=== PATIENT | male | born 1960 | race Caucasian/White ===

== ENCOUNTER 2023-07-14 07:47 | Day surgery (SDC) | payer BC, SELFPAY ==
[2023-07-14] VITALS (21 sets, daily range): BP systolic 13–158; BP diastolic 59–103; BMI 20.2
[2023-07-14 08:11] LABS: Hematocrit 49.6 % (39.0-52.0); Hemoglobin 16.9 g/dL (13.0-18.0); Mean Corp Hgb Conc. 34.1 g/dL (33.0-37.0); Mean Corpuscular Hgb 32.8 pg (27.0-31.0); Mean Corpuscular Volume 96.3 fL (80.0-94.0); Mean Platelet Volume 9.2 fL (7.4-10.4); Platelet Count 316 10^3/uL (130-400); Red Blood Cell Count 5.15 10^6/uL (4.70-6.10); Red Cell Dist. Width 13.5 % (11.5-14.5)
[2023-07-14 08:21] LABS: INR 0.92; PT 12.5 Sec (11.4-14.6)
[2023-07-14 08:22] LABS: APTT 25.4 Sec (23.4-35.0)
[2023-07-14 08:27] LABS: Blood Urea Nitrogen 16 mg/dl (9-20); Calcium 9.4 mg/dl (8.4-10.2); Carbon Dioxide 29 mmol/L (22-30); Chloride 96 mmol/L (98-107); Glucose 190 mg/dl (70-99); Potassium 4.4 mmol/L (3.5-5.1); Sodium 134 mmol/L (135-145); eGFR > 60.00
[2023-07-14 09:02] LABS: Glucose - Point of Care 158 mg/dl (70-99)
[2023-07-14 09:45] LABS: Troponin I < 0.012 ng/ml
--- NOTE | 2023-07-14 11:32 | W.SUR.PREOP ---
Pre-Operative Surgical Note
-
I have examined this patient prior to the performance of the scheduled procedure.
The patient's condition is unchanged from the time of the current History and
Physical and the patient is able to undergo the scheduled procedure.
--- NOTE | 2023-07-14 13:15 | W.IMMPOSTOP ---
Surgical Immed Post Op Note
-
Primary Surgeon: Esvin Merritt III, MD
Assisting Surgeon: Peter Chapin MD PGY2
Pre-op Diagnosis: PAOD
Post-op Diagnosis: Same
Procedure Performed:
1. Ultrasound guided left FIBERGLASS BOAT BUILDER 7Fr access
2. [id number] angiogram, bilateral lower extremity angiograms
3. IVL Bilateral common and external iliac
4. Right external iliac stent x 2 (7x59)
5. Left common iliac stent (8x39)
6. Left external iliac stent (7x59)
Anesthesia Type: MAC
Specimen / Cultures: None
Estimated Blood Loss: 25cc
Complications: None
Operative Findings: Ultrasound-guided left FIBERGLASS BOAT BUILDER 7Fr access. Initial angio showed diffuse bilateral iliac disease. The right side bypass was widely patent. To get into the right iliac, the left proximal common iliac required IVL and stenting. Once
into the right iliac, the entire external iliac was IVL'd and stented. The proximal right common iliac was IVL'd but had good angiographic result and a bounding femoral pulse so it was decided not to stent at this time. The left external iliac was
IVL'd and stented prior to shooting a [employer] run off. The run off noted a chronically occluded left SFA with late filling of the pop. There is peroneal flow into the foot, late filling into the AT, and occluded PT.
[2023-07-14 14:27] LABS: Glucose - Point of Care 173 mg/dl (70-99)
--- NOTE | 2023-07-14 15:34 | PTCARENOTE ---
Pt arrived from PACU. Pt alert and oriented. Reinforced post op instructions. revieewd all discharge instruction with good understanding. Family updated via phone. Ultra sound present and doing procedure now, meal ordered. Pulses still doppler omn
the Left and palpbale on the rt. Denies any pain which he came in with.
--- NOTE | 2023-07-14 15:58 | OR.RPT ---
Operative Report
Operative Report
Date of Operation: 07/14/2023
Pre Op Diagnosis:
1.) Severe peripheral arterial occlusive disease
2.) Suspected threatened right lower extremity bypass based on surveillance duplex results
3.) Critical limb threatening ischemia left lower extremity manifested by ischemic rest pain
Post Op Diagnosis:
1.) Severe peripheral arterial occlusive disease
2.) Suspected threatened right lower extremity bypass based on surveillance duplex results
3.) Critical limb threatening ischemia left lower extremity manifested by ischemic rest pain
Procedure:
1.) Intravascular lithotripsy to left common iliac artery (10 mm x 30 mm L6 shockwave balloon)
2.) Balloon angioplasty and stenting of left common iliac artery (8 mm x 39 mm GORE VBX; postdilated to 10 mm proximal)
3.) Intravascular lithotripsy to right external iliac artery (8 mm x 60 mm M5 shockwave balloon)
4.) Balloon angioplasty and stenting of right external iliac artery (overlapping 7 mm x 59 mm GORE VBX stents x 2)
5.) Intravascular lithotripsy to right common iliac artery (8 mm x 60 mm M5 shockwave balloon)
6.) Intravascular lithotripsy to external iliac artery (8 mm x 60 mm M5 shockwave balloon)
7.) Balloon angioplasty and stenting of left external iliac artery stenosis (7 mm x 39 mm GORE VBX stent)
8.) Diagnostic aortobiiliac arteriogram
9.) Diagnostic BILATERAL lower extremity arteriograms
10.) Ultrasound-guided percutaneous access to the left common femoral artery
Surgeon: Esvin Merritt III, MD
Balance Weigher: Peter Chapin MD PGY-2
Anesthesia: Sedation with local
Complications: None
Estimated Blood Loss: 25 cc
History and Indications for Procedure: 63-year-old male with severe bilateral lower extremity peripheral arterial occlusive disease.
Procedure in Detail: Shreyas Bardales was correctly identified and placed supine on the operating table. After adequate induction of anesthesia the bilateral groins were prepped and draped in the usual sterile fashion. A timeout was performed with the
nursing and anesthesia staff confirming the patient's identity as well as the nature and laterality of the procedure.
The left common femoral artery was identified under ultrasound guidance. The artery was patent. The superior and inferior aspects of the femoral head were identified with radiographic guidance and marked at the skin level. The proposed puncture site
was infiltrated with local anesthesia. We saved a copy of the ultrasound image to the medical record. Under ultrasound guidance we accessed the left common femoral artery with a micropuncture needle and upsized to a 5 Fr sheath over a Bentson wire.
We could not pass the Bentson wire into the aorta through the left common iliac artery. A retrograde arteriogram was performed through the 5 Maldivian sheath which demonstrated heavily calcified plaque in the left common iliac artery contributing to a
critical stenosis. The left iliac artery stents were patent. The distal left external iliac artery had heavily calcified plaque contributing to high-grade stenosis.
Systemic heparin was administered at this point. Using a Glidewire and Quickcross catheter under roadmap guidance we were able to navigate across the left common iliac artery and into the aorta. The wire was exchanged out for a Storq wire. A 7
Maldivian sheath was then placed through the left femoral access. The wire was then exchanged out for a V18 wire through the Quickcross catheter. Due to the heavily calcified nature of the left common iliac artery plaque and in an effort to achieve
maximum luminal gain with endovascular intervention I elected to proceed with intravascular lithotripsy. A 10 mm x 30 mm L6 shockwave balloon was placed across the left common iliac artery stenosis under roadmap guidance. Alternating rounds of
lithotripsy pulse delivery at sub-nominal pressure and angioplasty at nominal pressure was performed across the stenosis. In between rounds of pulse delivery and angioplasty the balloon was deflated and repositioned under roadmap guidance. All 300
pulses were delivered. Subsequent arteriogram demonstrated an nice result following lithotripsy. Under roadmap guidance over the V18 wire I then positioned a 8 mm x 39 mm GORE VBX stent. The stent was deployed in the desired location. I then
postdilated the proximal aspect of the stent with a 10 mm angioplasty balloon. Subsequent arteriogram demonstrated an excellent technical result with a widely patent left common iliac artery stent and no significant residual stenosis identified.
At this point we continued on with the remainder of the endovascular intervention. The Shepherimedo hook flush catheter was advanced into the distal abdominal aorta and a diagnostic aorto-biiliac arteriogram was performed:
AORTO-ILIAC ARTERIOGRAM:
Aorta: Heavily calcified circumferentially. Patent. No stenosis identified
Right common iliac artery: Heavily calcified plaque. Stenoses identified.
Right external iliac artery: Diffusely and heavily calcified. High-grade stenoses seen throughout.
Left common iliac artery: Patent stent with no significant residual stenosis
Left external iliac artery: Patent stents proximally. Heavily calcified [place] distal external iliac artery with areas of high-grade stenosis extending to the inguinal ligament
Under roadmap guidance using a Glidewire and the Shepherds hook catheter we selected the right common iliac artery and then the external iliac artery. A Quickcross catheter was tracked up and over the aortic bifurcation and placed in the distal
external iliac artery. A diagnostic right lower extremity arteriogram was then performed which demonstrated the following:
Right LOWER EXTREMITY:
Common femoral artery: Patent with no significant stenosis identified
Profunda femoral artery: Patent with no significant stenosis identified
Superficial femoral artery: Occluded
Bypass: Patent. Proximal and distal anastomoses widely patent with no stenosis identified. Vein conduit widely patent with no stenosis identified.
The popliteal artery below the knee was patent with no stenosis identified. Three-vessel tibial artery runoff was visualized to the distal calf
Through the Quickcross catheter we selected the profunda femoral artery with a Glidewire. Exchanged out for a 7 Fr 45 cm sheath over a Storq wire. Exchanged out for a 0.014 wire. Due to the heavily calcified nature of the right external iliac
artery plaque as well as the right common iliac artery plaque and in an effort to achieve maximum luminal gain with endovascular intervention I elected to proceed with intravascular lithotripsy. A 8 mm x 60 mm M5 shockwave balloon was placed across
the right external iliac artery stenosis under roadmap guidance. Alternating rounds of lithotripsy pulse delivery at sub-nominal pressure and angioplasty at nominal pressure was performed across the stenosis. In between rounds of pulse delivery and
angioplasty the balloon was deflated and repositioned under roadmap guidance. Upon repositioning of the balloon and subsequent reinflation it was clear that the balloon had torn. 150 pulses had been delivered at this point to the right external
iliac artery. Therefore I removed the M5 balloon and opened a new one. I continued with pulse delivery and angioplasty on both the right external iliac artery and then the right common iliac artery. Not all pulses were utilized to treat these
segments and some where left for treatment of the left external iliac artery disease. Subsequent arteriogram demonstrated an nice result following lithotripsy. Overlapping 7 mm x 59 mm GORE VBX stents were placed in the desired location under
roadmap guidance within the right external iliac artery. Each was deployed individually in the desired location. Subsequent arteriogram through the 7 Maldivian sheath demonstrated an excellent technical result with brisk flow through the right iliac
system. The right common iliac artery was widely patent with brisk flow. The right external iliac artery stents were widely patent with no significant residual stenosis identified. There was brisk outflow through the common femoral artery and the
visualized proximal portion of the bypass.
I then focused my attention on the distal left external iliac artery disease. The 7 Maldivian sheath was pulled back into the distal left external iliac artery. The 0.014 wire was pulled back and readvanced into the aorta. A retrograde arteriogram
was performed through the sheath under magnification view to clearly visualize the calcified left external iliac artery disease. Due to the heavily calcified nature of the left external iliac artery plaque and in an effort to achieve maximum
luminal gain with endovascular intervention I elected to proceed with intravascular lithotripsy here. The 8 mm x 60 mm M5 shockwave balloon was placed across the left external iliac artery plaque. Alternating rounds of lithotripsy pulse delivery
at 7 nominal pressure and angioplasty at nominal pressure was performed across the left external iliac artery stenosis. All remaining pulses on the balloon catheter were utilized. Subsequent arteriogram demonstrated a nice result following
lithotripsy. Under roadmap guidance a 7 mm x 59 mm GORE VBX stent was placed across the distal left external iliac artery and deployed in the desired location. A completion arteriogram demonstrated an excellent technical result with a widely
patent left iliac arterial system and no residual stenosis identified. There was brisk outflow from the iliac system into the left lower extremity.
A completion runoff arteriogram of the left lower extremity was performed
LEFT LOWER EXTREMITY:
Common femoral artery: Widely patent with no stenosis identified
Profunda femoral artery: Patent with no stenosis identified
Superficial femoral artery: Chronically occluded
Popliteal artery: Reconstitutes above the knee but is heavily diseased with areas of stenosis identified. Patent below the knee but small diameter. No obvious stenosis identified.
Anterior tibial artery: Patent but diffusely small in diameter throughout. Sluggish flow lagging well behind the peroneal artery. Dorsalis pedis artery is minimally visualized and appears to occlude distally
Peroneal artery: Dominant tibial artery runoff. Continues to the ankle where large posterior branch reconstitutes the distal PT and plantar branches in the foot.
Posterior tibial artery: Occluded
Satisfied with this result we then concluded the procedure. Protamine was administered. The sheath was pulled from the left femoral access and direct manual pressure was held over the puncture site. Hemostasis was achieved. A sterile dressing was
applied.
The patient tolerated the procedure well and was taken to the recovery area in stable condition.
Attestation: I was present and responsible for the entire procedure.
Signed:
Esvin Merritt III, MD
[facility] Vascular Surgery
[phone] (crsk)
[2023-07-14] MEDS: TYLENOL 650 MG PO (17:15)
[2023-07-14] MEDS: NSS 1000 IV (17:39)
--- NOTE | 2023-07-17 13:00 | W.PV.INTER ---
VPI Note
Pre Admission Note
Functional Status: Full
Ambulation: Ambulate Independently
Pre Op Medications
Pre Op ASA: Yes
Pre Op Statin: Yes
Pre Op GRANT Inhibitor/ARB: No
Pre Op P2y12 Antagonist: Clopidogrel
Pre Op Beta Blockers: Chronic > 30 Days
Pre Op Chronic Anticoagulant: None
Pre Op Cilostazol: No
Post Op Medications
Post Op ASA: Yes
Post Op Statin: Yes
Post Op GRANT Inhibitor/ARB: No
Post Op P2y12 Antagonist: Clopidogrel
Post Op Beta Blockers: Chronic > 30 Days
Post Op Chronic Anticoagulant: None
Post Op Cilostazol: No
== END 2023-07-14 18:22 | disposition home or self-care (01) ==
LOC: CATH 07:47
PROVIDERS: Nurse Practitioner Acute Care; ATTENDING PHYSICIAN Surgery Vascular Surgery; FAMILY PHYSICIAN Family Medicine; OTHER PHYSICIAN Internal Medicine Cardiovascular Disease
DX: I70.222 Atherosclerosis of native arteries of extremities with rest pain, left leg (principal); I70.201 Unspecified atherosclerosis of native arteries of extremities, right leg; Z98.890 Other specified postprocedural states; E13.9 Other specified diabetes mellitus without complications; Z79.84 Long term (current) use of oral hypoglycemic drugs; Z79.82 Long term (current) use of aspirin; Z79.02 Long term (current) use of antithrombotics/antiplatelets; I10 Essential (primary) hypertension; I25.10 Atherosclerotic heart disease of native coronary artery without angina pectoris; I25.2 Old myocardial infarction
CPT/HCPCS: C9765 ×2; 75625; 75716; 76937; 80048; 82962; 84484; 85027; 85610; 85730; 93005; 93971; C1725; C1769; C1874; C1894; C9764; Q9967

== ENCOUNTER → 2023-08-29 07:06 | Outpatient (REF) | payer BC, SELFPAY ==
[2023-08-29] MEDS: LEXISCAN 0.400000000000000022 MG IV (08:36)
[2023-08-29] MEDS: FLUSH (NSS) 1 FLUSH IV (08:36)
== END ==
LOC: RCS 07:06
PROVIDERS: ATTENDING PHYSICIAN Internal Medicine Cardiovascular Disease; FAMILY PHYSICIAN Family Medicine
DX: R07.9 Chest pain, unspecified (principal)
CPT/HCPCS: 78452; 93017; A9500; J2785

== ENCOUNTER 2023-09-01 09:37 | Inpatient (IN) | payer BC, SELFPAY ==
[2023-08-28 09:33] VITALS: BMI 21.3
[2023-08-28 09:43] LABS: % Basophils 0.9 % (0-2); % Eosinophils 3.7 % (0-6); % Immature Granulocytes 0.4 % (0-0.5); % Lymphocytes 26.7 % (20.5-51.1); % Monocytes 8.5 % (1.7-9.3); % Neutrophils 59.8 % (42.2-75.2); Absolute Basophils 0.1 10^3/uL (0-0.2); Absolute Eosinophils 0.5 10^3/uL (0-0.7); Absolute Immature Granulocytes 0.1 10^3/uL (0-0.05); Absolute Lymphocytes 3.3 10^3/uL (1.2-3.4); Absolute Monocytes 1.1 10^3/uL (0.1-0.6); Absolute Neutrophils 7.4 10^3/uL (1.4-6.5); Hematocrit 47.2 % (39.0-52.0); Mean Corp Hgb Conc. 33.9 g/dL (33.0-37.0); Mean Corpuscular Hgb 32.1 pg (27.0-31.0); Mean Corpuscular Volume 94.8 fL (80.0-94.0); Mean Platelet Volume 9.3 fL (7.4-10.4); Nucleated Red Blood Cells % 0 % (-); Platelet Count 242 10^3/uL (130-400); Red Blood Cell Count 4.98 10^6/uL (4.70-6.10); Red Cell Dist. Width 13.7 % (11.5-14.5); White Blood Cell Count 12.4 10^3/uL (4.8-10.8)
[2023-08-28 09:51] LABS: INR 0.93; PT 12.7 Sec (11.4-14.6)
[2023-08-28 09:52] LABS: APTT 27.6 Sec (23.4-35.0)
[2023-08-28 10:15] LABS: Blood Urea Nitrogen 20 mg/dl (9-20); Calcium 9.7 mg/dl (8.4-10.2); Carbon Dioxide 27 mmol/L (22-30); Chloride 103 mmol/L (98-107); Estimated Creatinine Clearance 121 ml/min; Glucose 148 mg/dl (70-99); Potassium 4.7 mmol/L (3.5-5.1); Sodium 136 mmol/L (135-145); eGFR > 60.00
--- NOTE | 2023-08-29 15:09 | PTCARENOTE ---
Patients 08/28 CXR abnormal Eulalia @ Dr. Cross office and Dr. Vaughn notified- no additional interventions required.
[2023-09-01] VITALS (15 sets, daily range): BP systolic 62–141; BP diastolic 43–108; BMI 19.1
[2023-09-01 10:57] LABS: Glucose - Point of Care 166 mg/dl (70-99)
[2023-09-01] MEDS: BACTROBAN NASAL 1 GRAM NASAL (11:24)
[2023-09-01] MEDS: PERIDEX 0.12% ORAL RINSE 15 ML PO (11:24)
[2023-09-01] MEDS: NSS 500 IV (11:25)
--- NOTE | 2023-09-01 15:25 | CON.INTV ---
Consultation
Consultation Request
Date/Time Consultation Requested: 09-01-23
Date/Time Consultation Performed: 09-01-23
Requesting Provider: Dr Merritt
Performing Provider: Dr Berman
Reason for Consultation: LLE bypass
Medical History
-
Chief Complaint: s/p JENNIFER bypass
History of Present Illness:
Mr Shreyas Bardales is a 63/M adm 09-01 for vascular surgery for known h/o PAD with persistent ischemic rest pain in L foot.
Seen by Dr Merritt at office, he recommended LLE bypass, surgery performed today with no major issues.
Smoker, not on home O2 or BDs, reports mild intermittent cough.
Past Medical History
Past Medical History: Other (see A&P for PMH/PSH)
Social History
Tobacco: Smoker
Alcohol: None
Drug: None
Personal: Single
Living: With Roomate
Employment: Employed
Family History
Family History: Reviewed & Not Pertinent
Allergies / Home Medications
Allergies
Allergy/AdvReac Type Severity Reaction Status Date / Time
lisinopril Allergy cough Verified 08/24/23 10:22
varenicline Allergy chest pain Verified 08/24/23 10:22
Home Medications
Medication Instructions Recorded Confirmed Last Taken Type
aspirin 81 mg tablet,delayed 81 mg PO DAILY 05/13/13 08/24/23 07/14/23 History
release
nitroglycerin 0.4 mg sublingual 0.4 mg sublingual [id number] PRN 05/15/13 08/24/23 07/12/23 03:00 Rx
tablet chest pain #60 tabs 2 tabs
amlodipine 5 mg tablet 5 mg PO DAILY 05/20/14 08/24/23 07/13/23 18:00 History
5 mg
clopidogrel 75 mg tablet 75 mg PO DAILY 02/01/19 08/24/23 07/14/23 07:00 History
75 mg
salicylic acid 6 % topical gel 40 gm topical PRN PRN skin 05/12/20 08/24/23 07/12/23 History
(Keralyt Rx) irritation 40 gm
metformin 500 mg tablet 1,000 mg PO BID AT 0800,1700 05/19/20 08/24/23 07/12/23 19:00 Rx
1000 mg
metoprolol succinate 50 mg 50 mg PO QPM 05/19/20 08/24/23 07/13/23 19:00 Rx
tablet,extended release 24 hr 50 mcg
atorvastatin 40 mg tablet 40 mg PO QPM 07/11/23 08/24/23 07/13/23 18:00 History
40 mg
empagliflozin 10 mg tablet 10 mg PO QPM 07/11/23 08/24/23 07/11/23 19:00 History
(Jardiance) 10 mg
multivitamin 1 tab PO DAILY 07/11/23 08/24/23 07/13/23 08:00 History
1 tab
isosorbide mononitrate 60 mg 60 mg PO BID 08/24/23 08/24/23 Unknown History
tablet,extended release 24 hr
Review of Systems
-
History Source: Patient
All other systems: Negative unless noted
Respiratory: Cough (mild intermittent chronic cough, mostly dry)
Cardiac: Other (incisional JENNIFER pain)
Vitals / Labs / Diagnostic Testing
Vital Signs
Temp Pulse Resp BP Pulse Ox
98.4 F 75 19 141/63 92
09/01/23 10:17 09/01/23 10:17 09/01/23 10:17 09/01/23 10:17 09/01/23 10:17
Lab Data
08/28/23 09:30
08/28/23 09:30
Microbiology
08/28/23 09:30 Nose MRSA Screen - Final
No Methicillin Resistant Staphylococcus aureus isolated.
Diagnostic Testing:
Physical Exam
-
HEENT: Normocephalic and Moist Mucous Membranes
Cardiovascular: Regular Rhythm, Murmur (n) and Peripheral Edema (n)
Respiratory: Rhonchi (few scattered) and Non-Labored Respirations
GI: Soft, Non Distended and Non Tender
Neurology: Awake, AO x 3 and No Motor Deficits
Skin: Dry
General: Comfortable
Assessment
-
Assessment:
Mr Shreyas Bardales is a 63/M adm 09-01 for vascular surgery for known h/o PAD with persistent ischemic rest pain in L foot. Seen by Dr Merritt at office, he recommended LLE bypass, surgery performed today with no major issues. Smoker, not on home O2 or
BDs, reports mild intermittent cough. Seen at PACU, on 4L, POx 98%, respiratory weiner comfortable
Impression:
PAD with persistent ischemic rest pain in L foot
S/p L common femoral endarterectomy with patch angioplasty, L common femoral artery to below-knee popliteal artery bypass
Chronic cough
Conditions DIRECTOR OF MEDICAL SERVICES:
PAD, R/L SFA, L iliac stent 2013, fem to popliteal bypass 2019
CAD, s/p AMI, s/p PTCA SHERIN 2012
T2DM
HLD
Bilateral CA disease
L ureter lithotripsy and stent 2015
Smoker
Plan:
Postoperative surgical intensive care unit monitoring
Supplemental oxygen as needed
Incentive spirometry
Aspiration precautions
Neuro and vascular checks per protocol
Vascular surgery following-correspondence and operative notes reviewed
Albuterol nebs prn
Guaifenesin
Acapella valve
Advised to quit smoking
Rec pulm follow up after d/c
DVT prophylaxis
Early nutrition
Early mobilization
D/w Mr Bardales and AIRPLANE PATROL PILOT
Critical care time: 35 min
Diagnostic tests:
CXR 08-28-23: PA/lat, emphysematous nixon, lateral with flat diaphragms
[2023-09-01 16:31] LABS: ACT-LR - POC 387 Seconds (116-155)
[2023-09-01 16:38] LABS: Glucose - Point of Care 187 mg/dl (70-99)
[2023-09-01 17:34] LABS: ACT-LR - POC 211 Seconds (116-155)
[2023-09-01 17:44] LABS: Glucose - Point of Care 209 mg/dl (70-99)
[2023-09-01 18:28] LABS: Hematocrit 42.4 % (39.0-52.0); Hemoglobin 14.5 g/dL (13.0-18.0); Mean Corp Hgb Conc. 34.2 g/dL (33.0-37.0); Mean Corpuscular Hgb 32.7 pg (27.0-31.0); Mean Corpuscular Volume 95.5 fL (80.0-94.0); Mean Platelet Volume 9.2 fL (7.4-10.4); Platelet Count 245 10^3/uL (130-400); Red Blood Cell Count 4.44 10^6/uL (4.70-6.10); Red Cell Dist. Width 13.7 % (11.5-14.5); White Blood Cell Count 23.5 10^3/uL (4.8-10.8)
--- NOTE | 2023-09-01 18:34 | OR.RPT ---
Operative Report
Operative Report
Date of Operation: September 01, 2023
Pre Op Diagnosis: Critical limb threatening ischemia left lower extremity manifested by ischemic rest pain and nonhealing left lateral foot wound
Post Op Diagnosis: Critical limb threatening ischemia left lower extremity manifested by ischemic rest pain and nonhealing left lateral foot wound
Procedure:
1.) Left common femoral endarterectomy with patch angioplasty using bovine pericardium
2.) Left common femoral artery to below-knee popliteal artery bypass with 6 mm ring reinforced Propaten graft
Surgeon: Esvin Merritt III, MD
Billet Cutter: Ilan Blanc MD PGY-1
Anesthesia: General
Complications: None
Estimated Blood Loss: 200 cc
History and Indications for Procedure: 63-year-old male with critical limb threatening ischemia of the left lower extremity.
Procedure in Detail: Shreyas Bardales was correctly identified and placed supine on the operating table. After adequate induction of anesthesia the abdomen, pelvis and left leg were prepped and draped in the usual sterile fashion. The patient received
preoperative antibiotics. A timeout was performed with the nursing and anesthesia staff confirming the patients identity and the nature and laterality of the procedure.
A vertical incision was made over the left groin. Electrocautery and sharp dissection were used to expose the femoral vessels. Lymphatics were ligated between silk ties and clips. Proximal control was obtained on the proximal common femoral artery
at the inguinal ligament. Distal dissection was continued towards the femoral bifurcation. The distal common femoral artery and femoral bifurcation were heavily calcified. The proximal superficial femoral artery was exposed and encircled with a
vessel loop. The profunda femoral artery was sharply exposed to the first branch point. Distal control was obtained on these 2 branches.
A distal incision was made on the proximal left medial calf. The below the knee popliteal artery was carefully exposed and proximal and distal control obtained with vessel loops. There was some calcification of the popliteal artery but a soft spot
was identified for the distal anastomosis.
A tunnel was created between the two incisions.
A 6 mm ringed Propaten graft was brought through the tunnel, keeping the proper orientation with the blue dots on the graft.
Systemic heparin was administered.
The patient was systemically heparinized. The proximal and distal vessel loops were secured. An 11-blade and Momin scissors were used to make and extend the arteriotomy on the common femoral artery. The arteriotomy was carried distally to the
femoral bifurcation. The arteriotomy was extended up to the proximal common femoral artery. An endarterectomy was performed in the standard fashion with a [place] elevator. The proximal extent of the plaque was transected and then additional
elements of plaque were pulled out from the distal external iliac artery using forceps and clamps. The distal end of the plaque feathered nicely at the origin of the profunda femoral artery. The endarterectomy plane was then irrigated with
heparinized saline solution and any loose fronds of tissue were removed. I brought onto the field a precut piece of bovine pericardium and this was used as a patch. The patch was then sewn in place using a running 6-0 Prolene suture. Prior to the
completion of the anastomosis, we forward and back flushed the artery. The anastomosis was then completed. The proximal and distal vessel loops were then released. There was an excellent pulse within the common femoral artery and profunda
femoral artery. The superficial femoral artery was chronically occluded. The suture line was closely inspected for hemostasis which was achieved. The proximal and distal vessel loops were then reapplied. An arteriotomy made in the bovine
pericardium patch with an 11-blade and extended proximally and distally with Momin scissors.The end of the graft was beveled and an end-to-side anastomosis was created with a running CV 6 [place]-Cristobal suture. Following this the vessel loops were
removed. Hemostasis was achieved at the suture line. There was brisk pulsatile bleeding from the distal end of the graft. The graft was back flushed with heparinized saline and a soft clamp applied to the graft just distal to the anastomosis.
I then secured the proximal and distal loops on the below the knee popliteal artery. An 11-blade was used to carefully make an arteriotomy. This was extended proximally and distally with Momin scissors. We flushed the distal artery with heparinized
saline which flushed easily. The graft was pressurized, shortened and beveled for the anastomosis. We sewed an end-to-side anastomosis to the popliteal artery using a running 7-0 Prolene suture. Prior to the completion of the anastomosis we forward
flushed the graft and irrigated under the mosquera with heparinized saline. The anastomosis was completed and we removed the proximal clamp on the graft as well as the vessel loops on the popliteal artery. Immediately there was a palpable pulse in the
popliteal artery distal to the anastomosis. This clearly augmented with compression and release of the graft. An excellent quality Doppler signal was also audible in the popliteal artery outflow which augmented with compression and release of the
graft.
Protamine was administered. All suture lines were closely inspected and hemostasis achieved. Hemostasis was achieved in all wound beds. The wounds were irrigated with warm saline.
The incisions were closed in multiple layers and sterile MELECIO dressings applied
The patient was extubated and brought to the PACU in stable condition after tolerating the procedure quite well.
Attestation: I was present and responsible for the entire procedure
Signed:
Esvin Merritt III, MD
[facility] Vascular Surgery
[phone] (zcmo)
[2023-09-01 18:38] LABS: APTT 28.6 Sec (23.4-35.0); INR 1.12; PT 14.2 Sec (11.4-14.6)
[2023-09-01 18:43] LABS: Blood Urea Nitrogen 11 mg/dl (9-20); Calcium 8.1 mg/dl (8.4-10.2); Carbon Dioxide 24 mmol/L (22-30); Chloride 108 mmol/L (98-107); Estimated Creatinine Clearance 119 ml/min; Glucose 221 mg/dl (70-99); Potassium 4.5 mmol/L (3.5-5.1); Sodium 135 mmol/L (135-145); eGFR > 60.00
[2023-09-01 18:54] LABS: Glucose - Point of Care 253 mg/dl (70-99)
[2023-09-01] MEDS: SUBLIMAZE 25 MCG IV (19:21)
[2023-09-01] MEDS: NOVOLOG vial 100 UNITS SC (19:26)
[2023-09-01 19:51] LABS: % Basophils 0.7 % (0-2); % Eosinophils 1.4 % (0-6); % Lymphocytes 4.6 % (20.5-51.1); % Monocytes 2.3 % (1.7-9.3); Absolute Basophils 0.2 10^3/uL (0-0.2); Absolute Eosinophils 0.3 10^3/uL (0-0.7); Absolute Immature Granulocytes 0.2 10^3/uL (0-0.05); Absolute Lymphocytes 1.1 10^3/uL (1.2-3.4); Absolute Monocytes 0.5 10^3/uL (0.1-0.6); Absolute Neutrophils 20.5 10^3/uL (1.4-6.5); Nucleated Red Blood Cells % 0 % (-)
[2023-09-01] MEDS: NSS 1000 IV (20:15)
[2023-09-01] MEDS: LIPITOR 40 MG PO (20:48)
[2023-09-01] MEDS: MUCINEX 600 MG PO (20:48)
[2023-09-01] MEDS: DILAUDID 0.5 MG IV (20:48)
--- NOTE | 2023-09-01 23:27 | PTCARENOTE ---
Received pt to ICU room 3367 from PACU via bed at 2019. Pt s/p left common femoral endarterectomy and left SPOOL SORTER below knee popliteal artery bypass. Pulse check done in tandem with PACU nurse upon arrival to floor. See post cath flowsheet for details,
neurovascular checks ongoing. Left groin MELECIO dressing C/D/I with only small spot of drainage noted, left medial leg just below knee with aquacel dressing, dry and intact with small amount of drainage noted as well. Pt reports 10/10 pain to LLE,
medicated with PRN Dilaudid, see EMAR. Physical assessment completed, see nursing shift assessment flowsheet for details. SpO2 94-95% on 2LNC. SR 80s on monitor.
[2023-09-02] VITALS (25 sets, daily range): BP systolic 84–141; BP diastolic 47–110; PULSE 79–97; BMI 19.5
[2023-09-02] MEDS: HEPARIN 5000 UNITS SC ×4 (00:10→23:37)
[2023-09-02] MEDS: DILAUDID 0.5 MG IV ×2 (00:10→03:07)
--- NOTE | 2023-09-02 04:34 | PTCARENOTE ---
Assessment unchanged. Neurovascular checks Q1 hour ongoing, see flowsheet for details. Medicated for pain throughout the shift with IV Dilaudid, see EMAR. SR 70s on monitor, SpO2 95% on 2LNC.
[2023-09-02 04:42] LABS: Hemoglobin 14.2 g/dL (13.0-18.0); Mean Corp Hgb Conc. 34.6 g/dL (33.0-37.0); Mean Corpuscular Hgb 32.6 pg (27.0-31.0); Mean Platelet Volume 9.3 fL (7.4-10.4); Platelet Count 211 10^3/uL (130-400); Red Blood Cell Count 4.36 10^6/uL (4.70-6.10); Red Cell Dist. Width 13.7 % (11.5-14.5); White Blood Cell Count 19.1 10^3/uL (4.8-10.8)
[2023-09-02 04:56] LABS: INR 1.13; PT 14.3 Sec (11.4-14.6)
[2023-09-02 05:06] LABS: APTT 25.3 Sec (23.4-35.0)
[2023-09-02 05:07] LABS: Blood Urea Nitrogen 13 mg/dl (9-20); Calcium 8.4 mg/dl (8.4-10.2); Carbon Dioxide 24 mmol/L (22-30); Chloride 105 mmol/L (98-107); Estimated Creatinine Clearance 121 ml/min; Glucose 222 mg/dl (70-99); Potassium 4.3 mmol/L (3.5-5.1); Sodium 134 mmol/L (135-145); eGFR > 60.00
[2023-09-02] MEDS: NSS 1000 IV (05:07)
[2023-09-02 07:25] LABS: Glucose - Point of Care 200 mg/dl (70-99)
[2023-09-02] MEDS: NOVOLOG FLEXPEN-MODERATE RESISTANCE 3 UNITS SC ×2 (07:41→11:45)
[2023-09-02] MEDS: IMDUR (EXTENDED RELEASE) 60 MG PO ×2 (07:42→19:42)
[2023-09-02] MEDS: ASPIR LOW (ENTERIC COATED) 81 MG PO (07:42)
[2023-09-02] MEDS: MUCINEX 600 MG PO ×2 (07:42→19:42)
[2023-09-02] MEDS: NORVASC 5 MG PO (07:42)
[2023-09-02] MEDS: THERAGRAN 1 TABLET PO (07:42)
[2023-09-02] MEDS: NSS (PRESERVATIVE FREE) 10 ML IV (07:43)
[2023-09-02] MEDS: PROTONIX IV 40 MG IV (07:43)
--- NOTE | 2023-09-02 07:51 | W.PN.VS ---
Addendum entered and electronically signed by Helen Maldonado MD 09/02/23 09:31:
Patient complained of pain over night, now improved.
NAD
Incisions c/d/i
+biphasic PT/AT signals
Increase pain regimen
d/c candelaria, a line
PT/OT later if pain improved
Original Note:
Today's Communication / Plan
-
Discussed with Dr Coombs
Assessment/Plan
-
POD 1 Left common femoral endarterectomy with patch angioplasty using bovine pericardium
Left common femoral artery to below-knee popliteal artery bypass with 6 mm ring reinforced Propaten graft
Plan:
-DC candelaria
-OOB/chair, ambulate after lunch
-Increase diet
-pain control
-PT/OT later today
-cont ASA/plavix
-cont ICU care today
Subjective Data
-
Date of Service: September 02, 2023
Pt seen at bedside this am. Pt resting comfortably. Complains of moderate 'soreness.' No events overnight. VSS
Objective Data
-
Vital Signs
Temp Pulse Resp BP Pulse Ox
98.1 F 99 15 133/61 97
09/02/23 07:27 09/02/23 07:42 09/02/23 06:00 09/02/23 07:42 09/02/23 06:00
Intake and Output
09/01/23 09/02/23 09/03/23
06:59 06:59 06:59
Intake Total 2520 / 2520
Output Total 2630 / 2630
Balance -110 / -110
Intake:
Oral fluids 1680 / 1680
IV fluids (Total) 840 / 840
Nss 1,000 ml @ 80 mls/hr IV . 740 / 740
[id number] SHASHI Rx#:[id number]
ns 100 / 100
Output:
Urine, Candelaria 2630 / 2630
Lab Results
09/02/23 04:31
09/02/23 04:31
Calcium 8.4 mg/dl (8.4-10.2) 09/02/23 04:31
Physical Exam
-
AAOx3
No tachypnea on RA
No tachycardia
Abd soft, NT
groin site with MELECIO C/D/I, no drainage or hematoma
calf site aquacel c/d/i, no swelling noted
BL feet warm, pink with palpable DP pulses
[2023-09-02] MEDS: TYLENOL 650 MG PO ×3 (07:56→17:45)
[2023-09-02] MEDS: COLACE 100 MG PO ×2 (08:01→19:41)
[2023-09-02] MEDS: PLAVIX 75 MG PO (08:01)
--- NOTE | 2023-09-02 08:54 | W.PN.INTV ---
Today's Communication / Plan
Recommendations
O2 protocol
Guaifenesin
Alb ns prn
NRT
Assessment
-
Assessment:
Mr Shreyas Bardales is a 63/M adm 09-01 for vascular surgery for known h/o PAD with persistent ischemic rest pain in L foot. Seen by Dr Merritt at office, he recommended LLE bypass, surgery performed today with no major issues. Smoker, not on home O2 or
BDs, reports mild intermittent cough. Seen at PACU, on 4L, POx 98%, respiratory weiner comfortable
Impression:
PAD with persistent ischemic rest pain in L foot
S/p L common femoral endarterectomy with patch angioplasty, L common femoral artery to below-knee popliteal artery bypass
Mild chronic cough
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
PAD, R/L SFA, L iliac stent 2013, fem to popliteal bypass 2019
CAD, s/p AMI, s/p PTCA SHERIN 2012
T2DM
HLD
Bilateral CA disease
L ureter lithotripsy and stent 2015
Smoker
Plan:
Postoperative surgical intensive care unit monitoring
Supplemental oxygen as needed
Incentive spirometry
Aspiration precautions
Neuro and vascular checks per protocol
Vascular surgery following-correspondence and operative notes reviewed
Albuterol nebs prn
Guaifenesin
Acapella valve
Advised to quit smoking
Rec pulm follow up after d/c with [facility]MA
DVT prophylaxis
Early nutrition
Early mobilization
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
Disposition
Diagnostic tests:
CXR 08-28-23: PA/lat, emphysematous nixon, lateral with flat diaphragms
Subjective Dataa
Subjective Data
Date of Service:
Date of Service: September 02, 2023
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
Subjective:
No post op events reported
Denies major complaints
Wants to go home
Review of Systems
General: Fever (n), Sweats (n), Chills (n) and Satisfactory Appetite
HEENT: Epistaxis and Dysphagia (n)
Cardiopulmonary: Dyspnea, Cough (trace), Wheezing and Edema (n)
GI: Abdominal Pain (n), Nausea and Vomiting (n)
Neuro: Weakness
Objective Data
Data Reviewed
Vital Signs / I&O / Oxygen:
Vital Signs
Temp Pulse Resp BP Pulse Ox
98.1 F 92 21 84/70 96
09/02/23 07:27 09/02/23 08:00 09/02/23 08:00 09/02/23 08:00 09/02/23 08:08
Intake and Output
09/01/23 09/02/23 09/03/23
06:59 06:59 06:59
Intake Total 2520 / 2920 720 / 720
Output Total 2630 / 2880 500 / 500
Balance -110 / 40 220 / 220
SaO2 96
Nasal Cannula flow liters per 2
minute
Physical Exam
General: Comfortable
HEENT: Normocephalic and Moist Mucous Membranes
Cardiovascular: Regular Rhythm, Murmur (n) and Peripheral Edema (n)
Respiratory: Rhonchi (few scattered), Accessory Resp Muscle Use (n) and Stridor (n)
GI: Soft, Non Distended and Non Tender
Neurology: Awake, AO x 3 and No Motor Deficits
Skin: Dry
Labs/Micro/Reports
Lab Data
09/02/23 04:31
09/02/23 04:31
Laboratory Results
09/01/23 09/01/23 09/01/23
17:58 17:58 17:58
PT 14.2 Cancelled
INR 1.12 Cancelled
APTT 28.6
09/02/23
04:31
PT 14.3
INR 1.13
APTT 25.3
[2023-09-02] MEDS: NICODERM TRANSDERMAL 21 MG TRANSDERM (09:32)
[2023-09-02] MEDS: DILAUDID 2 MG PO ×3 (09:43→19:41)
[2023-09-02 11:56] LABS: Glucose - Point of Care 209 mg/dl (70-99)
--- NOTE | 2023-09-02 12:34 | PTCARENOTE ---
Update with surgery team this am. IVF capped, delined, candelaria removed and follow up void trends and time out. Updated assessment, vital signs ongoing and as documented. Continue follow up vascular checks. Await PT/OT for afternoon evaluation.
Continue follow up pain management, bowel regimen, and medications via Emar. Continue teaching and supportive cares.
[2023-09-02] MEDS: NOVOLOG FLEXPEN-MODERATE RESISTANCE 5 UNITS SC (15:52)
[2023-09-02 16:01] LABS: Glucose - Point of Care 286 mg/dl (70-99)
[2023-09-02] MEDS: TOPROL XL 50 MG PO (17:44)
[2023-09-02] MEDS: LIPITOR 40 MG PO (17:44)
--- NOTE | 2023-09-02 18:00 | PTCARENOTE ---
Patient assessment unchanged thru day. Family at bedside for afternoon. Patient worked with PT/OT. In and out of bed to chair. In and out of chair to bed. Patient very weak, very tentative moving with out assist. C/C feels very stiff and sore.
Voided 550 post candelaria cath removal earlier. Continue to reinforce teaching. Noted patient bp in left arm very inconsistent and inaccurate. New cuff replaced to right arm. Continue follow up vascular checks. Weak palpable pulses, followed up with
doppler biphasic toen. Will continue hourly rounds, frequent patient safety checks and call woodard in reach.
--- NOTE | 2023-09-02 19:56 | PTCARENOTE ---
Assumed care of pt at 1900. Pt is A/O x4, flat affect noted. Reports pain to LLE, medicated with PRN Dilaudid towards start of shift, see EMAR. SR 80s on monitor, SpO2 93% on RA. Physical assessment and neurovascular assessments completed, see
flowsheets for details. Pt demonstrates ability to reposition himself in bed without assistance. Pt requesting something to help him sleep, order obtained for Melatonin.
[2023-09-02 21:25] LABS: Glucose - Point of Care 224 mg/dl (70-99)
[2023-09-02] MEDS: MELATONIN 5 MG PO (23:37)
[2023-09-02] MEDS: DILAUDID 4 MG PO (23:40)
[2023-09-03] VITALS (17 sets, daily range): BP systolic 96–138; BP diastolic 44–68; PULSE 85; BMI 19.8
--- NOTE | 2023-09-03 00:34 | PTCARENOTE ---
Assessment unchanged. Reports 10/10 pain to LLE but no change noted in neurovascular assessment. See EMAR for pain med administration details. 90-91% on RA, SR 80s on monitor.
[2023-09-03 05:31] LABS: Hematocrit 36.4 % (39.0-52.0); Hemoglobin 12.3 g/dL (13.0-18.0); Mean Corp Hgb Conc. 33.8 g/dL (33.0-37.0); Mean Corpuscular Hgb 32.1 pg (27.0-31.0); Mean Platelet Volume 9.4 fL (7.4-10.4); Platelet Count 201 10^3/uL (130-400); Red Blood Cell Count 3.83 10^6/uL (4.70-6.10); Red Cell Dist. Width 13.6 % (11.5-14.5)
--- NOTE | 2023-09-03 05:39 | PTCARENOTE ---
0400 assessment unchanged. Pt said he was able to sleep for 'a couple of hours' after receiving his melatonin and pain med. When asked if he was in pain this AM, pt stated 'I'm ok right now', said that his leg still hurts but he thinks if he could
get up and walk around he would feel better. Assisted pt OOB to chair, x1 assist, pt's gait is not very steady and tries to reach and grab for furniture to steady himself. Pt now OOB to chair watching TV.
[2023-09-03 06:01] LABS: Blood Urea Nitrogen 15 mg/dl (9-20); Calcium 8.6 mg/dl (8.4-10.2); Carbon Dioxide 28 mmol/L (22-30); Chloride 105 mmol/L (98-107); Estimated Creatinine Clearance 121 ml/min; Glucose 191 mg/dl (70-99); Potassium 4.3 mmol/L (3.5-5.1); Sodium 133 mmol/L (135-145); eGFR > 60.00
[2023-09-03] MEDS: ASPIR LOW (ENTERIC COATED) 81 MG PO (07:28)
[2023-09-03] MEDS: NSS (PRESERVATIVE FREE) 10 ML IV (07:28)
[2023-09-03] MEDS: HEPARIN 5000 UNITS SC ×3 (07:28→23:05)
[2023-09-03] MEDS: PROTONIX IV 40 MG IV (07:28)
[2023-09-03] MEDS: MUCINEX 600 MG PO ×2 (07:28→20:36)
[2023-09-03] MEDS: NOVOLOG FLEXPEN-MODERATE RESISTANCE 1 UNITS SC (07:29)
[2023-09-03] MEDS: COLACE 100 MG PO ×2 (07:29→20:36)
[2023-09-03] MEDS: NORVASC 5 MG PO (07:29)
[2023-09-03] MEDS: PLAVIX 75 MG PO (07:30)
[2023-09-03] MEDS: THERAGRAN 1 TABLET PO (07:30)
[2023-09-03] MEDS: IMDUR (EXTENDED RELEASE) 60 MG PO ×2 (07:30→20:36)
[2023-09-03] MEDS: TYLENOL 650 MG PO ×2 (07:30→12:59)
[2023-09-03 07:35] LABS: Glucose - Point of Care 182 mg/dl (70-99)
[2023-09-03] MEDS: NICODERM TRANSDERMAL 21 MG TRANSDERM (07:38)
[2023-09-03] MEDS: DILAUDID 2 MG PO ×2 (10:35→16:47)
--- NOTE | 2023-09-03 10:35 | W.PN.INTV ---
Today's Communication / Plan
Recommendations
Dispo
Assessment
-
Assessment:
Mr Shreyas Bardales is a 63/M adm 09-01 for vascular surgery for known h/o PAD with persistent ischemic rest pain in L foot. Seen by Dr Merritt at office, he recommended LLE bypass, surgery performed today with no major issues. Smoker, not on home O2 or
BDs, reports mild intermittent cough. Seen at PACU, on 4L, POx 98%, respiratory weiner comfortable
Impression:
PAD with persistent ischemic rest pain in L foot
S/p L common femoral endarterectomy with patch angioplasty, L common femoral artery to below-knee popliteal artery bypass
Mild chronic cough
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
PAD, R/L SFA, L iliac stent 2013, fem to popliteal bypass 2019
CAD, s/p AMI, s/p PTCA SHERIN 2012
T2DM
HLD
Bilateral CA disease
L ureter lithotripsy and stent 2015
Smoker
Plan:
Postoperative surgical intensive care unit monitoring completed
Supplemental oxygen as needed
Incentive spirometry
Aspiration precautions
Neuro and vascular checks per protocol
Vascular surgery following-correspondence and operative notes reviewed
Albuterol nebs prn
Guaifenesin
Acapella valve
Advised to quit smoking
Rec pulm follow up after d/c with [facility]MA
DVT prophylaxis
Early nutrition
Early mobilization
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
Disposition per vasc sx
Diagnostic tests:
CXR 08-28-23: PA/lat, emphysematous nixon, lateral with flat diaphragms
Subjective Dataa
Subjective Data
Date of Service:
Date of Service: September 03, 2023
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
Subjective:
No major events reported
Off O2
Sitting in chair, comfortable
Review of Systems
General: Fever (n), Sweats (n), Chills (n) and Satisfactory Appetite
HEENT: Epistaxis (n) and Dysphagia (n)
Cardiopulmonary: Dyspnea, Cough (chronic mild), Chest Pain (n) and Edema
GI: Abdominal Pain (n), Nausea (n) and Vomiting (n)
Neuro: Weakness (n)
Objective Data
Data Reviewed
Vital Signs / I&O / Oxygen:
Vital Signs
Temp Pulse Resp BP Pulse Ox
97.9 F 88 20 132/68 95
09/03/23 07:43 09/03/23 09:02 09/03/23 09:02 09/03/23 09:02 09/03/23 09:02
Intake and Output
09/02/23 09/03/23 09/04/23
06:59 06:59 06:59
Intake Total 2520 / 2920 3280 / 3280 340 / 340
Output Total 2630 / 2880 3125 / 3125 400 / 400
Balance -110 / 40 155 / 155 -60 / -60
SaO2 95
Nasal Cannula flow liters per 2
minute
Physical Exam
General: Comfortable
HEENT: Normocephalic and Moist Mucous Membranes
Cardiovascular: Regular Rhythm, Murmur (n) and Peripheral Edema (n)
Respiratory: Rhonchi (few scattered), Accessory Resp Muscle Use (n) and Stridor (n)
GI: Soft, Non Distended and Non Tender
Neurology: Awake, AO x 3 and No Motor Deficits
Skin: Dry
Labs/Micro/Reports
Lab Data
09/03/23 05:21
09/03/23 05:21
[2023-09-03 11:15] LABS: Glucose - Point of Care 243 mg/dl (70-99)
[2023-09-03] MEDS: NOVOLOG FLEXPEN-MODERATE RESISTANCE 3 UNITS SC ×2 (11:34→16:47)
--- NOTE | 2023-09-03 12:37 | PTCARENOTE ---
Updated assessment, vital signs ongoing and as documented. Family at bedside updated by patient. Continue with teaching and supportive cares. Await surgery for follow up. Assessment, vascular checks unchanged thru shift. Continue with help of pt/ot
to increase recovery, movement and continue to work toward improved ambulation and strength. OOb to chair, sit stand, march and ambulate room with rolling walker and assist of PT team. Continue follow up trends. Medications via Emar. Hourly rounds,
frequent patient safety checks with use of call woodard as needed.
[2023-09-03 16:53] LABS: Glucose - Point of Care 219 mg/dl (70-99)
[2023-09-03] MEDS: TOPROL XL 50 MG PO (17:41)
[2023-09-03] MEDS: LIPITOR 40 MG PO (17:42)
[2023-09-03 21:25] LABS: Glucose - Point of Care 235 mg/dl (70-99)
[2023-09-03] MEDS: NOVOLOG FLEXPEN 3 UNITS SC (21:42)
--- NOTE | 2023-09-03 22:30 | PTCARENOTE ---
Assumed care of pt at 1900. Pt is A/O x4, pleasant and cooperative with care, slightly flat affect noted. At start of shift pt verbalized that his pain was 'ok' and that he did not need anything for it, discussed plan of taking pain med and
melatonin at bedtime like the previous night and pt was agreeable to this plan. Physical assessment and neurovascular assessment done, see flowsheets for details. Spot-checking SpO2, 93% on RA. SR 80s on monitor. Call woodard and personal items within
reach.
[2023-09-03] MEDS: MELATONIN 5 MG PO (23:05)
[2023-09-03] MEDS: DILAUDID 4 MG PO (23:05)
[2023-09-04] VITALS (12 sets, daily range): BP systolic 115–139; BP diastolic 56–74; PULSE 89; BMI 19.9
--- NOTE | 2023-09-04 00:51 | PTCARENOTE ---
Assessment unchanged. Medicated with Dilaudid and Melatonin around 2300 as planned. Currently sinus tach low 100s on monitor.
[2023-09-04 03:53] LABS: Hematocrit 34.7 % (39.0-52.0); Hemoglobin 11.8 g/dL (13.0-18.0); Mean Platelet Volume 9.5 fL (7.4-10.4); Platelet Count 205 10^3/uL (130-400); Red Blood Cell Count 3.69 10^6/uL (4.70-6.10); Red Cell Dist. Width 13.5 % (11.5-14.5); White Blood Cell Count 13.1 10^3/uL (4.8-10.8)
[2023-09-04 04:17] LABS: Blood Urea Nitrogen 17 mg/dl (9-20); Calcium 8.5 mg/dl (8.4-10.2); Carbon Dioxide 27 mmol/L (22-30); Chloride 103 mmol/L (98-107); Estimated Creatinine Clearance 124 ml/min; Glucose 227 mg/dl (70-99); Potassium 4.2 mmol/L (3.5-5.1); Sodium 133 mmol/L (135-145); eGFR > 60.00
--- NOTE | 2023-09-04 07:27 | W.PN.VS ---
Addendum entered and electronically signed by Keo Franco MD 09/04/23 07:35:
Seen and examined with SANDRA Michelle. Agree with findings as noted below. No significant events noted. Patient without significant complaints. Soreness at the incision sites as expected. Otherwise no significant complaints. On exam/she is awake and
alert. No acute distress. Abdomen is soft, nondistended, nontender. Left groin dressing is clean dry and intact. No hematoma. Thigh and calf are soft. Left calf dressing clean dry and intact. No calf hematoma noted. His feet are both pink
and warm and well-perfused with 2+ palpable DP pulses bilaterally. Plan/as discussed and noted below.
Original Note:
Today's Communication / Plan
-
Patient seen and examined at bedside with attending Dr. Keo Franco, below plan reviewed with attending.
Assessment/Plan
-
POD 3 Left common femoral endarterectomy with patch angioplasty using bovine pericardium
Left common femoral artery to below-knee popliteal artery bypass with 6 mm ring reinforced Propaten graft
Plan:
-Continue to encourage ambulation as tolerated
-pain control
-cont ASA/plavix
-Case management consult for home health
-Melecio dressing to be replaced by vascular nurse practitioner prior to discharge
-Likely discharge later this afternoon
Subjective Data
-
Date of Service: September 04, 2023
Patient seen and examined, offers no complaints. Reports adequate postoperative pain management. Denies nausea, vomiting, fever, chills. Reports tolerating p.o. diet.
Objective Data
-
Vital Signs
Temp Pulse Resp BP Pulse Ox
98.5 F 96 18 119/66 93
09/04/23 03:36 09/04/23 06:00 09/04/23 06:00 09/04/23 06:00 09/03/23 20:39
Intake and Output
09/03/23 09/04/23 09/05/23
06:59 06:59 06:59
Intake Total 3280 / 3280 2600 / 2600
Output Total 3125 / 3125 2124
Balance 155 / 155 475 / 475
Intake:
Oral fluids 3040 / 3040 2600 / 2600
IV fluids (Total) 240 / 240
Nss 1,000 ml @ 80 mls/hr IV . 240 / 240
[id number] SHASHI Rx#:[id number]
Output:
Urine, Merritt 850 / 850
Urine, Voided 2274 / 2274
Other:
Number of approximated LARGE 1
amounts of urine
Lab Results
09/04/23 03:44
09/04/23 03:44
Calcium 8.5 mg/dl (8.4-10.2) 09/04/23 03:44
Physical Exam
-
AAOx3
No tachypnea on RA
No tachycardia
Abd soft, NT
groin site with MELECIO C/D/I, no drainage or hematoma
calf site aquacel c/d/i, no swelling noted
BL feet warm, pink with palpable DP pulses
[2023-09-04 07:35] LABS: Glucose - Point of Care 230 mg/dl (70-99)
--- NOTE | 2023-09-04 07:47 | W.PN.INTV ---
Today's Communication / Plan
Recommendations
Neurovascularly intact
Increase activity
Outpatient pulmonary evaluation
Transfer out of ICU-call pulmonary if respiratory issues arise
Assessment
-
Mr Shreyas Bardales is a 63/M adm 09-01 for vascular surgery for known h/o PAD with persistent ischemic rest pain in L foot. Seen by Dr Merritt at office, he recommended LLE bypass, surgery performed today with no major issues. Smoker, not on home O2 or
BDs, reports mild intermittent cough. Seen at PACU, on 4L, POx 98%, respiratory weiner comfortable
PAD with persistent ischemic rest pain in L foot
S/p L common femoral endarterectomy with patch angioplasty, L common femoral artery to below-knee popliteal artery bypass
Mild chronic cough
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
PAD, R/L SFA, L iliac stent 2013, fem to popliteal bypass 2019
CAD, s/p AMI, s/p PTCA SHERIN 2012
T2DM
HLD
Bilateral CA disease
L ureter lithotripsy and stent 2015
Smoker
COPD suspected
Plan:
Hemodynamically stable
Neurovascularly intact
Wean oxygen
Incentive spirometry
Aspiration precautions
Albuterol as needed-currently not bronchospastic
Mucus clearing devices
Mucinex as needed
Neuro and vascular checks per protocol
Vascular surgery following-correspondence and operative notes reviewed
Smoking cessation counseling ongoing
Nicotine patch
DVT prophylaxis-on heparin
Early nutrition
Increase mobilization
Stable and could be discharged from ICU to telemetry-call pulmonary if respiratory issues arise
Recommend outpatient pulmonary evaluation-ongoing smoking cessation, PFTs, yearly low-dose lung cancer screening CT, etc.
Reviewed with critical care nursing
Diagnostic tests:
CXR 08-28-23: PA/lat, emphysematous nixon, lateral with flat diaphragms
Subjective Dataa
Subjective Data
Date of Service:
Date of Service: September 04, 2023
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
Subjective:
Feels well, no complaints of shortness of breath, chest pain or abdominal pain
Review of Systems
General: Other (Per HPI)
Objective Data
Data Reviewed
Vital Signs / I&O / Oxygen:
Vital Signs
Temp Pulse Resp BP Pulse Ox
98.5 F 96 18 119/66 93
09/04/23 03:36 09/04/23 06:00 09/04/23 06:00 09/04/23 06:00 09/03/23 20:39
Intake and Output
09/03/23 09/04/23 09/05/23
06:59 06:59 06:59
Intake Total 3280 / 3280 2600 / 2600
Output Total 3125 / 3125 2125 / 2125
Balance 155 / 155 475 / 475
SaO2 93
Nasal Cannula flow liters per 2
minute
Physical Exam
General: Respiratory Distress (n) and Comfortable
HEENT: Normocephalic and Moist Mucous Membranes
Cardiovascular: Regular Rhythm, Murmur (n) and Peripheral Edema (n)
Respiratory: Wheeze (n), Crackles (n), Rhonchi (few scattered), Non-Labored Respirations, Accessory Resp Muscle Use (n) and Stridor (n)
GI: Soft, Non Distended and Non Tender
Neurology: Awake, AO x 3 and No Motor Deficits
Skin: Dry, Good Color and Cyanosis (n)
Labs/Micro/Reports
Lab Data
09/04/23 03:44
09/04/23 03:44
[2023-09-04] MEDS: NOVOLOG FLEXPEN-MODERATE RESISTANCE 3 UNITS SC (07:48)
[2023-09-04] MEDS: NORVASC 5 MG PO (07:48)
[2023-09-04] MEDS: IMDUR (EXTENDED RELEASE) 60 MG PO ×2 (07:49→20:27)
[2023-09-04] MEDS: PROTONIX IV 40 MG IV (07:49)
[2023-09-04] MEDS: ASPIR LOW (ENTERIC COATED) 81 MG PO (07:49)
[2023-09-04] MEDS: NICODERM TRANSDERMAL 21 MG TRANSDERM (07:49)
[2023-09-04] MEDS: PLAVIX 75 MG PO (07:49)
[2023-09-04] MEDS: COLACE 100 MG PO ×2 (07:49→20:27)
[2023-09-04] MEDS: MUCINEX 600 MG PO ×2 (07:49→20:27)
[2023-09-04] MEDS: DILAUDID 2 MG PO (07:50)
[2023-09-04] MEDS: NSS (PRESERVATIVE FREE) 10 ML IV (07:50)
[2023-09-04] MEDS: HEPARIN 5000 UNITS SC ×2 (07:50→20:27)
[2023-09-04] MEDS: THERAGRAN 1 TABLET PO (07:51)
--- NOTE | 2023-09-04 08:00 | PTCARENOTE ---
Received patient from hourly shift. Patient AAOx3, flat affect, able to make needs known. States he has 10:10 pain in left foot while eating breakfast, administered 2mg of dilaudid. Patient is on room air, 93% oxygen saturation, has a moist harsh
cough, states he is a smoker. Sinus rhythm on monitor. with palpable pulses. Neurovascular checks ordered q4 WNL. Patient does still state that 'his left foot is slightly numb but both feet have been numb for some time.' Patient is using
urinal, currently eating breakfast, will cover accucheck. Dr. Franco in to see patient this morning, patient due to go home this afternoon, will assist patient in getting OOB after breakfast.
[2023-09-04] MEDS: TYLENOL 650 MG PO (10:15)
[2023-09-04] MEDS: GLUCOPHAGE 1000 MG PO ×2 (11:15→17:00)
[2023-09-04 11:29] LABS: Glucose - Point of Care 278 mg/dl (70-99)
[2023-09-04] MEDS: DILAUDID 4 MG PO ×2 (12:02→20:31)
[2023-09-04] MEDS: NOVOLOG FLEXPEN-MODERATE RESISTANCE 5 UNITS SC (12:04)
--- NOTE | 2023-09-04 12:11 | PTCARENOTE ---
Got patient OOB to chair, stand by assist. Patient does complain of 10:10 pain everytime when asked. Has been able to eat breakfast and lunch, is sitting watching TV. was able to walk into bathroom and brush teeth/have bowel movement. Awaiting
case management for discharge planning.
--- NOTE | 2023-09-04 13:36 | CM ---
CM following re: discharge planning.
Discussed in Rounds, reviewed pt's chart, met with pt.
Pt is a 63 year old male, admitted with primary dx of POD 3 Left common femoral endarterectomy with patch angioplasty using bovine pericardium.
Pt reports he lives with brother and his family in [facility], 2 steps to enter, has no children. 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 No DME, VN or SNF history.
MD order for VN services noted. Pt preferred [facility]. [facility].
CM consulted to check the sumner for Xarelto 2.5 mg BID. Per pharmacist, under insurance - $75.00 co-pay.
Free 30 day supply coupon provided.
$10.00 coupon for every 30 or 90 days supply provided and pt is aware to follow registration instruction.
PCP: Tejas Tello
Pharmacy: [facility]
D/C plan: home with [facility] and family support. Pt stated his brother or sister will transport home at discharge.
CM will follow with discharge plan updates as hospitalization progresses
--- NOTE | 2023-09-04 15:44 | PTCARENOTE ---
Pt arrived to 2S via wheelchair assisted to bed Ax1 with the RW, gait steady. Telemetry applied. LLE [place] DSG and aquacell with a scant amount of old drainage noted, Dsg's otherwise D/I. + palpable B/L DP and PT pulses. LLE neurovascular assessment
WDL. Bed locked and in the lowest position, safety maintained. Oriented to room and call woodard, family at bedside.
--- NOTE | 2023-09-04 15:47 | PN.CDI ---
CDI
- -
CDI:
Physician Documentation Request
Admit Date: 09/01/23 09:37
Dear Ryan CELESTE,
Clinical Indicators:
Patient admitted with critical limb ischemia; s/p Left common femoral endarterectomy with patch angioplasty 09/01.
Anesthesia Report: IVF 1100 ml EBL 250 ml
IVF NSS @100 ml/hr post op
Hgb/Hct trend:
09/01/23 09/03/23 09/04/23
17:58 05:21 03:44
Hgb 14.5 12.3 L 11.8 L
Hct 42.4 36.4 L 34.7 L
Based on the above, could you clarify in the progress notes, the appropriate diagnosis, if significant, that supports the above lab abnormalities and additional evaluation, monitoring and/or treatment rendered:
Anemia, multifactorial due to acute blood loss and hemodilution
Anemia due to hemodilution only
Abnormal lab value, clinically insignificant
Other
Use of terms such as suspected, likely, concern for, or probable (associated with a specific diagnosis that is being evaluated, monitored, or treated as if it exists) are acceptable and can be coded in the inpatient setting, when documented at the
time of discharge.
Thank you,
CHUY Chung RN
CDI Specialist
available via tiger text
Please use your independent medical judgment in providing your response.
--- NOTE | 2023-09-04 15:55 | PN.CDI ---
CDI
- -
CDI:
Physician Documentation Request
Admit Date: 09/01/23 09:37
Dear Avi CELESTE,
Clinical Indicators:
Patient admitted with critical limb ischemia; s/p Left common femoral endarterectomy with patch angioplasty 09/01.
IVF Normosol, NSS given.
Sodium levels:
09/02/23 09/03/23 09/04/23
04:31 05:21 03:44
Sodium 134 L 133 L 133 L
Based on the above, could you clarify in the progress notes, the appropriate diagnosis, if significant, that supports the above abnormalities and additional evaluation, monitoring and/or treatment rendered:
Hyponatremia
Abnormal lab values, clinically insignificant
Other
Use of terms such as suspected, likely, concern for, or probable (associated with a specific diagnosis that is being evaluated, monitored, or treated as if it exists) are acceptable and can be coded in the inpatient setting, when documented at the
time of discharge.
Thank you,
CHUY Chung RN
CDI Specialist
available via tiger text
Please use your independent medical judgment in providing your response.
[2023-09-04 16:05] LABS: Glucose - Point of Care 190 mg/dl (70-99)
[2023-09-04] MEDS: NOVOLOG FLEXPEN-MODERATE RESISTANCE 1 UNITS SC (16:17)
[2023-09-04] MEDS: LIPITOR 40 MG PO (17:00)
[2023-09-04] MEDS: TOPROL XL 50 MG PO (17:00)
[2023-09-04] MEDS: XARELTO 2.5 MG PO (20:27)
[2023-09-04 21:45] LABS: Glucose - Point of Care 187 mg/dl (70-99)
[2023-09-04] MEDS: MELATONIN 5 MG PO (22:03)
[2023-09-05] VITALS (7 sets, daily range): BP systolic 109–131; BP diastolic 51–69; PULSE 93; O2SAT 96
[2023-09-05] MEDS: FLUSH (NSS) 1 FLUSH IV (03:24)
[2023-09-05 06:23] LABS: Hematocrit 35.2 % (39.0-52.0); Hemoglobin 12.4 g/dL (13.0-18.0); Mean Corp Hgb Conc. 35.2 g/dL (33.0-37.0); Mean Corpuscular Hgb 32.9 pg (27.0-31.0); Mean Corpuscular Volume 93.4 fL (80.0-94.0); Mean Platelet Volume 9.7 fL (7.4-10.4); Platelet Count 238 10^3/uL (130-400); Red Blood Cell Count 3.77 10^6/uL (4.70-6.10); Red Cell Dist. Width 13.5 % (11.5-14.5); White Blood Cell Count 12.1 10^3/uL (4.8-10.8)
[2023-09-05 06:52] LABS: Blood Urea Nitrogen 16 mg/dl (9-20); Carbon Dioxide 28 mmol/L (22-30); Chloride 100 mmol/L (98-107); Estimated Creatinine Clearance 124 ml/min; Glucose 206 mg/dl (70-99); Potassium 4.1 mmol/L (3.5-5.1); Sodium 135 mmol/L (135-145); eGFR > 60.00
[2023-09-05 07:31] LABS: Glucose - Point of Care 247 mg/dl (70-99)
[2023-09-05] MEDS: NICODERM TRANSDERMAL 21 MG TRANSDERM (07:58)
[2023-09-05] MEDS: THERAGRAN 1 TABLET PO (07:59)
[2023-09-05] MEDS: MUCINEX 600 MG PO ×2 (07:59→20:46)
[2023-09-05] MEDS: IMDUR (EXTENDED RELEASE) 60 MG PO ×2 (07:59→20:46)
[2023-09-05] MEDS: COLACE 100 MG PO ×2 (08:00→20:46)
[2023-09-05] MEDS: ASPIR LOW (ENTERIC COATED) 81 MG PO (08:00)
[2023-09-05] MEDS: NORVASC 5 MG PO (08:00)
[2023-09-05] MEDS: GLUCOPHAGE 1000 MG PO ×2 (08:00→16:17)
[2023-09-05] MEDS: XARELTO 2.5 MG PO ×2 (08:01→20:46)
[2023-09-05] MEDS: HEPARIN 5000 UNITS SC ×2 (08:02→20:44)
[2023-09-05] MEDS: DILAUDID 4 MG PO ×2 (08:06→20:50)
--- NOTE | 2023-09-05 08:06 | W.PN.VS ---
Addendum entered and electronically signed by Esvin Merritt III, MD 09/05/23 09:25:
This patient was seen and examined with BOOKER Hawkins. I agree with the history and physical exam as well as the assessment and plan. I have the following additions:
Looks great
Left groin incision clean and dry
Melecio replaced
Left calf incision clean and dry
Palpable DP
Home on [facility] protocol
Follow-up in the office for wound check in 2 weeks
I was once again very clear with Shreyas that he needs to quit smoking immediately. Based on his verbal response and body language I do not get the sense that he will follow this recommendation.
Signed:
Esvin Merritt III, MD
[facility] Vascular Surgery
[phone] ([phone])
Original Note:
Today's Communication / Plan
-
Seen and assessed with Dr Merritt
Assessment/Plan
-
POD 4 Left common femoral endarterectomy with patch angioplasty using bovine pericardium
Left common femoral artery to below-knee popliteal artery bypass with 6 mm ring reinforced Propaten graft
Plan:
-wishes to work with PT today before DC
-Melecio dressing will remain for DC
-Likely discharge later this afternoon
Subjective Data
-
Date of Service: September 05, 2023
Pt seen at bedside this am with Dr Merritt. Pt resting comfortably, no complaints at this time. No events overnight
Objective Data
-
Vital Signs
Temp Pulse Resp BP Pulse Ox
97.6 F 88 17 125/69 93
09/05/23 07:56 09/05/23 07:56 09/05/23 07:56 09/05/23 07:56 09/05/23 07:56
Intake and Output
09/04/23 09/05/23 09/06/23
06:59 06:59 06:59
Intake Total 2600 / 2600 2459 / 2459
Output Total 2124 300 / 300
Balance 475 / 475 2159
Intake:
Oral fluids 2600 / 2600 2459 / 2459
Output:
Urine, Voided 2124 300 / 300
Other:
Number of approximated MODERATE 1
amounts of urine
Number of approximated LARGE 1 1
amounts of urine
Lab Results
09/05/23 05:38
09/05/23 05:38
Calcium 9.0 mg/dl (8.4-10.2) 09/05/23 05:38
Physical Exam
-
AAOx3
No tachypnea on RA
No tachycardia
Abd soft, NT
groin site MELECIO removed C/D/I, no drainage or hematoma, well-approxmiated
MELECIO replaced
calf site aquacel removed, c/d/i, no drainage noted, left TAIL DOGGER
BL feet warm, pink with palpable DP pulses
[2023-09-05] MEDS: NOVOLOG FLEXPEN-MODERATE RESISTANCE 3 UNITS SC ×2 (08:15→12:04)
--- NOTE | 2023-09-05 10:50 | VNURNOTE ---
Home Health Liaison met with patient at 1030 to discuss [facility] nurse/therapy, visits, schedule and homebound status. Patient is agreeable and understands that visits at home will be 2-3 x per week to assess and teach medical management.
[facility] brochure provided with contact information. Patient is aware that [facility] will contact him for start of care in 1-2 days after discharge from .
[facility] referral completed in [facility] Port.
[2023-09-05 11:29] LABS: Glucose - Point of Care 209 mg/dl (70-99)
--- NOTE | 2023-09-05 14:53 | PN.DE.MGMTRT ---
Insulin Management
- -
08/05/2023: Diabetes Management Consult
63 year old male POD 4 Left common femoral endarterectomy with patch angioplasty using bovine pericardium
Left common femoral artery to below-knee popliteal artery bypass with 6 mm ring reinforced Propaten graft.
PMH includes: CAD s/p [place], s/p PTCA SHERIN 2012, HTN, HLD, PAD, R/L SFA, Left iliac stent 2013, fem to popliteal bypass 2019, B/L CA disease
L ureter lithotripsy and stent 2015, Current Smoker and T2DM.
A1C 8.0%, Current Diabetes regimen includes: Metformin 1000 mg BID and Jardiance 10 mg daily. States he has a working glucose meter at home.
Glucose has been elevated FBG 191-227, discussed adding basal insulin to current regimen, pt declined stating that he will not be able to afford it and that he would not take insulin because he believes he has made several changes and his glucose
numbers have been well managed.
His premeal 182-286. Will start Glipizide 5mg BID, 1st dose @ 1800 for optimal glucose control. Add Low Corrective insulin with meals.
Pt was amenable to Glipizide 5mg BID in addition to Metformin 1000mg BID and Jardiance 10mg daily. Cont same at discharge.
Discussed above plan with primary team via TT
Diabetes History
- -
Type of Diabetes: 2 requiring insulin
Pre-Admission Diabetes Regimen
09/05/23
05:38
Creatinine 0.5 L
Lab Results
Hemoglobin A1c Cancelled 09/05/23 10:49
Insulin Pump Settings
IP Diabetes Regimen
09/04/23 09/04/23 09/05/23
16:04 21:38 05:38
Glucose 206 H
POC Glucose 190 H 187 H
09/05/23 09/05/23
07:30 11:27
Glucose
POC Glucose 247 H 209 H
Patient Education
[2023-09-05 16:17] LABS: Glucose - Point of Care 184 mg/dl (70-99)
[2023-09-05] MEDS: NOVOLOG FLEXPEN-LOW RESISTANCE 1 UNITS SC (16:18)
[2023-09-05] MEDS: GLUCOTROL 5 MG PO (16:18)
[2023-09-05] MEDS: LIPITOR 40 MG PO (17:25)
[2023-09-05] MEDS: JARDIANCE 10 MG PO (17:26)
[2023-09-05] MEDS: TOPROL XL 50 MG PO (17:26)
[2023-09-05 21:40] LABS: Glucose - Point of Care 82 mg/dl (70-99)
[2023-09-05] MEDS: MELATONIN 5 MG PO (21:52)
[2023-09-06 03:00] VITALS: BP 121/60
[2023-09-06 07:05] VITALS: BP 120/61
[2023-09-06 07:11] LABS: Glucose - Point of Care 151 mg/dl (70-99)
--- NOTE | 2023-09-06 07:17 | W.PN.VS ---
Addendum entered and electronically signed by Keo Franco MD 09/06/23 07:28:
Seen and examined with SANDRA Blantno. Agree with findings as noted below. Patient without significant complaints this morning. Left groin dressing clean dry and intact. No hematoma. Feet are both pink and warm and well-perfused with palpable DP
pulses bilaterally. Plan/as discussed and noted below.
Original Note:
Today's Communication / Plan
-
Seen and assessed with Dr Franco
Assessment/Plan
-
POD 5 Left common femoral endarterectomy with patch angioplasty using bovine pericardium
Left common femoral artery to below-knee popliteal artery bypass with 6 mm ring reinforced Propaten graft
Plan:
-ready for DC
Subjective Data
-
Date of Service: September 06, 2023
Pt seen at bed this am with Dr Franco. Pt offers no complaints at this time. States he walked with PT yesterday and did well. Feels ready to go home.
Objective Data
-
Vital Signs
Temp Pulse Resp BP Pulse Ox
98.4 F 84 16 121/60 95
09/06/23 03:00 09/06/23 03:00 09/06/23 03:00 09/06/23 03:00 09/06/23 03:00
Intake and Output
09/05/23 09/06/23 09/07/23
06:59 06:59 06:59
Intake Total 2460 / 2460 1440 / 1440
Output Total 300 / 300
Balance 2160 / 2160 1440 / 1440
Intake:
Oral fluids 2460 / 2460 1440 / 1440
Output:
Urine, Voided 300 / 300
Other:
Number of approximated MODERATE 1 4
amounts of urine
Number of approximated LARGE 1 2
amounts of urine
Lab Results
09/05/23 05:38
09/05/23 05:38
Calcium 9.0 mg/dl (8.4-10.2) 09/05/23 05:38
Physical Exam
-
AAOx3
No tachypnea on RA
No tachycardia
Abd soft, NT
groin site MELECIO C/D/I, no drainage or hematoma
calf site c/d/i, no drainage noted, left DOUGIE
BL feet warm, pink with palpable DP pulses
--- NOTE | 2023-09-06 07:21 | W.DS.TRANS ---
DC Summary - Estate Administrator
-
Discharge Instructions:
Discharge Diagnosis/Procedures Peripheral artery disease. Left common femoral
endarterectomy with patch angioplasty using
bovine pericardium and left common femoral
artery to below-knee popliteal artery bypass
with graft
Diet As tolerated,Diabetic, Carb Controlled
Activity No strenuous activity
Driving Restrictions No driving for 1 week
Bathing Restrictions OK to Shower
Instructions:
Stand-Alone Forms: DC Instr - Vascular OR
Changes to Home Medications: Yes
Discharge Medications:
DC Medications w/original date entered in [facility]
aspirin 81 mg tablet,delayed release 81 mg PO DAILY 05/13/13
nitroglycerin 0.4 mg sublingual tablet 0.4 mg sublingual [id number] PRN chest pain #60 tabs 05/15/13
amlodipine 5 mg tablet 5 mg PO DAILY 05/20/14
salicylic acid 6 % topical gel (Keralyt Rx) 40 gm topical PRN PRN skin irritation 05/12/20
metformin 500 mg tablet 1,000 mg PO BID AT 0800,1700 05/19/20
metoprolol succinate 50 mg tablet,extended release 24 hr 50 mg PO QPM 05/19/20
atorvastatin 40 mg tablet 40 mg PO QPM 07/11/23
empagliflozin 10 mg tablet (Jardiance) 10 mg PO QPM 07/11/23
multivitamin 1 tab PO DAILY 07/11/23
isosorbide mononitrate 60 mg tablet,extended release 24 hr 60 mg PO BID 08/24/23
docusate sodium 100 mg capsule 100 mg PO BID #30 caps 09/04/23
glipizide 5 mg tablet 5 mg PO BID@0800,1700 #60 tabs 09/05/23
hydromorphone 4 mg tablet 4 mg PO Q6HPRN PRN severe pain #10 tabs 09/05/23
rivaroxaban 2.5 mg tablet (Xarelto) 2.5 mg PO BID #90 tabs 09/05/23
Home Medication Changes
ADDED:
docusate sodium 100 mg capsule 100 mg PO BID #30 caps 09/04/23
glipizide 5 mg tablet 5 mg PO BID@0800,1700 #60 tabs 09/05/23
hydromorphone 4 mg tablet 4 mg PO Q6HPRN PRN severe pain #10 tabs 09/05/23
rivaroxaban 2.5 mg tablet (Xarelto) 2.5 mg PO BID #90 tabs 09/05/23
Pending Results: No
--- NOTE | 2023-09-06 07:31 | PN.DE.MGMTRT ---
Insulin Management
- -
09/05/2023: Diabetes Management Consult
63 year old male POD 4 Left common femoral endarterectomy with patch angioplasty using bovine pericardium
Left common femoral artery to below-knee popliteal artery bypass with 6 mm ring reinforced Propaten graft.
PMH includes: CAD s/p [place], s/p PTCA SHERIN 2012, HTN, HLD, PAD, R/L SFA, Left iliac stent 2013, fem to popliteal bypass 2019, B/L CA disease
L ureter lithotripsy and stent 2015, Current Smoker and T2DM.
A1C 8.0%, Current Diabetes regimen includes: Metformin 1000 mg BID and Jardiance 10 mg daily. States he has a working glucose meter at home.
Glucose has been elevated FBG 191-227, discussed adding basal insulin to current regimen, pt declined stating that he will not be able to afford it and that he would not take insulin because he believes he has made several changes and his glucose
numbers have been well managed.
His premeal 182-286. Will start Glipizide 5mg BID, 1st dose @ 1800 for optimal glucose control. Add Low Corrective insulin with meals.
Pt was amenable to Glipizide 5mg BID in addition to Metformin 1000mg BID and Jardiance 10mg daily. Cont same at discharge.
Discussed above plan with primary team via TT
09/06/2023 Diabetes management Follow up
Patient home regimen resumed yesterday pre dinner. Glucose improved to 82 @ HS, fasting this AM 151. Patient for discharge, will make no change to current regimen.
Diabetes History
- -
Type of Diabetes: 2
Pre-Admission Diabetes Regimen
Lab Results
Hemoglobin A1c Cancelled 09/05/23 10:49
Insulin Pump Settings
IP Diabetes Regimen
09/05/23 09/05/23 09/05/23
07:30 11:27 16:16
POC Glucose 247 H 209 H 184 H
09/05/23 09/06/23
21:38 07:10
POC Glucose 82 151 H
Patient Education
--- NOTE | 2023-09-06 07:37 | W.DCSUMMARY ---
Discharge Summary
Discharge Data
Date of Admission: 09/01/23
Date of Discharge: 09/06/23
-
Pending Results: No
Hospital Course
Attending: Esvin Merritt
Consultants: Pulmonary medicine, diabetic management
Allergies: lisinopril, varencline
Procedure with date: 09/01/2023: Left common femoral endarterectomy with patch angioplasty using bovine pericardium, left common femoral artery to below-knee popliteal artery bypass with 6 mm ringed propatent graft
History of present illness: The patient is an 63-year-old male with multiple medical conditions including: Coronary artery disease, diabetes, hypertension, hyperlipidemia, peripheral artery disease, myocardial infarction, tobacco abuse, carotid
disease, hypercholesterolemia, sciatica, back pain,. Patient presented on 09/01/2023 for scheduled procedure with Dr. Merritt. Patient presented at baseline health with no reports of recent illness or trauma.
Hospital Course: Briefly, the patient underwent scheduled procedure without complications, and recovered in PACU. Following recovery phase one and two patient was transferred to intensive care unit per protocol for continued hemodynamic monitoring.
Bean Picker Machine Operator consulted to aid in medical management from a critical care perspective. POD #1 (09/01/2023) Patient neurologically intact, patient doing well overall. Surgical sites clean, dry, and intact with suture line well approximated and soft. No
evidence of hematoma. Arterial line and IV fluids discontinued. Out of bed to chair and ambulate after lunch. POD #2 (09/03/23) DC planning, home health consult, work with PT and OT. POD #3 (09/04/23) continuing to encourage ambulation as tolerated,
pain control, case management consult. POD 4 (09/05/23) patient wishes to work with PT today prior to leaving. Diabetic management consulted. Made alterations to p.o. home medications. POD 5 (09/06/2023) patient able to ambulate without difficulty or
incident. Patient stable for discharge to home.
Prescriptions and follow up appointment are included in the DC summary body shop manager note. All instructions were given to the patient in both written and verbal form and the patient expressed understanding.
Discharge Plan
-
Patient Disposition: Home with Home Care
Discharge Diagnosis/Procedures: Peripheral artery disease. Left common femoral endarterectomy with patch angioplasty using bovine pericardium and left common femoral artery to below-knee popliteal artery bypass with graft
Condition: Good
Diet: As tolerated and Diabetic, Carb Controlled
Activity: No strenuous activity
Driving Restrictions: No driving for 1 week
Bathing Restrictions: OK to Shower
Activity Restrictions/Additional Instructions:
The white MELECIO dressing on the groin site can be peeled off and removed on 09/08, you may throw the dressing and battery pack away.
Until removal you may disconnect at hub closest to your body to shower and re-connect after shower.
The battery pack will vibrate and blink different colors, this is normal.
If the dressing becomes saturated or peels away before removal date that is ok, you may remove it at that time.
After removal if you would like to cover the site with gauze you may, change this daily or when wet. You also may leave open to air.
DO NOT SOAK incision. Showering is fine but no standing water(tub/pool).
Keep this incision as dry as you can when not showering.
We recommend taking swhn-vqt-oesnokk stool softener, brand name is Colace and generic is docusate sodium, to help with possible narcotic induced constipation.
Stand Alone Forms: DC Instr - Vascular OR
Referrals:
Helen Ramires PA-C [Specified Professional Personl] - 09/18/23 10:00 am
Tejas Tello DO [Family Provider] -
Adam Reid MD [Active] - in two to four weeks (COPD suspected-needs PFTs, potential yearly low-dose lung cancer screening CTs, etc.)
Prescriptions:
New
docusate sodium 100 mg Capsule
100 mg PO BID Qty: 30 0RF
hydromorphone 4 mg Tablet
4 mg PO Q6HPRN PRN (Reason: severe pain) Qty: 10 0RF
Xarelto 2.5 mg Tablet
2.5 mg PO BID Qty: 90 0RF
glipizide 5 mg Tablet
5 mg PO BID@0800,1700 Qty: 60 0RF
Continued
aspirin 81 MG tablet,delayed release (DR/EC)
81 mg PO DAILY
nitroglycerin 0.4 MG tablet, sublingual
0.4 mg sublingual [id number] PRN (Reason: chest pain) Qty: 60 2RF
amlodipine 5 MG tablet
5 mg PO DAILY
salicylic acid [Keralyt Rx] 40 GM gel
40 gm topical PRN PRN (Reason: skin irritation)
metformin 500 MG tablet
1,000 mg PO BID AT 0800,1700 0RF
Hold Instructions: Resume on 07/16/23.
metoprolol succinate 50 MG tablet extended release 24 hr
50 mg PO QPM 0RF
multivitamin Tablet
1 tab PO DAILY
atorvastatin 40 mg Tablet
40 mg PO QPM
Jardiance 10 mg Tablet
10 mg PO QPM
isosorbide mononitrate 60 mg Tablet Extended Release 24 Hr
60 mg PO BID
Discontinued
clopidogrel 75 MG tablet
75 mg PO DAILY
Discharge Orders:
Discharge Patient (As Directed); Ordered 09/06/23
Ordered By: Penelope Blanton
[2023-09-06] MEDS: NOVOLOG FLEXPEN-LOW RESISTANCE 1 UNITS SC (08:20)
[2023-09-06] MEDS: THERAGRAN 1 TABLET PO (08:21)
[2023-09-06] MEDS: NORVASC 5 MG PO (08:21)
[2023-09-06] MEDS: XARELTO 2.5 MG PO (08:21)
[2023-09-06] MEDS: ASPIR LOW (ENTERIC COATED) 81 MG PO (08:21)
[2023-09-06] MEDS: GLUCOPHAGE 1000 MG PO (08:21)
[2023-09-06] MEDS: GLUCOTROL 5 MG PO (08:21)
[2023-09-06] MEDS: MUCINEX 600 MG PO (08:21)
[2023-09-06] MEDS: IMDUR (EXTENDED RELEASE) 60 MG PO (08:21)
[2023-09-06] MEDS: COLACE PO (08:22)
[2023-09-06] MEDS: HEPARIN 5000 UNITS SC (08:22)
[2023-09-06] MEDS: NICODERM TRANSDERMAL 21 MG TRANSDERM (08:23)
--- NOTE | 2023-09-06 09:20 | CM ---
Chart reviewed. Spoke with pt at bedside
Pt referred to [facility] for home needs
Has ride at d/c
Plan - Discharge to home with home services - [facility]
--- NOTE | 2023-09-06 10:04 | W.PN.UPDATE ---
Update Note
Progress Note Update
CDI:
In response to CDI:
Clinical Indicators:
Patient admitted with critical limb ischemia; s/p Left common femoral endarterectomy with patch angioplasty 09/01.
Anesthesia Report:� IVF 1100 ml� � EBL 250 ml
IVF NSS @100 ml/hr post op
Hgb/Hct trend:
� 09/01/23 09/03/23 09/04/23
� 17:58 05:21 03:44
Hgb �� � ���14.5 12.3 L 11.8 L
Hct 42.4 �� � 36.4 L �� � 34.7 L
Based on the above, could you clarify in the progress notes, the appropriate diagnosis, if significant, that supports the above lab abnormalities and additional evaluation, monitoring and/or treatment rendered:
Anemia, multifactorial due to acute blood loss and hemodilution, monitored by repeat blood work that demonstrated stability
Clinical Indicators:
Patient admitted with critical limb ischemia; s/p Left common femoral endarterectomy with patch angioplasty 09/01.
IVF Normosol, NSS given.
Sodium levels:
� 09/02/23 09/03/23 09/04/23
� 04:31 05:21 03:44
Sodium �134 L �133 L �133 L
Based on the above, could you clarify in the progress notes, the appropriate diagnosis, if significant, that supports the above abnormalities and additional evaluation, monitoring and/or treatment rendered:
Abnormal lab values, clinically insignificant, repeat BMP on 09/05 demonstrated within normal limits sodium level
== END 2023-09-06 10:10 | disposition home health service (06) | DRG 253 ==
LOC: 2 SOUTH 09:37
PROVIDERS: Nurse Practitioner Acute Care; ADMITTING PHYSICIAN Surgery Vascular Surgery; FAMILY PHYSICIAN Family Medicine; OTHER PHYSICIAN Internal Medicine Pulmonary Disease
PROC: 04CN0ZZ Extirpation of Matter from Left Popliteal Artery, Open Approach (ICD-10-PCS; 2023-09-01)
PROC: 04CL0ZZ Extirpation of Matter from Left Femoral Artery, Open Approach (ICD-10-PCS; 2023-09-01)
PROC: 04UN0KZ Supplement Left Popliteal Artery with Nonautologous Tissue Substitute, Open Approach (ICD-10-PCS; 2023-09-01)
DX: I70.222 Atherosclerosis of native arteries of extremities with rest pain, left leg (principal); D62 Acute posthemorrhagic anemia; E11.51 Type 2 diabetes mellitus with diabetic peripheral angiopathy without gangrene; F17.200 Nicotine dependence, unspecified, uncomplicated; I25.10 Atherosclerotic heart disease of native coronary artery without angina pectoris; E78.00 Pure hypercholesterolemia, unspecified; I10 Essential (primary) hypertension; M54.30 Sciatica, unspecified side; Z79.01 Long term (current) use of anticoagulants; I77.9 Disorder of arteries and arterioles, unspecified; S91.302A Unspecified open wound, left foot, initial encounter
CPT/HCPCS: 35656; 35681; 36415; 71046; 80048; 82962; 83036; 85025; 85027; 85610; 85730; 86850; 86900; 86901; 87070; 97116; 97163; 97166; 97530; 97535; 99406; C1768

== ENCOUNTER → 2023-10-03 09:56 | Outpatient (REF) | payer BC, SELFPAY | LOC: RAD 09:56 | PROVIDERS: ATTENDING PHYSICIAN Registered Nurse; FAMILY PHYSICIAN Family Medicine | DX: I73.9 Peripheral vascular disease, unspecified (principal) | CPT/HCPCS: 93922; 93925 ==

== ENCOUNTER → 2024-01-02 14:04 | Outpatient (REF) | payer BC, SELFPAY | LOC: RAD 14:04 | PROVIDERS: ATTENDING PHYSICIAN Surgery Vascular Surgery; FAMILY PHYSICIAN Family Medicine | DX: I73.9 Peripheral vascular disease, unspecified (principal) | CPT/HCPCS: 93922; 93925 ==

== ENCOUNTER 2024-05-18 19:39 | Inpatient (IN) | payer BC, SELFPAY ==
[2024-05-18] VITALS (31 sets, daily range): BP systolic 65–142; BP diastolic 55–73; BMI 21.8; BMI 21.2
[2024-05-18 13:34] LABS: % Basophils 0.5 % (0-2); % Eosinophils 0.2 % (0-6); % Immature Granulocytes 0.5 % (0-0.5); % Lymphocytes 10.2 % (20.5-51.1); % Neutrophils 81.6 % (42.2-75.2); Absolute Basophils 0.1 10^3/uL (0-0.2); Absolute Immature Granulocytes 0.1 10^3/uL (0-0.05); Absolute Monocytes 1.4 10^3/uL (0.1-0.6); Absolute Neutrophils 16.2 10^3/uL (1.4-6.5); Hematocrit 44.2 % (39.0-52.0); Hemoglobin 15.5 g/dL (13.0-18.0); Mean Corp Hgb Conc. 35.1 g/dL (33.0-37.0); Mean Corpuscular Hgb 31.9 pg (27.0-31.0); Mean Corpuscular Volume 90.9 fL (80.0-94.0); Mean Platelet Volume 8.9 fL (7.4-10.4); Nucleated Red Blood Cells % 0 % (-); Platelet Count 229 10^3/uL (130-400); Red Blood Cell Count 4.86 10^6/uL (4.70-6.10); Red Cell Dist. Width 13.9 % (11.5-14.5); White Blood Cell Count 19.9 10^3/uL (4.8-10.8)
[2024-05-18 13:46] LABS: ALT (SGPT) 22 U/L (0-50); AST (SGOT) 23 U/L (17-59); Albumin 4.2 g/dl (3.5-5.0); Alkaline Phosphatase 49 U/L (38-126); Blood Urea Nitrogen 25 mg/dl (9-20); Calcium 9.6 mg/dl (8.4-10.2); Carbon Dioxide 28 mmol/L (22-30); Chloride 99 mmol/L (98-107); Glucose 140 mg/dl (70-99); Lipase 23 U/L (23-300); Potassium 4.3 mmol/L (3.5-5.1); Sodium 136 mmol/L (135-145); Total Bilirubin 0.7 mg/dl (0.2-1.3); Total Protein 6.6 g/dl (6.3-8.2); eGFR > 60.00
--- NOTE | 2024-05-18 15:06 | ED.GENMED ---
History of Present Illness
<Rosario Ivory PA-C - Last Filed: 05/18/24 17:59>
General
Chief Complaint: Abdominal Pain
Source: patient
Time Seen by Provider: 05/18/24 14:55
History of Present Illness
History of Present Illness:
64yoM with a history of peripheral artery disease s/p R fem-pop bypass, coronary artery disease s/p PCI, chronic mesenteric ischemia, hypertension, hyperlipidemia, type 2 diabetes, and COPD presenting for evaluation of abdominal pain. Patient
initially had nausea and vomiting 2 days ago. He developed lower abdominal pain yesterday which has been gradually worsening. Pain is now severe and is worse with any sort of movement. Pain is also worse with eating and he reports poor p.o.
intake due to his symptoms. He denies any history of similar pains in the past. He reports a subjective fever yesterday but did not check his temperature. Last bowel movement was 2 days ago. He denies any dysuria, chest pain, shortness of
breath. Patient was seen by his PCP today and sent to the ED for evaluation. No previous abdominal surgeries.
Past History
<Rosario Ivory PA-C - Last Filed: 05/18/24 17:59>
Past History
ED Past Medical History: CAD, HTN, Hypercholesterolemia, NIDDM, Other (kidney stone) and Other (PVD/PAD)
ED Past Surgical History: Cardiac (Catherization) and Tonsilectomy
Social History
Tobacco: Smoker
Alcohol: None
Drug: None
Personal: Single
Living: with family
Employment: Employed
Family History
Family History: CAD
Phy Exam
<Rosario Ivory PA-C - Last Filed: 05/18/24 17:59>
Physical Exam
Physical Exam:
Appears uncomfortable, clutching abdomen, non-toxic
General Physical Exam
General Presentation: mild distress
General age: appears stated age
General Skin: warm and dry
ENT Exam
ENT Exam: normocephalic
Cardiovascular Exam
Cardiovascular Exam: regular rate/rhythm
Pulmonary Exam
Pulmonary Exam: lungs clear, no respiratory distress, no rales and no crackles
Gastrointestinal Exam
Gastrointestinal Exam: guarding, rebound, tender and other (Abdomen mildly firm to palpation with voluntary guarding and rebound tenderness. Pain seems to be worse in the RLQ. )
[place] Coma Scale
Eye Opening: Spontaneous
Verbal Response: Oriented
Motor Response: Obeys Commands
GCS Total Score: 15
Skin Exam
Skin Exam: normal color and warm/dry
Psychiatric Exam
Psychiatric Exam: normal mood/affect
<Berto Phipps DO - Last Filed: 05/18/24 18:09>
[place] Coma Scale
GCS Total Score: 15
Course
<Rosario Ivory PA-C - Last Filed: 05/18/24 17:59>
Orders/Labs/Results
Orders:
Orders
05/18/24 13:11
Urine Culture Reflexed from UA [Urinalysis Reflex To Culture] Urgent
Date Specimen was Collected: 05/18/24
Time Specimen was Collected: 13:11
05/18/24 13:25
Complete Blood Count/With Diff Urgent
Comprehensive Metabolic Panel Urgent
Lipase Urgent
05/18/24 15:05
CT Abd/pelvis W Iv Cont Urgent
Comment:
Reason For Exam: Lower abd pain
0.9% Sodium Chloride 1000 ml [Nss] 1,000 ml IV BOLUS
HYDROmorphone [Dilaudid] 0.5 mg IV NOW STA
05/18/24 15:52
Lactate Level [Lactic Acid] Urgent
05/18/24 16:12
0.9% Sodium Chloride 1000 ml [Nss] 1,000 ml IV BOLUS
05/18/24 16:29
Piperacillin/Tazo 4.5 Gram [Zosyn] 4.5 gram in 100 ml IV NOW
Abnormal Lab Results
05/18/24
13:25
WBC 19.9 H 10^3/uL
(4.8-10.8)
MCH 31.9 H pg
(27.0-31.0)
Abs Immat Gran (auto) 0.1 H 10^3/uL
(0-0.05)
Absolute Neuts (auto) 16.2 H 10^3/uL
(1.4-6.5)
Absolute Monos (auto) 1.4 H 10^3/uL
(0.1-0.6)
Neutrophils % 81.6 H %
(42.2-75.2)
Lymphocytes % 10.2 L %
(20.5-51.1)
BUN 25 H mg/dl
(9-20)
Glucose 140 H mg/dl
(70-99)
05/18/24 13:25
05/18/24 13:25
Vital Signs
Initial and Last Documented VS:
Initial Vital Signs
Temp Pulse Resp BP Pulse Ox
97.7 F 109 20 129/71 96
05/18/24 12:14 05/18/24 12:14 05/18/24 12:14 05/18/24 12:14 05/18/24 12:14
Last Documented Vital Signs
Temp Pulse Resp BP Pulse Ox
97.6 F 79 18 92/66 95
05/18/24 15:11 05/18/24 18:00 05/18/24 15:11 05/18/24 18:00 05/18/24 18:00
Samreenlt;Berto Phipps, DO - Last Filed: 05/18/24 18:09>
Orders/Labs/Results
Orders:
Orders
05/18/24 13:11
Urine Culture Reflexed from UA [Urinalysis Reflex To Culture] Urgent
Date Specimen was Collected: 05/18/24
Time Specimen was Collected: 13:11
05/18/24 13:25
Complete Blood Count/With Diff Urgent
Comprehensive Metabolic Panel Urgent
Lipase Urgent
05/18/24 15:05
CT Abd/pelvis W Iv Cont Urgent
Comment:
Reason For Exam: Lower abd pain
0.9% Sodium Chloride 1000 ml [Nss] 1,000 ml IV BOLUS
HYDROmorphone [Dilaudid] 0.5 mg IV NOW STA
05/18/24 15:52
Lactate Level [Lactic Acid] Urgent
05/18/24 16:12
0.9% Sodium Chloride 1000 ml [Nss] 1,000 ml IV BOLUS
05/18/24 16:29
Piperacillin/Tazo 4.5 Gram [Zosyn] 4.5 gram in 100 ml IV NOW
Abnormal Lab Results
05/18/24
13:25
WBC 19.9 H 10^3/uL
(4.8-10.8)
MCH 31.9 H pg
(27.0-31.0)
Abs Immat Gran (auto) 0.1 H 10^3/uL
(0-0.05)
Absolute Neuts (auto) 16.2 H 10^3/uL
(1.4-6.5)
Absolute Monos (auto) 1.4 H 10^3/uL
(0.1-0.6)
Neutrophils % 81.6 H %
(42.2-75.2)
Lymphocytes % 10.2 L %
(20.5-51.1)
BUN 25 H mg/dl
(9-20)
Glucose 140 H mg/dl
(70-99)
05/18/24 13:25
05/18/24 13:25
Vital Signs
Initial and Last Documented VS:
Initial Vital Signs
Temp Pulse Resp BP Pulse Ox
97.7 F 109 20 129/71 96
05/18/24 12:14 05/18/24 12:14 05/18/24 12:14 05/18/24 12:14 05/18/24 12:14
Last Documented Vital Signs
Temp Pulse Resp BP Pulse Ox
97.6 F 79 18 92/66 95
05/18/24 15:11 05/18/24 18:00 05/18/24 15:11 05/18/24 18:00 05/18/24 18:00
<Rosario Ivory PA-C - Last Filed: 05/18/24 17:59>
MDM/Problems Addressed
Differential Diagnosis Includes:
64yoM here with abdominal pain since yesterday. Worse with movement. Associated with n/v. Significant history of PAD and CAD. VSS. Patient appears uncomfortable on exam but is non-toxic. Voluntary guarding and rebound tenderness present on abdominal
exam. Differential diagnosis includes but is not limited to: appendicitis, diverticulitis, perforated viscous, mesenteric ischemia
Initial ED plan: Abdominal labs obtained in triage. WBC 19.9 with a left shift. Remainder of labs unremarkable. Will check lactate and CT abdomen. IV Dilaudid and fluid bolus for symptoms.
<Rosario Ivory PA-C - Last Filed: 05/18/24 17:59>
*Critical Care Note
Total Time (30-74mins, 75-104mins- exclusive of procedures): 35
<Rosario Ivory PA-C - Last Filed: 05/18/24 17:59>
Update Note
Update Note:
Lactate WNL. During ED stay, patient became acutely hypotensive with SBP in the 60-80s. A second IV was obtained and a second L of fluid was ordered. IV Zosyn was ordered prior to imaging due to acuity. CT abdomen shows 'There is an approximately
6.5 cm in length area of small bowel wall thickening in the right mid abdomen, proximal to which fluid-filled loops of small bowel are distended with much is 3 cm in pattern suggesting small bowel enteritis with low-grade partial small bowel
obstruction.' Patient admitted to the hospitalist service for further management. General surgery also notified of patient who recommends NG tube if patient is nauseous. No current nausea/vomiting so will hold off on NG tube for now.
ED Attending Note
<Rosario Ivory PA-C - Last Filed: 05/18/24 17:59>
-
Portions of this chart may have been created with voice recognition software.� Occasional wrong word or��sound alike� substitutions may have occurred due to the inherent limitations of voice recognition software.
<Berto Phipps DO - Last Filed: 05/18/24 18:09>
ED Attending Note
Patient seen and examined by attending physician: Yes
I performed a history and physical exam of patient and discussed management with resident, I reviewed resident's note and agree with documented findings and plan of care.: Yes
ED Attending Note:
I reviewed and agree with history and plan by Rosario Ivory. My exam revealed 64-year-old male with right lower quadrant abdominal tenderness, mild hypotension. IV fluids given, with some improvement of blood pressure. Indicating partial small
bowel obstruction and enteritis. IV Zosyn given. Surgery and hospitalist notified.
Discharge Plan
Departure
Patient Disposition: Admit
Date of Disposition: 05/18/24
Time of Disposition: 17:40
Presentation/result/management discussed w/ accepting MD/DO: Hospitalist
Discharge Problem:
Abdominal pain, Partial small bowel obstruction, Hypotension
Prescriptions:
No Action
aspirin 81 MG tablet,delayed release (DR/EC)
81 mg PO DAILY
amlodipine 5 MG tablet
5 mg PO DAILY
metoprolol succinate 50 MG tablet extended release 24 hr
50 mg PO QPM 0RF
multivitamin Tablet
1 tab PO DAILY
atorvastatin 40 mg Tablet
40 mg PO QPM
Jardiance 10 mg Tablet
10 mg PO QPM
isosorbide mononitrate 60 mg Tablet Extended Release 24 Hr
60 mg PO BID
glipizide 5 mg Tablet
5 mg PO BID@0800,1700 Qty: 60 0RF
clopidogrel 75 mg tablet
75 mg PO DAILY
metformin 500 MG tablet
1,000 mg PO BID@0800,1700
Referrals:
Tejas Tello, [Family Provider] -
Interventions
Interventions:
*Risk Screen - Suicide Last Done: 05/18/24 15:45
*General Assessment Last Done: 05/18/24 12:14
*Neglect/Abuse Screening Last Done: 05/18/24 15:45
ED- Fall Risk Assessment Last Done: 05/18/24 15:45
*ED COVID-19 Vaccine History Last Done: 05/18/24 15:45
ZG-Rcmful-[id number] Assessment Last Done: 05/18/24 15:45
Discharge Date and Time
Print Language: MALTESE
[2024-05-18] MEDS: NSS 1000 IV ×3 (15:32→19:33)
[2024-05-18] MEDS: DILAUDID 0.5 MG IV (15:32)
[2024-05-18] MEDS: ZOSYN 100 IV (17:09)
--- NOTE | 2024-05-18 17:46 | HPS.HSE ---
Family Physician
-
Family Physician: Tejas Tello
Chief Complaint
-
Abd pain
History of Present Illness
64M PAD b/l lower ext bypass CAD HTN HLD DM COPD p/w progressive abd pain for two days right sided. Initially symptoms started with nausea and one episode of vomiting. Since then patient has had reduced oral intake due to pain. Last bowel
movement was also two days ago. Denies history of abd surgeries. Patient was notably hypotensive during ED evaluation and received 2L with subsequent improvement noted though pressures remain borderline low systolic high 80s to 90s, MAP
consistently >65. Intermittently tachy to 100 with wbc 19.9 concerning for severe sepsis/shock. Otherwise afebrile, no significant lactic acidosis. Stable respiratory status on room air. CT abd/pelvis with IV contrast (no oral) concerning for
small bowel enteritis and partial bowel obstruction.
Medical History
Past Medical History
Past Medical History: Reports Other (as above)
Past Surgical History: Reports Other (as above)
Social History
Tobacco: Smoker
Alcohol: None
Drug: None
Personal: Single
Living: With Family
Employment: Employed
Family History
Family History: Not pertinent (reviewed)
Allergies / Home Medications
Allergies reflects when Allergies were last updated in [facility].
Home Medications with original date entered in [facility]
Allergy/Medication List:
Allergies
Allergy/AdvReac Type Severity Reaction Status Date / Time
lisinopril Allergy cough Verified 05/18/24 12:13
varenicline Allergy chest pain Verified 05/18/24 12:13
Home Medications
aspirin 81 mg tablet,delayed release 81 mg PO DAILY 05/13/13
amlodipine 5 mg tablet 5 mg PO DAILY 05/20/14
metoprolol succinate 50 mg tablet,extended release 24 hr 50 mg PO QPM 05/19/20
atorvastatin 40 mg tablet 40 mg PO QPM 07/11/23
empagliflozin 10 mg tablet (Jardiance) 10 mg PO QPM 07/11/23
multivitamin 1 tab PO DAILY 07/11/23
isosorbide mononitrate 60 mg tablet,extended release 24 hr 60 mg PO BID 08/24/23
glipizide 5 mg tablet 5 mg PO BID@0800,1700 #60 tabs 09/05/23
clopidogrel 75 mg tablet 75 mg PO DAILY 05/18/24
metformin 500 mg tablet 1,000 mg PO BID@0800,1700 05/18/24
Review of Systems
-
A 12 point ROS was completed and negative except as noted: Yes
Constitutional: Reports Other (as below)
Physical Exam
Vital Signs
Vital Signs
Temp Pulse Resp BP Pulse Ox
97.6 F 84 18 90/64 95
05/18/24 15:11 05/18/24 17:30 05/18/24 15:11 05/18/24 17:30 05/18/24 17:30
Physical Exam
General: Other (as below)
Laboratory Results
-
05/18/24 13:25
05/18/24 13:25
Laboratory Results
Lactic Acid 1.0 mmol/L (0.7-2.0) 05/18/24 15:52
Total Bilirubin 0.7 mg/dl (0.2-1.3) 05/18/24 13:25
AST 23 U/L (17-59) 05/18/24 13:25
ALT 22 U/L (0-50) 05/18/24 13:25
Alkaline Phosphatase 49 U/L (38-126) 05/18/24 13:25
Lipase 23 U/L (23-300) 05/18/24 13:25
Impression/Plan
-
ROS
General: Denies fever reports chills
Neuro: Denies seizure shaking loss of consciousness dizziness vertigo
Psych: denies depression hallucinations confusion manic episodes
Endocrine: Denies polyuria polydipsia polyphagia heat/cold intolerance
HEENT: Denies blindness visual disturbances epistaxis
Pulmonary: denies coughing hemoptysis sneezing sob dyspnea on exertion
Cardiovascular: denies chest pain palpitations leg swelling
Hematology: denies signs symptoms of anemia easy bruising/bleeding
Gastrointestinal: reports abd pain prior episode nausea vomiting a few days ago since resolved, no bowel movement flatus in 2 days
Genito-Urinary: denies retention incontinence dysuria
Musculoskeletal: denies joint pain weakness
Dermatology: denies rash laceration bruising
Physical Exam
General: No pallor, cyanosis, or jaundice.
HEENT: Throat clear. PERRLA Normocephalic atraumatic
NECK: Supple. No JVD Carotid Bruits
RESPIRATORY: Lungs clear to auscultation. No crackles wheezes stridor
CVS: S1, S2 normal. RRR. No murmur, rub or gallop.
ABDOMEN: Soft, right sided tenderness. + rebound tenderness. Decreased bowel sounds
EXTREMITIES: No peripheral cyanosis or edema.
BELT KNIFE FEEDER: AOx3
IMPRESSION:
64M PAD b/l lower ext bypass CAD HTN HLD DM COPD p/w progressive abd pain for two days right sided. Initially symptoms started with nausea and one episode of vomiting. Since then patient has had reduced oral intake due to pain. Last bowel
movement was also two days ago. Denies history of abd surgeries. Patient was notably hypotensive during ED evaluation and received 2L with subsequent improvement noted though pressures remain borderline low systolic high 80s to 90s, MAP
consistently >65. Intermittently tachy to 100 with wbc 19.9 concerning for severe sepsis/shock. Otherwise afebrile, no significant lactic acidosis. Stable respiratory status non-labored. CT abd/pelvis with IV contrast (no oral) concerning for
small bowel enteritis and partial bowel obstruction.
PLAN:
#Small bowel Enteritis w partial bowel obstruction
#Severe Sepsis/Shock (tachycardia and leukocytosis)
IMU admit
received 2L IVF in ED.
cont maintenance IVF NS 100 cc/h
Levophed ordered for goal MAP>65, has not required yet
Relatively strict NPO, given hx CAD PAD will cont at least ASA
Plavix held in case need for surgical intervention
Surgery eval requested
cont empiric zosyn
IV Tylenol prn pain/fever/headache
IV Toradol prn mod severe pain, IV dilaudid prn severe breakthrough pain
check blood cultures
prn compazine, recommend NGT decompression if patient develops nausea/vomiting
#CAD
#PAD s/p b/l LE Bypass
#HTN
#HLD
cont ASA and hold Plavix as above
hold home antihypertensives Amlodipine Metoprolol and Imdur
Hold oral statin NPO as above
#DM
Low dose sliding scale
follow up A1c in AM
hold oral diabetic medications NPO as above
dvt ppx Heparin
gi ppx protonix
Full Code
I spent a total of 80 minutes with the patient or on the floor. More than 50% of this time involved counseling and coordination of care.
[2024-05-18] MEDS: PROTONIX IV 40 MG IV (19:37)
[2024-05-18] MEDS: NSS (PRESERVATIVE FREE) 10 ML IV (19:37)
[2024-05-18 19:44] LABS: Urine Albumin Trace (Neg - Trace); Urine Bilirubin Negative (Negative); Urine Character Clear (Clear); Urine Color Yellow; Urine Glucose 3+ (Negative); Urine Ketone Negative (Negative); Urine Leukocyte Trace (Negative); Urine Nitrite Negative (Negative); Urine Occult Blood Negative (Negative); Urine Specific Gravity 1.015 (<1.030); Urine Urobilinogen Negative (Neg - 1+)
[2024-05-18 19:55] LABS: Urine Red Blood Cell None Seen /HPF (0-2)
--- NOTE | 2024-05-18 20:13 | W.PN.UPDATE ---
Update Note
Progress Note Update
BP persistently trending down.
Discussed case with surgery, will admit to ICU instead for closer monitoring and pressor support.
Levophed goal changed to SBP>90 instead of MAP >65
Patient remains alert oriented and conversant.
Brother Jermaine called and updated regarding patient's condition and plan for admission to ICU
[2024-05-18] MEDS: NICODERM TRANSDERMAL 21 MG TRANSDERM (20:25)
[2024-05-18] MEDS: TORADOL 15 MG IV (20:26)
[2024-05-18] MEDS: HEPARIN 5000 UNITS SC (20:26)
[2024-05-18] MEDS: LEVOPHED 250 IV (20:42)
[2024-05-18 20:59] LABS: Lactic Acid 0.8 mmol/L (0.7-2.0)
--- NOTE | 2024-05-18 23:31 | PTCARENOTE ---
Received pt from ED RN. Pt is on Levo, titrating for SBP >90. NS @100mls/hr. NSR on monitor, c/o lower abdominal pain with movement, hypoactive bowel sounds.
[2024-05-18 23:44] LABS: Glucose - Point of Care 462 mg/dl (70-99)
[2024-05-19] VITALS (42 sets, daily range): BP systolic 71–117; BP diastolic 34–79; BMI 21.2
[2024-05-19] MEDS: ZOSYN 50 IV ×5 (00:01→23:44)
[2024-05-19] MEDS: OFIRMEV 100 IV ×2 (00:01→06:05)
[2024-05-19 00:10] LABS: Blood Urea Nitrogen 22 mg/dl (9-20); Calcium 8.4 mg/dl (8.4-10.2); Carbon Dioxide 20 mmol/L (22-30); Chloride 104 mmol/L (98-107); Estimated Creatinine Clearance > 125 ml/min; Glucose 129 mg/dl (70-99); Potassium 4.2 mmol/L (3.5-5.1); Sodium 135 mmol/L (135-145); eGFR > 60.00
[2024-05-19] MEDS: NOVOLOG FLEXPEN-LOW RESISTANCE SC ×4 (00:18→20:24)
--- NOTE | 2024-05-19 01:00 | W.PN.SEPSIS ---
Sepsis
Vital Signs
Temp Pulse Resp BP Pulse Ox
97.7 F 65 18 83/48 95
05/19/24 00:38 05/19/24 00:30 05/19/24 00:30 05/19/24 00:30 05/19/24 00:15
Physical Exam
Physical Exam:
A focused exam was performed after fluid resuscitation.
Capillary Refill
Bilateral Upper Extremity:
Evelina Time: Less than 3 sec
Bilateral Lower Extremity:
Evelina Time: Less than 3 sec
Pulse Evaluation
Bilateral Radial:
Pulse Evaluation: Present
Bilateral Dorsalis Pedis:
Pulse Evaluation: Present
--- NOTE | 2024-05-19 01:35 | PTCARENOTE ---
ofirmev given for pain, pt sleeping. Levophed and IVF continued. BG was RR high for 0000 bg, stat bmp drawn bg was WNL. no insulin administered.
[2024-05-19 04:14] LABS: Hemoglobin 14.9 g/dL (13.0-18.0); Mean Corp Hgb Conc. 35.5 g/dL (33.0-37.0); Mean Corpuscular Hgb 32.2 pg (27.0-31.0); Mean Corpuscular Volume 90.7 fL (80.0-94.0); Mean Platelet Volume 9.4 fL (7.4-10.4); Platelet Count 219 10^3/uL (130-400); Red Blood Cell Count 4.63 10^6/uL (4.70-6.10); Red Cell Dist. Width 13.8 % (11.5-14.5); White Blood Cell Count 18.9 10^3/uL (4.8-10.8)
[2024-05-19 04:19] LABS: INR 1.12; PT 14.3 Sec (11.4-14.6)
[2024-05-19 04:20] LABS: APTT 29.2 Sec (23.4-35.0)
[2024-05-19 04:29] LABS: Blood Urea Nitrogen 20 mg/dl (9-20); Calcium 8.6 mg/dl (8.4-10.2); Carbon Dioxide 18 mmol/L (22-30); Chloride 106 mmol/L (98-107); Estimated Creatinine Clearance > 125 ml/min; Glucose 134 mg/dl (70-99); Magnesium 2.1 mg/dl (1.6-2.3); Phosphorus 2.6 mg/dl (2.5-4.5); Sodium 139 mmol/L (135-145); eGFR > 60.00
[2024-05-19] MEDS: NSS 1000 IV ×3 (04:39→20:27)
[2024-05-19 05:39] LABS: Glucose - Point of Care 129 mg/dl (70-99)
[2024-05-19] MEDS: LEVOPHED 250 IV (06:42)
--- NOTE | 2024-05-19 07:14 | W.PN.HOSP.TC ---
Today's Communication/Plan
-
cont abx
NPO except meds as per Surgery
follow up ECHO BNP
pressor support as per ICU
daily weight I/O
reduce rate IVF to 60 cc/h while NPO, discontinue entirely if oxygen requirement worsens, start IV lasix 40 mg daily if develops shortness of breath at rest
Assessment / Plan
Assessment / Plan
Physical Exam
General: No pallor, cyanosis, or jaundice.
HEENT: Throat clear. PERRLA Normocephalic atraumatic
NECK: Supple. No JVD Carotid Bruits
RESPIRATORY: Lungs clear to auscultation. No crackles wheezes stridor
CVS: S1, S2 normal. RRR. No murmur, rub or gallop.
ABDOMEN: Soft, right lower quadrant tenderness. + rebound tenderness. Decreased bowel sounds
EXTREMITIES: No peripheral cyanosis or edema.
RENDERER: AOx3
IMPRESSION:
64M PAD b/l lower ext bypass CAD HTN HLD DM COPD severe stenosis SMA chronic mesenteric ischemia p/w progressive abd pain for two days right sided. Initially symptoms started with nausea and one episode of vomiting. Since then patient has had
reduced oral intake due to pain. Last bowel movement was also two days ago. Denies history of abd surgeries. Patient was notably hypotensive during ED evaluation and received 2L with subsequent improvement noted though pressures remain borderline
low systolic high 80s to 90s, MAP consistently >65. Intermittently tachy to 100 with wbc 19.9 concerning for severe sepsis/shock. Otherwise afebrile, no significant lactic acidosis. Stable respiratory status non-labored. CT abd/pelvis with IV
contrast (no oral) concerning for small bowel enteritis and partial bowel obstruction.
PLAN:
#Small bowel Enteritis w partial bowel obstruction
#Severe Sepsis/Shock (tachycardia and leukocytosis)
Initially IMU admit switched to ICU due to dropping pressure despite fluid boluses, IVF support, requiring pressor support
received 2L IVF in ED.
cont maintenance IVF NS 100 cc/h
cont pressor support Levophed as per ICU
ASA Plavix held for surgical intervention, asa since resumed
Resume Plavix when cleared as per surgery
CT angio abd/pelvis appreciated
-severe wall thickening cecum concerning for acute infectious/inflammatory enterocolitis vs acute cecal diverticulitis vs acute ischemic enterocolitis vs (less likely) cecal adenocarcinoma
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
-acute interstitial cardiogenic pulm edema
Surgery eval appreciated emergent exploratory lap performed 05/19/24 necrotic portion cecum ischemic bowel resected
cont zosyn
IV Tylenol prn pain/fever/headache
IV Toradol prn mod severe pain, IV dilaudid prn severe breakthrough pain
follow blood cultures (drawn after 1st abx administration in ED)
prn compazine
#CAD
#PAD s/p b/l LE Bypass
#HTN
#HLD
cont ASA and hold Plavix as above (resume when cleared as per surgery)
cont hold home antihypertensives Amlodipine Metoprolol and Imdur
cont Hold oral statin
#Possibly Heart Failure new vs Iatrogenic Volume Overload
#Acute Hypoxia requiring 4L
#Acute Interstitial Cardiogenic Pulm Edema noted on CT angio as above
Respiratory status stable on 4L non-labored respiration
reduce IVF from 100 cc/h to 60 cc/h gentle hydration while NPO (discontinue entirely if oxygen requirement worsens, start IV lasix 40 mg daily if develops shortness breath)
hold off on Lasix for now given need for pressor support
Check ECHO BNP
#DM
Low dose sliding scale
A1c 6.6
hold oral diabetic medications NPO as above
#active smoker for years
smoking cessation counseled
Nicotine patch applied
dvt ppx Heparin
gi ppx protonix
Full Code
Total Critical Care Time__40___ minutes. I was immediately available to the patient and staff. I personally examined, reviewed labs, diagnostic images/reports, interpretations, treatment plans, discussed patient care with other providers, patient
and his brother Jermaine, entered orders as appropriate and documented the medical record.
Anticipated Discharge: > 48 hours
Subjective/Interval History
-
Date of Service: May 19, 2024
Seen and examined at bedside in no acute distress resting comfortably in bed. Reports improvement in RLQ abd pain though not resolved. Rebound tenderness persists.
Objective Data
-
Labs:
Laboratory Results
05/18/24 05/19/24
23:43 03:56
WBC 18.9 H
Hgb 14.9
Hct 42.0
Plt Count 219
PT 14.3
INR 1.12
APTT 29.2
Sodium 135 139
Potassium 4.2 4.0
Chloride 104 106
Carbon Dioxide 20 L 18 L
BUN 22 H 20
Creatinine 0.6 L 0.6 L
Glucose 129 H 134 H
Calcium 8.4 8.6
Vital Signs:
Vital Signs
Temp Pulse Resp BP Pulse Ox
97.7 F 83 18 96/74 97
05/19/24 03:38 05/19/24 06:30 05/19/24 06:30 05/19/24 06:30 05/19/24 06:30
I&O
05/18/24 05/19/24 05/20/24
06:59 06:59 06:59
Intake Total 1102.5 / 1102.5
Output Total 800 / 800
Balance 302.5 / 302.5
--- NOTE | 2024-05-19 07:47 | CON.INTV ---
Consultation
Consultation Request
Date/Time Consultation Requested: 05/19/2024-7 AM
Date/Time Consultation Performed: 05/19/2024-7:30 AM
Requesting Provider: Hospitalist
Performing Provider: Dr. Reid
Reason for Consultation: Sepsis/critical care management
Medical History
-
Chief Complaint: Sepsis
History of Present Illness:
64-year-old male smoker with underlying hypertension, hyperlipidemia, CAD, COPD presented with abdominal pain and small bowel partial obstruction as well as sepsis-community mental health worker consulted for sepsis/small bowel obstruction/critical care management
05/19/2024. Patient feels somewhat improved in the intensive care unit. Blood pressure is improved. He continues to have some mid to right lower quadrant abdominal pain but no nausea, vomiting, shortness of breath at rest, productive cough, chest
congestion, pleurisy, focal weakness or lower extremity edema.
Past Medical History
Past Medical History: None (Hypertension. Hyperlipidemia. CAD/stent. Diabetes. COPD. Tobacco addiction. PAD. Carotid stenosis. Sciatica.)
Past Surgical History: None (Left groin cyst removal. Iliac stent with multiple PAD surgeries-including below the knee popliteal artery bypass 2019. Tonsillectomy. Laser with lithotripsy and stenting 2015.)
Social History
Tobacco: Smoker ([id number])
Alcohol: None
Drug: None
Personal: Single
Living: With Family
Occupational Exposures: No known asbestos exposure
Environmental Exposures: no known tuberculosis exposure
Family History
Family History: Other (Father-HF, PAD, CAD. Mother-cancer unknown)
Allergies / Home Medications
Allergies
Allergy/AdvReac Type Severity Reaction Status Date / Time
lisinopril Allergy cough Verified 05/18/24 12:13
varenicline Allergy chest pain Verified 05/18/24 12:13
Home Medications
�Medication �Instructions �Recorded �Confirmed �Last Taken �Type
aspirin 81 mg tablet,delayed 81 mg PO DAILY 05/13/13 05/18/24 05/18/24 History
release
amlodipine 5 mg tablet 5 mg PO DAILY 05/20/14 05/18/24 05/18/24 History
metoprolol succinate 50 mg 50 mg PO QPM 05/19/20 05/18/24 05/17/24 Rx
tablet,extended release 24 hr
atorvastatin 40 mg tablet 40 mg PO QPM 07/11/23 05/18/24 05/17/24 History
empagliflozin 10 mg tablet 10 mg PO QPM 07/11/23 05/18/24 05/17/24 History
(Jardiance)
multivitamin 1 tab PO DAILY 07/11/23 05/18/24 05/18/24 History
isosorbide mononitrate 60 mg 60 mg PO BID 08/24/23 05/18/24 05/18/24 History
tablet,extended release 24 hr
glipizide 5 mg tablet 5 mg PO BID@0800,1700 #60 tabs 09/05/23 05/18/24 05/18/24 Rx
clopidogrel 75 mg tablet 75 mg PO DAILY 05/18/24 05/18/24 05/18/24 History
metformin 500 mg tablet 1,000 mg PO BID@0800,1700 05/18/24 05/18/24 05/18/24 History
Review of Systems
-
Unable to Obtain full review of systems at this time due to: Other (Per HPI)
Vitals / Labs / Diagnostic Testing
Vital Signs
Temp Pulse Resp BP Pulse Ox
98.0 F 83 18 96/74 97
05/19/24 07:00 05/19/24 06:30 05/19/24 06:30 05/19/24 06:30 05/19/24 06:30
Lab Data
05/19/24 03:56
05/19/24 03:56
Laboratory Results
05/19/24
03:56
PT 14.3
INR 1.12
APTT 29.2
Diagnostic Testing:
Physical Exam
-
Exam:
Well-nourished and well-developed in no apparent distress
HEENT-atraumatic, normocephalic
Neck-supple, no JVD, no bruit
Heart-regular rate and rhythm-no murmurs, rubs or gallops
Chest with diminished breath sounds, no wheezes or crackles
Abdomen-soft, right lower quadrant abdominal pain some guarding no rebound
Extremities-no cyanosis, clubbing, edema and good peripheral pulses
Integument-intact, no rashes, lesions or ecchymosis
Neurology-alert and oriented, nonfocal motor and sensory exam
Assessment
-
64-year-old male smoker with underlying hypertension, hyperlipidemia, CAD, COPD presented with abdominal pain and small bowel partial obstruction as well as sepsis-community mental health worker consulted for sepsis/small bowel obstruction/critical care management
05/19/2024.
Sepsis unresponsive to fluids requiring pressors
Partial small bowel obstruction
COPD without acute exacerbation
SMN-pedh-ivvytoy EF
Leukocytosis
Hyperglycemia-with mildly elevated A1c 6.6
Metabolic acidosis
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
Conditions present prior to admission:
Hypertension.
Hyperlipidemia.
CAD/stent.
Diabetes.
COPD.
Abnormal CT chest-left upper lobe nodule pleural-parenchymal scarring lingula 7 mm-07/2020
Tobacco addiction.
PAD.
Carotid stenosis.
Sciatica.
Left groin cyst removal. Iliac stent with multiple PAD surgeries-including below the knee popliteal artery bypass 2019. Tonsillectomy. Laser with lithotripsy and stenting 2015.
Plan
Admit patient to medical intensive care unit for persistent hypotension despite fluid resuscitation requiring pressors
Supplement oxygen as needed
High flow oxygen if needed
BiPAP if necessary
Intubate and mechanically ventilate if necessary
Aspiration precautions
Nebulizers if needed-currently not bronchospastic-has a history of COPD and ongoing tobacco addiction
Smoking cessation counseling
NicoDerm patch
Follow chest x-ray-mild interstitial edema
Check echocardiogram
Obtain cultures
Empiric antibiotics-Zosyn initiated
Consider Infectious disease consultation
Monitor leukocytosis
Fluid resuscitation with 30 mL/kg crystalloid-preferably lactated ringer-(less LINDSAY) with subsequent boluses as needed
Monitor lactate
Follow CVP if possible
Attempt noninvasive bedside tissue perfusion evaluation to see if fluid bolus responsive
Measure pulse pressure and stroke volume variation if patient on ventilator, passively breathing without arrhythmia and with temporary large tidal volume ventilation and if > 13% then likely fluid bolus responsive
If patient active then consider measuring bedside leg lift for 3 minutes and if cardiac output increases or if there is a rise of 2-4 on end-tidal CO2 then fluid bolus
If bedside ultrasound available then measure IVC diameter variation to evaluate for fluid bolus responsiveness
Begin pressors as needed for MAP goal of 65-Norepinephrine first, then Vasopressin and consider Angiotensin II if continues to be hypotensive
Consider methylene blue if available-specific inhibitor of induced nitric oxide synthase iNOS and its downstream enzyme soluble guanylate cyclase-noninferiority study shown to reduce time to vasopressor discontinuation, decreased ICU length of stay,
hospital stay but no change in mortality-published Critical Care 10/10/2022
Follow abdominal exam
CT abdomen summarized below
Surgical evaluation pending
Consider vascular surgical evaluation with mesenteric ischemia suspected
DVT prophylaxis-on subcu heparin
GI prophylaxis-on pantoprazole
Early nutrition if possible
Early mobilization/bedside range of motion
Patient last seen in Dr. Reid's office by BOOKER Ventura 06/16/2021 smoking cessation was advised, low-dose radiation CT lung cancer screening exam was recommended and prescription was provided-he subsequently canceled appointments
12/15/2021, 01/20/2022, 04/21/2022-advised periodic pulmonary [id number] will think about it 'I am okay'
Critical care statement: A total of 55 minutes of critical care time was provided for this patient today. This includes management of unstable vital signs, evaluation of the patient at bedside, reviewing the patient's pertinent medical records
including radiographs, microbiology, laboratory evaluations, and discussion with primary team, consultants, pharmacy, nutrition, physical therapy, case management, charge nurse, critical care nursing, and respiratory therapy.
Diagnostic data:
Chest x-ray 05/08/2020-NAD
Chest x-ray 08/28/2023-NAD, possible small tiny right pleural effusion
Chest x-ray 05/18/2024-mild interstitial pulmonary edema, upper lobe emphysema
CT [id number]- CT Chest- nodular pleural parenchymal scarring along the inferior medial lingula approximated 0.7 cm. Tree and bud nodules peripherally measuring up to 0.7 cm left lower lobe. Chronic pleural thickening along the posterior lung
base pleura approximated 0.9 cm unchanged from 2017.
CT abdomen 05/19/2024-severe calcified atherosclerotic plaques in the coronary arteries and descending thoracic aorta, minimal bilateral pleural effusions, severe wall thickening in the cecum, moderate diverticulosis, atherosclerotic plaques in the
abdominal aorta, iliac and femoral arteries, greater than 70% diameter stenosis in the superior mesenteric artery and 70% diameter stenosis celiac artery, moderate hepatic steatosis, acute interstitial cardiogenic edema
Spirometry 06/16/2021-FEV1 1.9-53%, FVC 4.09-86%, 8% BD response
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
Data Reviewed
-
PFT: Report reviewed by me
EKG: Report reviewed by me
Radiology: Image personally visualized and interpreted and Report reviewed by me
CT Scan: Report reviewed by me
Medical Tests (Nuc Med, Echo etc): Report reviewed by me
Labs: Labs reviewed by me
Old Records: Reviewed
Critical Care Time (in minutes): 55
[2024-05-19] MEDS: NICODERM TRANSDERMAL 21 MG TRANSDERM (09:05)
[2024-05-19] MEDS: PROTONIX IV 40 MG IV (09:05)
[2024-05-19] MEDS: HEPARIN SC ×2 (09:05→09:12)
[2024-05-19] MEDS: NSS (PRESERVATIVE FREE) 10 ML IV (09:06)
--- NOTE | 2024-05-19 09:10 | PTCARENOTE ---
Assumed care of pt at 0715 following shift report. Pt resting quietly in bed. Levophed gtt at 8 mcg/min, NSS @ 100ml/hr via peripheral IV sites. O2 @ 4l/min w/ Pox 94%. Pt denies SOB. Pt reports abdominal pain 'a little better than when I got here',
reports pain w/ palpation otherwise comfortable. Pt remains NPO- oral care completed. Pt sat at bedside to use urinal to void- denied dizziness w/ increased activity. Physical assessment completed as documented. Dr Mejia in room to evaluate pt-
Heparin and ASA held as ordered. Pt aware of plans for CTA of Abdomen this AM. Call yamilet w/in pt reach and safe environment maintained.
[2024-05-19 09:49] LABS: Glycohemoglobin (HgbA1c) 6.6 % (4.0-5.6)
--- NOTE | 2024-05-19 10:37 | PTCARENOTE ---
Pt's brother here to visit- updated on pt's present condition/plan of care and questions answered. Pt transported w/ this RN in attendance for CTA of Abdomen and returned to room. No changes from previous assessment findings or new complaints
received.
--- NOTE | 2024-05-19 12:02 | PTCARENOTE ---
Dr Mejia in room to talk with pt about results of CTA of Abdomen and recommendation of going to OR today. Griselda Galvez (provider high man) notified of message from Blood bank that currently no platelets available in house- blood bank stated that they
will request STAT from [facility] with >/= 2.5hrs until platelets available in house.
--- NOTE | 2024-05-19 12:09 | CON.GS ---
Consultation
-
Reason for Consultation: abdominal pain
Medical History
-
Chief Complaint: abdominal pain
History of Present Illness:
64 yo male with a h/o PAD wtih multiple grafts/angioplasties with vascular surgery, NIDDM, COPD, smoking, HTN, CAD who presents with acute abdominal pain for 2 days with nausea and vomiting at onset of symptoms. He has eaten very little since that
time and notes worsening pain and poor appetite. He has been unable to pass a stool for the past few days as well. He was noted to be hypotensive in the ED and was started on IV pressors and admitted to the ICU. On exam, he is diffusely tender with
light palpation with guarding. He denies fever or chills.
Past Medical History
Past Medical History: CAD, COPD, HTN, Hypercholesterolemia and NIDDM
Past Surgical History: Other (Left common femoral endarterectomy with patch angio 08/2023, left and right grafts/angioplasty: multiple 2022)
Social History
Tobacco: Smoker
Alcohol: None
Personal: Single
Living: With Family
Employment: Employed
Family History
Family History: Reviewed & Not Pertinent
Allergies / Home Medications
Allergy/AdvReac Type Severity Reaction Status Date / Time
lisinopril Allergy cough Verified 05/18/24 12:13
varenicline Allergy chest pain Verified 05/18/24 12:13
�Medication �Instructions �Recorded �Confirmed �Type
aspirin 81 mg tablet,delayed 81 mg PO DAILY Blood Clot 05/13/13 05/18/24 History
release Prevention/Tx
amlodipine 5 mg tablet 5 mg PO DAILY Blood Pressure 05/20/14 05/18/24 History
metoprolol succinate 50 mg 50 mg PO QPM 05/19/20 05/18/24 Rx
tablet,extended release 24 hr
atorvastatin 40 mg tablet 40 mg PO QPM High Cholesterol 07/11/23 05/18/24 History
empagliflozin 10 mg tablet 10 mg PO QPM Diabetes 07/11/23 05/18/24 History
(Jardiance)
multivitamin 1 tab PO DAILY Supplement 07/11/23 05/18/24 History
isosorbide mononitrate 60 mg 60 mg PO BID Heart 08/24/23 05/18/24 History
tablet,extended release 24 hr Disease/Condition
glipizide 5 mg tablet 5 mg PO BID@0800,1700 #60 tabs 09/05/23 05/18/24 Rx
clopidogrel 75 mg tablet 75 mg PO DAILY Blood Clot 05/18/24 05/18/24 History
Prevention/Tx
metformin 500 mg tablet 1,000 mg PO BID@0800,1700 Diabetes 05/18/24 05/18/24 History
Review of Systems
-
History Source: Patient and Family
All other systems: Negative unless noted
A 10 point review of systems was completed, and was negative except as per HPI.
Physical Exam
Vital Signs
Temp Pulse Resp BP Pulse Ox
97.1 F 67 18 100/69 95
05/19/24 11:00 05/19/24 11:00 05/19/24 11:00 05/19/24 11:00 05/19/24 10:30
05/18/24 05/19/24 05/20/24
06:59 06:59 06:59
Actual Weight 71 kg
Body Mass Index (BMI) 21.2
Lab Results
05/19/24 03:56
05/19/24 03:56
WBC 18.9 10^3/uL (4.8-10.8) H 05/19/24 03:56
Hgb 14.9 g/dL (13.0-18.0) 05/19/24 03:56
Hct 42.0 % (39.0-52.0) 05/19/24 03:56
Plt Count 219 10^3/uL (130-400) 05/19/24 03:56
Abs Immat Gran (auto) 0.1 10^3/uL (0-0.05) H 05/18/24 13:25
Neutrophils % 81.6 % (42.2-75.2) H 05/18/24 13:25
Physical Exam
General: Negative Comfortable
HEENT: Moist Mucous Membranes
Respiratory: Non Labored Respirations and Other (loose cough)
GI: Soft, Tender (diffusely) and Distended
Skin: Warm and Dry
Neuro: Awake, Alert and AO x 3
Psych: Calm
Data Reviewed
-
CT Scan: Image Personally Visualized and interpreted, Report Reviewed by me, Discussed with Physician, Discussed with Patient and Discussed with Family
Labs: Labs Reviewed by me, Discussed with Physician, Discussed with Patient and Discussed with Family
Old Records: Reviewed
Assessment / Plan
-
64 yo male with h/o smoking, dm, and PAD on ASA/Plavix with LD yesterday presenting with worsening abdominal pain with poor appetite and inability to pass BM's with onset of symptoms on 05/16. He is hypotensive on 8mcg of levophed. No fevers.
Leukocytosis present. Renal function ok. Lactic acid WNL last night. Worsening abdominal exam. CT imaging last night with thickening of the bowel near the cecum with worsening on CTA from today. Suspect ischemic bowel.
--NPO
--Hold plavix/asa
--Plan emergent OR, (see surgeons update noted)
--Type and cross for platelets and prbcs to have decision science analyst for OR given plavix use
--Continue IV zosyn given risk of translocation of bacteria
--Medical management as per primary team
--- NOTE | 2024-05-19 12:18 | W.PN.UPDATE ---
Update Note
Progress Note Update
Pt seen and evaluated at bedside. He goes back and forth saying he feels better and then says worse. He is on 8mcg of levophed and has been unable to wean. On exam he is non-toxic appearing, there is involuntary guarding, there is some rigidity,
there is tt light perc. This appears to be diffuse peritonitis. CTA this morning without discrete vascular problem but worsening small bowel and colonic inflammation and wall thickening. I have concern for ischemic bowel and strongly recommended
surgical exploration. He is on DAPT and I explained this would mean an increased risk of bleeding complications. We will have plts and PRBCs available intra-op. I explained there is risk of open abdomen and need for additional surgery in the short
term while maintaining a medically induced coma in the interim, as well as a risk of needing an ostomy which may or may not be temporary, need for bowel resection and anastomosis which could lead to leaks, disruption, or stricture. There is also a
risk of post-op infection, DVT, CVS and even on the OR table. Unfortunately I do not think he will improve without surgical intervention. His brother was conferenced in by phone and he and the patient both agreed to proceed with surgery.
Plan: emergent exploratory laparotomy
[2024-05-19 12:34] LABS: Glucose - Point of Care 148 mg/dl (70-99)
--- NOTE | 2024-05-19 13:15 | PTCARENOTE ---
Report given to 'Helen' in OR- made aware that per Blood Bank, there are currently no platelets available. Pt continues to rest quietly in bed, on phone w/ his brother. Emotional support provided to pt. No changes from previous assessment
findings noted.
--- NOTE | 2024-05-19 15:23 | W.IMMPOSTOP ---
Surgical Immed Post Op Note
-
Primary Surgeon: Dara
Assisting: Iris TSE
Pre-op Diagnosis: Ischemic bowel
Post-op Diagnosis: Necrotic cecum
Procedure Performed: Exploratory laparotomy, partial cecectomy
Anesthesia Type: GETA
Specimen / Cultures: Cecum
Estimated Blood Loss: 5cc
Complications: None immediate
Operative Findings: Lateral corner of cecum frankly necrotic and well demarcated; no other areas of ischemia or necrosis noted. Wedge resection with KOJO 80mm purple load, oversewn with 2-0 vicryl lembert sutures. No stool spillage, no purulence.
Appendix and TI unaffected.
[2024-05-19] MEDS: TORADOL 15 MG IV (15:34)
--- NOTE | 2024-05-19 16:00 | PTCARENOTE ---
Pt returned to room at 1530 as direct back from OR. Pt awake and Ox3, answering questions and following commands appropriately. Rt radial Chelle noted- transduced, leveled and zero-balanced; waveform wnl. Discrepancy noted between NIBP/cuff pressure
and Chelle pressure- per DAIRY SPECIALIST, this is unchanged from OR. Midline Aquacel dressing noted w/ shadow drainage marked. Abdomen soft, tender to palpation. Pt denies nausea and asking 'when can I have something to eat'. Present condition/plan of care
discussed w/ pt w/ pt verbalizing understanding. Pt given Toradol w/o adequate pain relief. Dilaudid 0.25mg given w/ pt noted to be asleep soon after administration. (see MAR for timing of dosages). Pt received on O2 at 4l/min via NC. Pox 92-95%.
Denies SOB. NS infusing @ 100ml/hr per order. Merritt patent (placed in OR) and draining clear yellow urine. Call woodard w/in pt reach and safe environment maintained.
[2024-05-19] MEDS: DILAUDID 0.25 MG IV ×2 (16:01→17:22)
[2024-05-19 18:37] LABS: Glucose - Point of Care 108 mg/dl (70-99)
[2024-05-19] MEDS: HEPARIN 5000 UNITS SC (19:28)
[2024-05-19] MEDS: DILAUDID 0.5 MG IV ×2 (19:28→23:44)
--- NOTE | 2024-05-19 19:30 | PTCARENOTE ---
Rec'd pt resting in bed, dilaudid 0.5 mg iv given for incis pain, cooperative, follows commands, SR, R rad suki w/ good wave form, flushes well, zeroed, suki bp 149/49, cuff 82/60, left pedal & left post tibial pulse weaker than R, skin warm/dry,
O2 4 liters nc, lungs decr, sat 96, hypo bowel sounds, no bm, abd soft, round, tender to palpation, abd incis w/ drainage noted on dsg, candelaria draining sayda urine
--- NOTE | 2024-05-19 23:45 | PTCARENOTE ---
Addendum entered by Hien Reardon RN 05/20/24 01:16:
suki- 166/47, Geo reis- 146/61
Original Note:
sys reviewed, changes noted, dilaudid 0.5 mg iv given for pain
[2024-05-20] VITALS (10 sets, daily range): BP systolic 135–158; BP diastolic 51–94; PULSE 91–97; O2SAT 97–98; BMI 21.2
[2024-05-20] LABS: Glucose - Point of Care 103 mg/dl (70-99)
[2024-05-20] MEDS: NOVOLOG FLEXPEN-LOW RESISTANCE SC ×4 (00:15→18:56)
--- NOTE | 2024-05-20 02:00 | PTCARENOTE ---
c/o #10 incis pain & spasms at site, John Denson NP in to see pt, reed 2mg iv & dilaudid 0.5 mg iv given as ordered, CHG bath done, linens changed
[2024-05-20] MEDS: VALIUM INJECTION 2 MG IV (02:21)
[2024-05-20] MEDS: DILAUDID 0.5 MG IV ×3 (02:22→17:56)
--- NOTE | 2024-05-20 03:53 | PTCARENOTE ---
sys reviewed, changes noted
[2024-05-20 04:17] LABS: Hematocrit 43.5 % (39.0-52.0); Hemoglobin 14.8 g/dL (13.0-18.0); Mean Corpuscular Hgb 31.7 pg (27.0-31.0); Mean Corpuscular Volume 93.1 fL (80.0-94.0); Mean Platelet Volume 9.6 fL (7.4-10.4); Platelet Count 230 10^3/uL (130-400); Red Blood Cell Count 4.67 10^6/uL (4.70-6.10); Red Cell Dist. Width 13.5 % (11.5-14.5)
[2024-05-20 04:35] LABS: Blood Urea Nitrogen 16 mg/dl (9-20); Calcium 8.1 mg/dl (8.4-10.2); Carbon Dioxide 17 mmol/L (22-30); Chloride 107 mmol/L (98-107); Estimated Creatinine Clearance > 125 ml/min; Glucose 111 mg/dl (70-99); Magnesium 2.1 mg/dl (1.6-2.3); Potassium 4.3 mmol/L (3.5-5.1); Sodium 139 mmol/L (135-145); eGFR > 60.00
[2024-05-20 05:01] LABS: NT-proBNP 788 pg/ml
[2024-05-20] MEDS: ZOSYN 50 IV ×4 (05:54→23:34)
[2024-05-20 06:04] LABS: Glucose - Point of Care 106 mg/dl (70-99)
--- NOTE | 2024-05-20 06:22 | PTCARENOTE ---
dilaudid 0.5 mg iv given for pain
--- NOTE | 2024-05-20 07:42 | W.PN.ANS.POP ---
Anesthesia Post Operative
- Anesthesia Post Op Note
Vital Signs Stable-See Nursing Note: Yes
Airway Patent: Yes
Adequate Pain Control: Yes
Change in Mental Status: No
Current Postoperative Nausea & Vomiting: No
Anesthesia Complications: No
General Anesthetic Recall: No
Unplanned Admission: No
Post Op Hydration Adequate: Yes
--- NOTE | 2024-05-20 08:16 | W.PN.INTV ---
Today's Communication / Plan
Recommendations
Abx
Follow up blood Cx
Start striverdi + spiriva with prn albuterol
Outpatient PFTs and management of his COPD as well as LDCT Chest imaging for lung cancer screening strongly recommended
Tobacco cessation strongly advised - continue nicotine replacement therapy with patch; can use prn gum/lozenges if needed for breakthrough cravings
NPO and ADAT as per surgery
CTA chest tomorrow to eval left subclavian artery anatomy given concern for calcified stenosis/occlusion
Serial abd exams/pain control
Patient is stable for downgrade out of the ICU to telemetry. No additional recommendations at this time. Cable Rigger/Pulmonary service will now sign off. Please reconsult if there are any additional questions/concerns, or if patient's respiratory
status deteriorates.
Assessment
-
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
05/19/2024.
Impression:
Sepsis without shock due to small bowel enteritis/acute colitis
Low-grade partial SBO
Ischemic bowel with colitis s/p ex-lap with partial cecectomy (POD#1)
COPD without acute exacerbation
Acute HFpEF with interstitial pulmonary edema and small bilateral pleural effusions
Valvular heart disease with mild as moderate TR and moderate pulmonary hypertension
Leukocytosis
Hyperglycemia-with mildly elevated A1c 6.6
Metabolic acidosis
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
Diffuse hepatic steatosis
Active tobacco use
Conditions present prior to admission:
Hypertension.
Hyperlipidemia.
CAD/stent.
Diabetes.
COPD/panlobular emphysema (moderate via PFT from 08/2020 with post-BD FEV1: 2.22L/61% predicted with severe gas exchange capacity defect; DLco: 30% predicted)
Abnormal CT chest-left upper lobe nodule pleural-parenchymal scarring lingula 7 mm-07/2020
Tobacco addiction.
PAD.
Carotid stenosis.
Sciatica.
Left groin cyst removal. Iliac stent with multiple PAD surgeries-including below the knee popliteal artery bypass 2019. Tonsillectomy. Laser with lithotripsy and stenting 2015.
Plan
Admitted patient to medical intensive care unit for persistent hypotension despite fluid resuscitation requiring pressors
Patient underwent ex lap with partial cystectomy on 05/19/[address] Diamond
Keep NPO and advance diet as per surgery
Post-operative care as per surgery
Serial abdominal exams
Pain control but try to limit narcotics given this will worsen constipation
Vascular surgery also on board with plans for CTA of the chest to evaluate his left subclavian artery given possible left subclavian artery stenosis in the setting of widespread calcified arterial occlusive disease
Maintain SpO2 88-95% and wean off O2 as tolerated
If resting SpO2 <96% at rest on room air, then check walking pulse oximetry prior to discharge
Aspiration precautions
Pt was previously on Anoro for his COPD; resume spiriva + Striverdi while hospitalized, and can DC home with Anoro vs Stiolto and I will see him in the office for continued COPD management; continue prn albuterol
Smoking cessation counseling
Nicotine patch, nicotine cessation counseling provided
Follow chest x-ray-mild interstitial edema
Repeat CXR on 05/20/2024 shows preserved LVEF at 55 to 60% with moderate pulmonary hypertension and mild�moderate TR, and normal RV size/function; no prior study available for comparison
Follow-up blood cultures (collected 05/18/2024) � NGTD
Empiric antibiotics-Zosyn initiated on 05/18
Consider Infectious disease consultation
He remains afebrile
Trend leukocytosis
Given that he is a diabetic and is NPO., I will start D5 1/2NS at 60 cc an hour with plans to titrate off tomorrow morning. As state above, defer diet to surgery
DVT prophylaxis-LMWH
GI prophylaxis- DC pantoprazole as no indication for stress ulcer ppx
Early nutrition if possible
Early mobilization/bedside range of motion
Patient last seen in Dr. Reid's office by BOOKER Ventura 06/16/2021 smoking cessation was advised, low-dose radiation CT lung cancer screening exam was recommended and prescription was provided-he subsequently canceled appointments
12/15/2021, 01/20/2022, 04/21/2022-advised periodic pulmonary [id number] will think about it 'I am okay.' I will try to arrange for outpatient office follow up for repeat PFTs, management of his COPD and continued LDCT chest imaging given his
continues tobacco smoke use.
Patient is stable for downgrade out of the ICU to telemetry. No additional recommendations at this time. Cable Rigger/Pulmonary service will now sign off. Thank you for allowing us to be involved in the care of this patient. Please reconsult if
there are any additional questions/concerns, or if patient's respiratory status deteriorates.
Diagnostic data:
Chest x-ray 05/08/2020-NAD
Chest x-ray 08/28/2023-NAD, possible small tiny right pleural effusion
Chest x-ray 05/18/2024-mild interstitial pulmonary edema, upper lobe emphysema
CT berlt-0-25-2021- CT Chest- nodular pleural parenchymal scarring along the inferior medial lingula approximated 0.7 cm. Tree and bud nodules peripherally measuring up to 0.7 cm left lower lobe. Chronic pleural thickening along the posterior lung
base pleura approximated 0.9 cm unchanged from 2017.
CT abdomen 05/19/2024-severe calcified atherosclerotic plaques in the coronary arteries and descending thoracic aorta, minimal bilateral pleural effusions, severe wall thickening in the cecum, moderate diverticulosis, atherosclerotic plaques in the
abdominal aorta, iliac and femoral arteries, greater than 70% diameter stenosis in the superior mesenteric artery and 70% diameter stenosis celiac artery, moderate hepatic steatosis, acute interstitial cardiogenic edema
Spirometry 06/16/2021-FEV1 1.9-53%, FVC 4.09-86%, 8% BD response
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
Total time spent today was 77 minutes for this encounter. Time includes reviewing laboratory test/imaging results, reviewing pertinent medical records, obtaining and reviewing medical history, performing an appropriate exam, ordering medications,
tests and procedures. Time also includes documentation of this encounter, coordinating patient care and communicating with other healthcare professionals. Total time does not include separately billed tests performed on this date of service.
Subjective Dataa
Subjective Data
Date of Service:
Date of Service: May 20, 2024
Chief Complaint: Cable Rigger Follow Up
Subjective:
Patient seen evaluated morning. Underwent ex-lap yesterday with cecectomy. No bowel movements yet and minimal bowel sounds. A-line in place. Has candelaria in place. On 2L/min via nasal cannula and breathing comfortably. He mainly wants to eat and
is 'dying for a cup of coffee.' He does not have any abdominal pain unless palpated. He currently denies shortness of breath, chest pain, NICOLE, nausea, fevers or chills.
Review of Systems
General: Other (Negative unless mentioned above)
Objective Data
Data Reviewed
Vital Signs / I&O / Oxygen:
Vital Signs
Temp Pulse Resp BP Pulse Ox
98.8 F 90 20 139/54 96
05/20/24 08:12 05/20/24 08:12 05/20/24 08:12 05/20/24 08:12 05/20/24 08:12
Intake and Output
05/19/24 05/20/24 05/21/24
06:59 06:59 06:59
Intake Total 1102.5 / 1232.5 2210 / 2270 120 / 120
Output Total 800 / 800 1680 / 1680 200 / 200
Balance 302.5 / 432.5 530 / 590 -80 / -80
SaO2 96
Nasal Cannula flow liters per 2
minute
Physical Exam
General: Respiratory Distress (negative), Comfortable, Chills (negative) and Sweats (negative)
HEENT: Normocephalic and Anicteric
Cardiovascular: S1-S2 and Peripheral Edema (negative)
Respiratory: Clear, Wheeze (negative), Crackles (negative), Rhonchi (negative) and Accessory Resp Muscle Use (negative)
GI: Tender (Generalized upon palpation) and Other (Tense abdomen although not rigid with hypoactive bowel sounds)
Neurology: AO x 3 and Tremors (negative)
Skin: Warm, Dry and Other (Midline vertical bandage over abdomen)
Labs/Micro/Reports
Lab Data
05/20/24 03:25
05/20/24 03:25
Microbiology
05/18/24 20:39 Blood/Venous Blood Culture - Preliminary
No Growth in 24 hours- Final report to follow
05/18/24 20:39 Blood/Venous Blood Culture - Preliminary
No Growth in 24 hours- Final report to follow
--- NOTE | 2024-05-20 08:18 | OR.RPT ---
Operative Report
Operative Report
Primary Surgeon: Dara
Assisting: Iris TSE
Pre-op Diagnosis: Ischemic bowel
Post-op Diagnosis: Necrotic cecum
Procedure Performed: Exploratory laparotomy, partial cecectomy
Anesthesia Type: GETA
Specimen / Cultures: Cecum
Estimated Blood Loss: 5cc
Complications: None immediate
Operative Findings: Lateral corner of cecum frankly necrotic and well demarcated; no other areas of ischemia or necrosis noted. Wedge resection with KOJO 80mm purple load, oversewn with 2-0 vicryl lembert sutures. No stool spillage, no purulence.
Appendix and TI unaffected.
Date of Surgery: 05/19/24
Indications: This 64M developed abdominal pain, septic shock, and peritonitis. Imaging was concerning for threatened bowel. Plan was for emergent exploratory laparotomy.
Description of procedure: The patient was placed on the operating table in the supine position. General anesthesia was induced. A time-out was completed verifying correct patient, procedure, site, positioning, and special equipment prior to
beginning this procedure. An nasogastric tube and candelaria were placed. The abdomen was prepped and draped in the usual sterile fashion. An incision was made in the midline with cut cautery and carried down to the linea alba with coag cautery. The
linea alba was divided and the abdomen entered. The stomach, small bowel and colon were inspected in toto. In the right lower quadrant was an inflammatory mass of omentum wrapped around the cecum which was also densely adherent to the lateral
abdominal wall. The omentum was carefully teased away from the area and the cecum was mobilized off the markedly inflamed tissue of lateral abdominal wall. Some minor bleeding was encountered and controlled with cautery and Vicryl ties. An area of
the lateral cecum was noted to be necrotic and well demarcated. No other ischemic areas were identified. The area was away from the ileocecal valve and the appendix. A KOJO 80mm purple load stapler was used to perform a wedge resection of the
necrotic area of cecum. The staple line was hemostatic. It was oversewn with a layer of 2-0 vicryl lembert sutures. The abdomen was irrigated with sterile saline and the bowel was returned to its neutral position. Omentum was draped over the bowel
and sepra film was placed on top of it. The fascia was closed with running #1 PDS stratafix suture and the skin was closed with ishan. Aquacel dressing applied. The nasogastric tube was removed.
The patient tolerated the procedure well and was taken to the postanesthesia care unit in stable condition.
[2024-05-20] MEDS: NICODERM TRANSDERMAL 21 MG TRANSDERM (08:25)
[2024-05-20] MEDS: NSS (PRESERVATIVE FREE) 10 ML IV (08:25)
[2024-05-20] MEDS: HEPARIN 5000 UNITS SC (08:25)
[2024-05-20] MEDS: PROTONIX IV 40 MG IV (08:26)
[2024-05-20] MEDS: TORADOL 10 MG IV ×3 (08:26→20:16)
--- NOTE | 2024-05-20 09:38 | W.PN.HOSP.TC ---
Today's Communication/Plan
-
Postoperative care.
IV fluids
Antibiotics
Merritt catheter
Vascular surgery consultation
Assessment / Plan
Assessment / Plan
IMPRESSION:
64M PAD b/l lower ext bypass CAD HTN HLD DM COPD severe stenosis SMA chronic mesenteric ischemia p/w progressive abd pain for two days right sided. Initially symptoms started with nausea and one episode of vomiting. Since then patient has had
reduced oral intake due to pain. Last bowel movement was also two days ago. Denies history of abd surgeries. Patient was notably hypotensive during ED evaluation and received 2L with subsequent improvement noted though pressures remain borderline
low systolic high 80s to 90s, MAP consistently >65. Intermittently tachy to 100 with wbc 19.9 concerning for severe sepsis/shock. Otherwise afebrile, no significant lactic acidosis. Stable respiratory status non-labored. CT abd/pelvis with IV
contrast (no oral) concerning for small bowel enteritis and partial bowel obstruction.
Sepsis with septic shock requiring vasopressors.
Acute ischemic bowel.
Acute hypoxic respiratory insufficiency secondary to atelectasis and volume overload. Requiring nasal cannula oxygen at 4 L.
Metabolic acidosis
SMA and celiac stenosis
Conditions prior to admission:
PAD
-Status post left common femoral endarterectomy with patch angioplasty with bovine pericardium, left SMA to below knee popliteal artery bypass with propaten graft.
CAD
Carotid artery stenosis
COPD
Pulmonary nodule on CT of the chest
Tobacco use disorder.
Sciatica
PLAN:
Acute small bowel ischemia with septic shock
CT angiogram
1. SEVERE WALL THICKENING in the CECUM with adjacent pericecal inflammation and a small amount of adjacent ascites which has increased since 05/18/2024. Mild wall thickening throughout the transverse colon, descending colon, and sigmoid colon
which is most suggestive of an acute colitis (most pronounced in the cecum). Moderate circumferential wall thickening in right lower quadrant ileal loops suggestive of either an acute enteritis or reactive wall thickening. Diagnostic possibilities
are (1) an acute infectious or inflammatory enterocolitis, (2) acute cecal diverticulitis, (3) acute ischemic enterocolitis, or (4) less likely cecal adenocarcinoma.
2. Moderate diverticulosis throughout the sigmoid colon.
3. Severe calcific atherosclerotic plaque in the abdominal aorta, iliac, and femoral arteries with patent bilateral external iliac artery stents and patent left common iliac artery stent in place.
4. Bilateral lower extremity femoral bypass grafts in place which appear patent. Occluded bilateral proximal superficial femoral arteries.
5. Severe greater than 70% diameter stenosis in the superior mesenteric artery, 50-70% diameter stenosis in the celiac artery, and patent inferior mesenteric artery.
6. Moderate diffuse hepatic steatosis.
7. Acute interstitial cardiogenic pulmonary edema.
8. Minimal bilateral pleural effusions
9. Moderate multilevel lumbar discogenic degenerative disease.
Status post exploratory laparotomy and partial cecotomy 05/19.
Postoperative care
N.p.o. ROBF
Broad-spectrum antibiotics: Zosyn
IV fluids, isotonic solution.
Has been off pressors.
If BP stable consider remove PICC line
Remains with Merritt catheter
N.p.o. at
Analgesia
Incentive spirometry
Acute hypoxic respiratory.
Likely multifactorial in the settings of atelectasis, sepsis, volume overload with IV fluids required for resuscitation
Echocardiogram is pending
Attempt to wean off oxygen
Incentive spirometry.
COPD without exacerbation baseline
Tobacco use disorder on nicotine patch
Counseling about quitting
PAD
Carotid artery stenosis.
Status post lower extremity revascularization as above.
Noted with severe greater than 70% stenosis and SMA and celiac artery.
Vascular surgery consultation
Resume DAPT when cleared by surgery.
CAD.
Essential hypertension.
Echocardiogram is pending.
Preadmission regimen including metoprolol, Imdur, Norvasc, statin.
Resume antihypertensives when hemodynamically stable
Type 2 diabetes
Hemoglobin A1c 6.6
Has been off oral meds acutely
Preadmission regimen metformin, Jardiance, glipizide
Total Critical Care Time__45__ minutes. I was immediately available to the patient and staff. I personally examined, reviewed labs, diagnostic images/reports, interpretations, treatment plans, discussed patient care with other providers, patient
and his brother Jermaine, entered orders as appropriate and documented the medical record.
Anticipated Discharge: 24 - 48 hours
Subjective/Interval History
-
Date of Service: May 20, 2024
Objective Data
-
Labs:
Laboratory Results
05/20/24
03:25
WBC 15.0 H
Hgb 14.8
Hct 43.5
Plt Count 230
Sodium 139
Potassium 4.3
Chloride 107
Carbon Dioxide 17 L
BUN 16
Creatinine 0.5 L
Glucose 111 H
Calcium 8.1 L
Vital Signs:
Vital Signs
Temp Pulse Resp BP Pulse Ox
98.8 F 90 20 139/54 96
05/20/24 08:12 05/20/24 08:12 05/20/24 08:12 05/20/24 08:12 05/20/24 08:12
I&O
05/19/24 05/20/24 05/21/24
06:59 06:59 06:59
Intake Total 1102.5 / 1232.5 2210 / 2270 120 / 120
Output Total 800 / 800 1680 / 1680 200 / 200
Balance 302.5 / 432.5 530 / 590 -80 / -80
Physical Exam
-
General: Well Developed and No Apparent Distress
HEENT: Normocephalic, Atraumatic and Moist Mucous Membranes
Respiratory: Clear to Auscultation
Cardiac: Regular Rhythm and S1/S2; Negative Murmur, Rub or Gallop
GI: Soft, Nontender, Nondistended and Normal Bowel Sounds; Negative Organomegaly
Rectal: Deferred by Provider
Genito-urinary: Merritt
Musculoskeletal: No Clubbing, No Cyanosis and No Edema
Skin: Negative Rash
Neuro: Nonfocal/Grossly Intact
--- NOTE | 2024-05-20 09:53 | PTCARENOTE ---
Updated assessment, vital sign trends ongoing and as documented. Follow up pain relief measures, trends and medications ongoing and via Emar. Surgery rounded this am will follow up new orders and POD plan of cares. Hospitalist team at bedside. Will
update new orders and plan for transfer later today. Await update and am rounds for Security Guard Supervisor team. Follow up incentive spirometer, PT/OT needs and post op day care. Critical care rounds ongoing. Echo team at bedside.
--- NOTE | 2024-05-20 11:12 | W.PN.GS2 ---
Today's Communication / Plan
-
Pain management
Assessment / Plan
-
64 yo male with a h/o PAD with multiple grafts, DM & current smoker who presented with abdominal pain/hypotension with CT concerning for ischemic bowel
POD #1 ex lap with partial cecectomy for small portion of ischemic bowel
Leukocytosis improved
Off pressors since OR
Await bowel recovery
--NPO with sips/chips
--Will add scheduled toradol/ofirmev in addition to prn diluadid to improve pain control
--OOB/Ambulate
--Hold plavix for minimum of 48h post op, ok to continue ASA
--Ok from surgical standpoint for transfer out of unit
--Medical management as per primary team
Discussed case with hospitalist, vascular consult is pending
Subjective Data
-
Date of Service: May 20, 2024
Patient seen and examined at bedside with Dr. Lomas. Pain to incision site overnight. Denies n/v. Not yet passing flatus. Would like a coffee.
Objective Data
-
Intake and Output
05/19/24 05/20/24 05/21/24
06:59 06:59 06:59
Intake Total 1102.5 / 1232.5 2210 / 2270 240 / 240
Output Total 800 / 800 1680 / 1680 200 / 200
Balance 302.5 / 432.5 530 / 590 40 / 40
Intake:
IV fluids (Total) 1002.5 / 1132.5 2060 / 2120 240 / 240
Levophed 202.5 / 232.5 210 / 210
Nss 1,000 ml @ 100 mls/hr IV . 800 / 900 1250 / 1250
Q10H SHASHI Rx#:[id number]
Nss 1,000 ml @ 60 mls/hr IV . 600 / 660 240 / 240
[id number] SHASHI Rx#:[id number]
IV piggybacks 100 / 100 150 / 150
Output:
Urine, Merritt 1155 / 1155 200 / 200
Urine, Voided 800 / 800 525 / 525
Vital Signs
Temp Pulse Resp BP Pulse Ox
98.8 F 87 18 153/70 97
05/20/24 08:12 05/20/24 10:00 05/20/24 10:00 05/20/24 08:30 05/20/24 10:00
Lab Results
05/20/24 03:25
05/20/24 03:25
Calcium 8.1 mg/dl (8.4-10.2) L 05/20/24 03:25
Phosphorus 3.0 mg/dl (2.5-4.5) 05/20/24 03:25
Magnesium 2.1 mg/dl (1.6-2.3) 05/20/24 03:25
Total Bilirubin 0.7 mg/dl (0.2-1.3) 05/18/24 13:25
AST 23 U/L (17-59) 05/18/24 13:25
ALT 22 U/L (0-50) 05/18/24 13:25
Alkaline Phosphatase 49 U/L (38-126) 05/18/24 13:25
Total Protein 6.6 g/dl (6.3-8.2) 05/18/24 13:25
Albumin 4.2 g/dl (3.5-5.0) 05/18/24 13:25
Physical Exam
-
NAD
ABD soft, minimal distention, tenderness to lower abd/incision
Incision dressing is dry intact with minimal strikethrough
--- NOTE | 2024-05-20 11:23 | CON.VAS ---
Addendum entered and electronically signed by Esvin Merritt III, MD 05/20/24 16:35:
This patient was seen and examined with BOOKER Hawkins. I agree with the history and physical exam as well as the assessment and plan. I have the following additions:
Patient well-known to me
Heavy smoker with refusal to quit
Bilateral lower extremity bypasses for chronic limb threatening ischemia
Now with partial cecectomy secondary to area of necrosis.
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
He is currently pain-free and asking to eat
My recommendation is for arteriogram and attempted endovascular intervention on the superior mesenteric artery stenosis. He has significantly lower noninvasive blood pressure on the left brachial compared to the right and may have an underlying
subclavian stenosis or occlusion given his widespread calcified arterial occlusive disease.
Plan for CT angiogram of the chest to evaluate his left subclavian artery.
Can plan for endovascular intervention following review of the CTA
Discussed with patient who agrees with the plan.
Also discussed the importance of complete smoking cessation once again as I have done at every encounter with him over the years but he does not get it.
Signed:
Esvin Merritt III, MD
[facility]
[phone] ([phone])
Original Note:
Consultation
Consultation Request
Performing Provider: Shaina
Reason for Consultation: SMA stenosis
Medical History
-
Chief Complaint: Abdominal pain
History of Present Illness:
64 yo male with PMH lower ext bypass, CAD, HTN, HLD, DM, and COPD presented to the ER on 05/18 for two days of right sided abdominal pain (right sided mostly). Initially stated with nausea and vomiting. Pt states he has not been eating due to 'not
wanting to swallow.' Denies pain after eating. ER CT showed concern for ischemic bowel. General surgery took pt to the operating room and found 'lateral corner of cecum frankly necrotic and well demarcated; no other areas of ischemia or necrosis
noted. Wedge resection with KOJO 80mm purple load, oversewn with 2-0 vicryl lembert sutures. No stool spillage, no purulence. Appendix and TI unaffected.'
CTA vascular: Severe greater than 70% diameter stenosis in the superior mesenteric artery, 50-70% diameter stenosis in the celiac artery, and patent inferior mesenteric artery.
Vascular consult for above findings. Pt well known to our service, last seen in office on 01/11/24 was without complaints at that time. Patient seen at bedside this am with Dr Merritt.
Past Medical History
Past Medical History: CAD, COPD, HTN, Hypercholesterolemia and NIDDM
Past Surgical History: Other (Left common femoral endarterectomy 08/2023, left and right grafts/angioplasty: multiple 2022 )
Social History
Tobacco: Smoker
Alcohol: None
Drug: None
Personal: Single
Living: With Family
Employment: Employed
Family History
Family History: Reviewed & Not Pertinent
Allergies / Home Medications
Allergy/AdvReac Type Severity Reaction Status Date / Time
lisinopril Allergy cough Verified 05/18/24 12:13
varenicline Allergy chest pain Verified 05/18/24 12:13
�Medication �Instructions �Recorded �Confirmed �Type
aspirin 81 mg tablet,delayed 81 mg PO DAILY Blood Clot 05/13/13 05/18/24 History
release Prevention/Tx
amlodipine 5 mg tablet 5 mg PO DAILY Blood Pressure 05/20/14 05/18/24 History
metoprolol succinate 50 mg 50 mg PO QPM 05/19/20 05/18/24 Rx
tablet,extended release 24 hr
atorvastatin 40 mg tablet 40 mg PO QPM High Cholesterol 07/11/23 05/18/24 History
empagliflozin 10 mg tablet 10 mg PO QPM Diabetes 07/11/23 05/18/24 History
(Jardiance)
multivitamin 1 tab PO DAILY Supplement 07/11/23 05/18/24 History
isosorbide mononitrate 60 mg 60 mg PO BID Heart 08/24/23 05/18/24 History
tablet,extended release 24 hr Disease/Condition
glipizide 5 mg tablet 5 mg PO BID@0800,1700 #60 tabs 09/05/23 05/18/24 Rx
clopidogrel 75 mg tablet 75 mg PO DAILY Blood Clot 05/18/24 05/18/24 History
Prevention/Tx
metformin 500 mg tablet 1,000 mg PO BID@0800,1700 Diabetes 05/18/24 05/18/24 History
Review of Systems
-
History Source: Patient
All other systems: Negative unless noted
Constitutional: Reports Weight Loss
EENT: Reports No Symptoms
Respiratory: Reports No Symptoms
Cardiac: Reports No Symptoms
Vascular: Denies Leg Pain / Claudication
Abdomen/GI: Reports Abdominal Pain
: Reports No Symptoms
Musculoskeletal: Reports No Symptoms
Skin: Reports No Symptoms
Neurological: Reports No Symptoms
Endocrine: Reports No Symptoms
Physical Exam
Vital Signs
Temp Pulse Resp BP Pulse Ox
98.8 F 87 18 153/70 97
05/20/24 08:12 05/20/24 10:00 05/20/24 10:00 05/20/24 08:30 05/20/24 10:00
Lab Results
05/20/24 03:25
05/20/24 03:25
Xbf-A-Npbzktbdhtd Pept 788 pg/ml 05/20/24 03:25
Physical Exam
General: No Apparent Distress
HEENT: Normocephalic and Atraumatic
Respiratory: Non Labored Respirations
Cardiac: Negative JVD
GI: Soft
Musculoskeletal: No Clubbing, No Cyanosis and No Edema
Skin: Warm
Neuro: Awake, Alert and Oriented
Psych: Calm
Assessment / Plan
-
64 yo male POD 1 Exploratory laparotomy, partial cecectomy- with general surgery
SMA and celiac stenosis noted on CTA
Plan:
-CTA chest this am to assess access possibilities for potential stenting of SMA
-Will follow up after scan
[2024-05-20 12:42] LABS: Glucose - Point of Care 109 mg/dl (70-99)
[2024-05-20] MEDS: ASPIR LOW (ENTERIC COATED) 81 MG PO (12:49)
[2024-05-20] MEDS: OFIRMEV 100 IV ×2 (13:20→20:15)
[2024-05-20] MEDS: NSS IV (13:54)
--- NOTE | 2024-05-20 13:55 | PTCARENOTE ---
Order follow up plan for CT scan. Continue vascular evaluation follow up consult. Update at bedside with [facility] team. Follow up orders plan of transfer await bed, await scan, continue with follow up teaching. Continue supportive cares,
incentive spirometer ongoing. continued reinforcement of care plan.
[2024-05-20] MEDS: D5/0.45%NACL 1000 IV (14:21)
--- NOTE | 2024-05-20 14:58 | PTCARENOTE ---
Ambulate to chair. Ambulate to wheelchair. One person assist/supervision. Reinforce mobility, reinforce incentive spirometer and follow up plan of cares with patient. Transport with RN to out team.
--- NOTE | 2024-05-20 15:00 | CM ---
CM following re: discharge planning.
Reviewed pt's chart, met with pt.
Pt is a 64 year old male, admitted with primary dx of POD #1 ex lap with partial cecectomy for small portion of ischemic bowel.
Pt reports he lives with brother 2SH, 3 steps to enter, has no children. Pt described himself as independent in all areas [employer]. No DME, VN or SNF history. Pt expressed his desire to return back home at discharge.
PCP: [facility]
Pharmacy: [facility].
D/C plan: home with anticipated no needs. Brother to transport at discharge.
CM will follow with discharge plan updates as hospitalization progresses
--- NOTE | 2024-05-20 15:30 | PTCARENOTE ---
Pt received from ICU via w/c. Transport was w/o incident. Pt is AAOx3, HRR, Lungs post. w/o audible Wheezes or rales. Pt with upper respiratory congestion w/ moist cough, reporting that he is expectorating yellow sputum. Pt's abd with hypo BS,
denies flatus, abd w/antibacterial dressing w/ old shadowing noted. No new bleeding noted. VSS, Pt is afebrile. Pt without edema lower legs/feet. Positive normal pedal pulses noted b/l. Pt instructed on plan of care. Pt verbalized understanding of
instructions. Call woodard is within reach.
[2024-05-20 17:49] LABS: Glucose - Point of Care 169 mg/dl (70-99)
[2024-05-20] MEDS: LOVENOX 40 MG SC (17:56)
[2024-05-20 21:22] LABS: Glucose - Point of Care 134 mg/dl (70-99)
--- NOTE | 2024-05-20 22:39 | PTCARENOTE ---
Pt pleasant and cooperative able to make needs known, pain manageable @ this time with scheduled medications, candelaria patent and passing flatus.
[2024-05-21] VITALS (7 sets, daily range): BP systolic 144–176; BP diastolic 66–76; BMI 21.7
[2024-05-21 00:13] LABS: Glucose - Point of Care 173 mg/dl (70-99)
[2024-05-21] MEDS: NOVOLOG FLEXPEN-LOW RESISTANCE 1 UNITS SC (00:15)
[2024-05-21] MEDS: OFIRMEV 100 IV ×2 (02:13→08:43)
[2024-05-21] MEDS: TORADOL 10 MG IV ×2 (02:13→08:44)
[2024-05-21] MEDS: ZOSYN 50 IV ×4 (05:28→23:24)
[2024-05-21] MEDS: D5/0.45%NACL 1000 IV (05:38)
[2024-05-21 06:09] LABS: Glucose - Point of Care 145 mg/dl (70-99)
[2024-05-21] MEDS: NOVOLOG FLEXPEN-LOW RESISTANCE SC ×3 (06:30→16:29)
[2024-05-21 07:16] LABS: Hematocrit 42.5 % (39.0-52.0); Mean Corp Hgb Conc. 35.3 g/dL (33.0-37.0); Mean Corpuscular Hgb 32.6 pg (27.0-31.0); Mean Corpuscular Volume 92.4 fL (80.0-94.0); Mean Platelet Volume 9.6 fL (7.4-10.4); Platelet Count 241 10^3/uL (130-400); Red Cell Dist. Width 13.2 % (11.5-14.5); White Blood Cell Count 11.2 10^3/uL (4.8-10.8)
[2024-05-21 07:33] LABS: Blood Urea Nitrogen 17 mg/dl (9-20); Calcium 8.2 mg/dl (8.4-10.2); Carbon Dioxide 20 mmol/L (22-30); Chloride 105 mmol/L (98-107); Estimated Creatinine Clearance > 125 ml/min; Glucose 147 mg/dl (70-99); Magnesium 2.2 mg/dl (1.6-2.3); Phosphorus 1.6 mg/dl (2.5-4.5); Potassium 3.9 mmol/L (3.5-5.1); Sodium 137 mmol/L (135-145); eGFR > 60.00
--- NOTE | 2024-05-21 08:15 | W.PN.GS2 ---
Addendum entered and electronically signed by Gerhard Griggs MD 05/21/24 08:30:
-- GI: Protonix added given NPO, stress and underlying issue with mesenteric ischemia
-- DVT: on Lovenox
-- Abx: Zosyn, unsure of plan for timing would continue for tentative plan of 4 days post-op given ischemia, bowel resection, and to prevent translocation with potential continued issues until vascular work-up and management completed (will confirm
timing with operative surgeon)
Original Note:
Today's Communication / Plan
-
--NPO pending CTA
--OK for clears if no plans from Vascular Surgery perspective
--Will add scheduled Toradol/Ofirmev in addition to PRN Diluadid to improve pain control, OK to begin PO pain meds when diet advanced
--Hold Plavix for minimum of 48h post op, would continue to hold today until diet advancement, ok to continue ASA
Assessment / Plan
-
64 yo male with a h/o PAD with multiple grafts, DM & current smoker who presented with abdominal pain/hypotension with CT concerning for ischemic bowel
POD #2 ex lap with partial cecectomy for small portion of ischemic bowel
AVSS
Leukocytosis improved
Slow return of bowel function expected
Vascular Surgery noted, plan for CTA and possible endovascular intervention pending these findings. From General Surgery perspective OK for trial of clears and possibly fulls this evening.
--NPO pending CTA, OK for clears if no plans from Vascular Surgery perspective
--Will add scheduled Toradol/Ofirmev in addition to PRN Diluadid to improve pain control, OK to begin PO pain meds when diet advanced
--OOB/Ambulate
--Hold plavix for minimum of 48h post op, OK to continue ASA
--Medical management as per primary team
Discussed case with hospitalist, vascular consult is pending
Subjective Data
-
Date of Service: May 21, 2024
No major complaints. Pain well-controlled. No nausea or vomiting. Reports passing flatus, no BM. Ambulating. Voiding.
Objective Data
-
Intake and Output
05/20/24 05/21/24 05/22/24
06:59 06:59 06:59
Intake Total 2210 / 2270 2160 / 2160
Output Total 1680 / 1680 1300 / 1300
Balance 530 / 590 860 / 860
Intake:
Oral fluids 230 / 230
IV fluids (Total) 2060 / 2120 1380 / 1380
Levophed 210 / 210
Nss 1,000 ml @ 100 mls/hr IV . 1250 / 1250
Q10H SHAHSI Rx#:[id number]
Nss 1,000 ml @ 60 mls/hr IV . 600 / 660 420 / 420
[id number] SHASHI Rx#:[id number]
IV piggybacks 150 / 150 550 / 550
Output:
Urine, Merritt 1155 / 1155 1300 / 1300
Urine, Voided 525 / 525
Vital Signs
Temp Pulse Resp BP Pulse Ox
97.7 F 87 17 166/66 92
05/21/24 07:49 05/21/24 07:49 05/21/24 07:49 05/21/24 07:49 05/21/24 07:49
Lab Results
05/21/24 04:45
05/21/24 04:45
Calcium 8.2 mg/dl (8.4-10.2) L 05/21/24 04:45
Phosphorus 1.6 mg/dl (2.5-4.5) L 05/21/24 04:45
Magnesium 2.2 mg/dl (1.6-2.3) 05/21/24 04:45
Total Bilirubin 0.7 mg/dl (0.2-1.3) 05/18/24 13:25
AST 23 U/L (17-59) 05/18/24 13:25
ALT 22 U/L (0-50) 05/18/24 13:25
Alkaline Phosphatase 49 U/L (38-126) 05/18/24 13:25
Total Protein 6.6 g/dl (6.3-8.2) 05/18/24 13:25
Albumin 4.2 g/dl (3.5-5.0) 05/18/24 13:25
Physical Exam
-
Gen: NAD
Abd: soft, mild tenderness, mild distension, non-peritoneal, midline dressing with shadowing, no active drainage
[2024-05-21] MEDS: STRIVERDI RESPIMAT 2 PUFF INH (08:20)
[2024-05-21] MEDS: SPIRIVA RESPIMAT 2.5 MCG 2 PUFF INH (08:21)
[2024-05-21] MEDS: NICODERM TRANSDERMAL 21 MG TRANSDERM (08:43)
[2024-05-21] MEDS: ASPIR LOW (ENTERIC COATED) 81 MG PO (08:43)
[2024-05-21] MEDS: NSS (PRESERVATIVE FREE) 10 ML IV (08:44)
[2024-05-21] MEDS: PROTONIX IV 40 MG IV (08:44)
--- NOTE | 2024-05-21 08:45 | PN.CDI ---
CDI
- -
CDI:
Physician Documentation Request
Admit Date: 05/18/24 19:39
Dear Doctor Jose,
Please review the following and provide your response in the progress notes.
Clinical Indicators:
- 05/20 PN 'Sepsis with septic shock requiring vasopressors'
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
- 'persistent hypotension despite fluid resuscitation requiring pressors'
- 05/18-05/19 on Levophed and 6L IVF given
In an attempt to clarify potentially conflicting documentation, please clarify the status of septic shock:
Sepsis with septic shock, resolved
Sepsis without septic shock, resolved
Other
Use of terms such as suspected, likely, concern for, or probable (associated with a specific diagnosis that is being evaluated, monitored, or treated as if it exists) are acceptable and can be coded in the inpatient setting, when documented at the
time of discharge.
Thank you,
Cici Parker RN
CDI Specialist
Please use your independent medical judgment in providing your response.
[2024-05-21 11:45] LABS: Glucose - Point of Care 133 mg/dl (70-99)
--- NOTE | 2024-05-21 12:03 | CM ---
Patient seen at bedside.
Clear liquids, cont IV antibiotics
PT recommend home health.
Options reviewed with patient & prefers [facility]
Referral placed in [facility].
Lives with brother & his .
CM to continue to follow
PLAN: home with visiting nurse.
[2024-05-21 13:20] LABS: NT-proBNP 505 pg/ml
--- NOTE | 2024-05-21 15:26 | W.PN.HOSP.TC ---
Today's Communication/Plan
-
Clear liquid diet
Continue analgesia
Wean off IV fluids if tolerates diet
Resume metoprolol and Imdur holding Norvasc
Hopefully to resume Plavix on 05/22 if cleared with surgery.
CT angio noted with plan for SMA revascularization tentatively on Monday
Assessment / Plan
Assessment / Plan
IMPRESSION:
64M PAD b/l lower ext bypass CAD HTN HLD DM COPD severe stenosis SMA chronic mesenteric ischemia p/w progressive abd pain for two days right sided. Initially symptoms started with nausea and one episode of vomiting. Since then patient has had
reduced oral intake due to pain. Last bowel movement was also two days ago. Denies history of abd surgeries. Patient was notably hypotensive during ED evaluation and received 2L with subsequent improvement noted though pressures remain borderline
low systolic high 80s to 90s, MAP consistently >65. Intermittently tachy to 100 with wbc 19.9 concerning for severe sepsis/shock. Otherwise afebrile, no significant lactic acidosis. Stable respiratory status non-labored. CT abd/pelvis with IV
contrast (no oral) concerning for small bowel enteritis and partial bowel obstruction.
Sepsis with septic shock requiring vasopressors.
Acute ischemic bowel.
Acute hypoxic respiratory insufficiency secondary to atelectasis and volume overload. Requiring nasal cannula oxygen at 4 L.
Metabolic acidosis
SMA and celiac stenosis
Conditions prior to admission:
PAD
-Status post left common femoral endarterectomy with patch angioplasty with bovine pericardium, left SMA to below knee popliteal artery bypass with propaten graft.
CAD
Carotid artery stenosis
COPD
Pulmonary nodule on CT of the chest
Tobacco use disorder.
Sciatica
PLAN:
Acute small bowel ischemia with septic shock
CT angiogram
1. SEVERE WALL THICKENING in the CECUM with adjacent pericecal inflammation and a small amount of adjacent ascites which has increased since 05/18/2024. Mild wall thickening throughout the transverse colon, descending colon, and sigmoid colon
which is most suggestive of an acute colitis (most pronounced in the cecum). Moderate circumferential wall thickening in right lower quadrant ileal loops suggestive of either an acute enteritis or reactive wall thickening. Diagnostic possibilities
are (1) an acute infectious or inflammatory enterocolitis, (2) acute cecal diverticulitis, (3) acute ischemic enterocolitis, or (4) less likely cecal adenocarcinoma.
2. Moderate diverticulosis throughout the sigmoid colon.
3. Severe calcific atherosclerotic plaque in the abdominal aorta, iliac, and femoral arteries with patent bilateral external iliac artery stents and patent left common iliac artery stent in place.
4. Bilateral lower extremity femoral bypass grafts in place which appear patent. Occluded bilateral proximal superficial femoral arteries.
5. Severe greater than 70% diameter stenosis in the superior mesenteric artery, 50-70% diameter stenosis in the celiac artery, and patent inferior mesenteric artery.
6. Moderate diffuse hepatic steatosis.
7. Acute interstitial cardiogenic pulmonary edema.
8. Minimal bilateral pleural effusions
9. Moderate multilevel lumbar discogenic degenerative disease.
Status post exploratory laparotomy and partial cecotomy 05/19.
Postoperative care
N.p.o. ROBF
Broad-spectrum antibiotics: Zosyn
Has been off pressors.
If BP stable consider remove PICC line
Remains with Merritt catheter
Clear liquid diet. Wean off IV fluids
Analgesia
Incentive spirometry
Acute hypoxic respiratory insufficiency
Likely multifactorial in the settings of atelectasis, sepsis, volume overload with IV fluids required for resuscitation
Echocardiogram 05/20 with normal LV size and function LVEF 55-60%. Mild to moderate TR. Pulmonary artery pressure 52 mmHg
Wean off oxygen as tolerates
Incentive spirometry.
COPD without exacerbation baseline
Tobacco use disorder on nicotine patch
Counseling about quitting
PAD
Carotid artery stenosis.
Status post lower extremity revascularization as above.
Noted with severe greater than 70% stenosis and SMA and celiac artery.
Vascular surgery consultation
CT angio 05/21:
IMPRESSION:
1. Occlusion of the left subclavian artery. Moderate stenosis at the origin of the brachiocephalic artery.
2. Advanced aortic atherosclerotic changes without aneurysmal dilation or flow limiting stenosis. Severe coronary artery calcification.
3. Mild to moderate CHF with very small bilateral effusions with adjacent atelectasis.
4. Emphysema.
5. Secretions/mucous plugging in the left lower lobar bronchus extending into segmental branches.
6. Small volume pneumoperitoneum related to known recent abdominal surgery.
Plan is for SMA revascularization tentatively on 05/23
Resume DAPT when cleared by surgery.
CAD.
Essential hypertension.
Echocardiogram as above
Preadmission regimen including metoprolol, Imdur, Norvasc, statin.
Resume metoprolol and Imdur.
Hold Norvasc
Type 2 diabetes
Hemoglobin A1c 6.6
Has been off oral meds acutely
Preadmission regimen metformin, Jardiance, glipizide
Anticipated Discharge: > 48 hours
Subjective/Interval History
-
Date of Service: May 21, 2024
Objective Data
-
Labs:
Laboratory Results
05/21/24
04:45
WBC 11.2 H
Hgb 15.0
Hct 42.5
Plt Count 241
Sodium 137
Potassium 3.9
Chloride 105
Carbon Dioxide 20 L
BUN 17
Creatinine 0.5 L
Glucose 147 H
Calcium 8.2 L
Vital Signs:
Vital Signs
Temp Pulse Resp BP Pulse Ox
97.4 F 90 19 150/73 100
05/21/24 15:16 05/21/24 15:16 05/21/24 15:16 05/21/24 15:16 05/21/24 15:16
I&O
05/20/24 05/21/24 05/22/24
06:59 06:59 06:59
Intake Total 2210 / 2270 2160 / 2160
Output Total 1680 / 1680 1300 / 1300
Balance 530 / 590 860 / 860
Physical Exam
-
General: Well Developed and No Apparent Distress
HEENT: Normocephalic, Atraumatic and Moist Mucous Membranes
Respiratory: Clear to Auscultation
Cardiac: Regular Rhythm and S1/S2; Negative Murmur, Rub or Gallop
GI: Soft, Nontender, Nondistended and Normal Bowel Sounds; Negative Organomegaly
Rectal: Deferred by Provider
Musculoskeletal: No Clubbing, No Cyanosis and No Edema
Skin: Negative Rash
Neuro: Nonfocal/Grossly Intact
[2024-05-21 16:22] LABS: Glucose - Point of Care 144 mg/dl (70-99)
[2024-05-21] MEDS: LOVENOX 40 MG SC (17:05)
[2024-05-21] MEDS: TOPROL XL 50 MG PO (17:06)
[2024-05-21] MEDS: IMDUR (EXTENDED RELEASE) 60 MG PO (20:55)
[2024-05-21 21:34] LABS: Glucose - Point of Care 158 mg/dl (70-99)
[2024-05-21] MEDS: DILAUDID 0.5 MG IV (22:27)
[2024-05-22] VITALS (8 sets, daily range): BP systolic 119–153; BP diastolic 57–66; PULSE 91–93; O2SAT 93; BMI 21.3
[2024-05-22] MEDS: DILAUDID 0.5 MG IV ×3 (02:52→10:17)
[2024-05-22] MEDS: ZOSYN 50 IV ×4 (05:12→23:22)
[2024-05-22] MEDS: STRIVERDI RESPIMAT 2 PUFF INH (07:43)
[2024-05-22] MEDS: SPIRIVA RESPIMAT 2.5 MCG 2 PUFF INH (07:43)
[2024-05-22 07:51] LABS: Hematocrit 41.1 % (39.0-52.0); Hemoglobin 14.6 g/dL (13.0-18.0); Mean Corp Hgb Conc. 35.5 g/dL (33.0-37.0); Mean Corpuscular Hgb 32.7 pg (27.0-31.0); Mean Corpuscular Volume 92.2 fL (80.0-94.0); Mean Platelet Volume 9.3 fL (7.4-10.4); Platelet Count 259 10^3/uL (130-400); Red Blood Cell Count 4.46 10^6/uL (4.70-6.10); Red Cell Dist. Width 13.1 % (11.5-14.5)
[2024-05-22 08:08] LABS: Blood Urea Nitrogen 13 mg/dl (9-20); Calcium 8.3 mg/dl (8.4-10.2); Carbon Dioxide 27 mmol/L (22-30); Chloride 100 mmol/L (98-107); Estimated Creatinine Clearance > 125 ml/min; Glucose 131 mg/dl (70-99); Magnesium 1.9 mg/dl (1.6-2.3); Phosphorus 2.1 mg/dl (2.5-4.5); Potassium 3.6 mmol/L (3.5-5.1); Sodium 137 mmol/L (135-145); eGFR > 60.00
[2024-05-22 08:20] LABS: Glucose - Point of Care 153 mg/dl (70-99)
--- NOTE | 2024-05-22 09:15 | W.PN.UPDATE ---
Update Note
Progress Note Update
Spoke with patient this morning regarding plan for OR Monday for SMA stent placement with Dr. Merritt. Patient agreeable and states understanding. All questions answered. Team aware
[2024-05-22] MEDS: ASPIR LOW (ENTERIC COATED) 81 MG PO (10:10)
[2024-05-22] MEDS: NSS (PRESERVATIVE FREE) 10 ML IV (10:10)
[2024-05-22] MEDS: PROTONIX IV 40 MG IV (10:11)
[2024-05-22] MEDS: NOVOLOG FLEXPEN-LOW RESISTANCE 1 UNITS SC ×3 (10:11→18:44)
[2024-05-22] MEDS: NICODERM TRANSDERMAL 21 MG TRANSDERM (10:16)
[2024-05-22] MEDS: IMDUR (EXTENDED RELEASE) 60 MG PO ×2 (10:17→19:58)
--- NOTE | 2024-05-22 10:42 | W.PN.GS2 ---
Today's Communication / Plan
-
Clears
Restart plavix
Multimodal pain regimen
ambulate
Assessment / Plan
-
64 yo male with a h/o PAD with multiple grafts, DM & current smoker who presented with ischemic cecum
POD #3 ex lap with partial cecectomy for small portion of ischemic bowel
AVSS
Leukocytosis improving
Slow return of bowel function expected, passing flatus but gets pain with PO intake
Vascular Surgery noted, plan for CTA and possible endovascular intervention pending these findings. From General Surgery perspective OK for trial of clears and possibly fulls this evening.
--Remain on CLD for now
--Will add scheduled PO tylenol/neel in addition to PRN Diluadid to improve pain control
--OOB/Ambulate
--Restart plavix, d/w Vascular Surgery team
--Tentative plan for revasc procdure with Vascular Thursday 05/24
--All other care as per primary team
Subjective Data
-
Date of Service: May 22, 2024
AFVSS, denies nausea, c/o hiccups, passing flatus, ambulating, issues with pain control, c/o increased pain with eating
Objective Data
-
Intake and Output
05/21/24 05/22/24 05/23/24
06:59 06:59 06:59
Intake Total 2160 / 2160 1810 / 1810
Output Total 1300 / 1300 800 / 800
Balance 860 / 860 1010 / 1010
Intake:
Oral fluids 230 / 230 1560 / 1560
IV fluids (Total) 1380 / 1380 0 / 0
Nss 1,000 ml @ 60 mls/hr IV . 420 / 420
[id number] SHASHI Rx#:[id number]
IV piggybacks 550 / 550 250 / 250
Output:
Urine, Merritt 1300 / 1300
Urine, Voided 800 / 800
Other:
Number of approximated MODERATE 1
amounts of urine
Number of approximated LARGE 1
amounts of urine
Vital Signs
Temp Pulse Resp BP Pulse Ox
98.1 F 83 16 153/66 95
05/22/24 07:30 05/22/24 07:30 05/22/24 07:30 05/22/24 07:30 05/22/24 07:30
Lab Results
05/22/24 06:47
05/22/24 06:47
Calcium 8.3 mg/dl (8.4-10.2) L 05/22/24 06:47
Phosphorus 2.1 mg/dl (2.5-4.5) L 05/22/24 06:47
Magnesium 1.9 mg/dl (1.6-2.3) 05/22/24 06:47
Total Bilirubin 0.7 mg/dl (0.2-1.3) 05/18/24 13:25
AST 23 U/L (17-59) 05/18/24 13:25
ALT 22 U/L (0-50) 05/18/24 13:25
Alkaline Phosphatase 49 U/L (38-126) 05/18/24 13:25
Total Protein 6.6 g/dl (6.3-8.2) 05/18/24 13:25
Albumin 4.2 g/dl (3.5-5.0) 05/18/24 13:25
Physical Exam
-
Gen: NAD
Abd: soft, approp ttp, aquacel OK
--- NOTE | 2024-05-22 11:39 | CM ---
Reviewed the chart notes. Per notes, tentative plan for revasc procedure with Vascular Thursday 05/24. CM continues to be available to patient/family and is monitoring medical plan for needs at discharge.
Plan: Discharge to home with [facility] services.
[2024-05-22 13:07] LABS: Glucose - Point of Care 161 mg/dl (70-99)
[2024-05-22] MEDS: PLAVIX PO (13:15)
[2024-05-22] MEDS: TYLENOL 1000 MG PO ×3 (13:15→23:22)
[2024-05-22] MEDS: PLAVIX 75 MG PO (13:59)
--- NOTE | 2024-05-22 16:48 | W.PN.HOSP.TC ---
Today's Communication/Plan
-
Continue IV antibiotics for another 24 to 48 hours.
Resume Plavix
Clear liquid diet.
For SMA revascularization tentatively on 05/24
Assessment / Plan
Assessment / Plan
IMPRESSION:
64M PAD b/l lower ext bypass CAD HTN HLD DM COPD severe stenosis SMA chronic mesenteric ischemia p/w progressive abd pain for two days right sided. Initially symptoms started with nausea and one episode of vomiting. Since then patient has had
reduced oral intake due to pain. Last bowel movement was also two days ago. Denies history of abd surgeries. Patient was notably hypotensive during ED evaluation and received 2L with subsequent improvement noted though pressures remain borderline
low systolic high 80s to 90s, MAP consistently >65. Intermittently tachy to 100 with wbc 19.9 concerning for severe sepsis/shock. Otherwise afebrile, no significant lactic acidosis. Stable respiratory status non-labored. CT abd/pelvis with IV
contrast (no oral) concerning for small bowel enteritis and partial bowel obstruction.
Sepsis with septic shock requiring vasopressors.
Acute ischemic bowel.
Acute hypoxic respiratory insufficiency secondary to atelectasis and volume overload. Requiring nasal cannula oxygen at 4 L.
Metabolic acidosis
SMA and celiac stenosis
Conditions prior to admission:
PAD
-Status post left common femoral endarterectomy with patch angioplasty with bovine pericardium, left SMA to below knee popliteal artery bypass with propaten graft.
CAD
Carotid artery stenosis
COPD
Pulmonary nodule on CT of the chest
Tobacco use disorder.
Sciatica
PLAN:
Acute small bowel ischemia with septic shock
CT angiogram
1. SEVERE WALL THICKENING in the CECUM with adjacent pericecal inflammation and a small amount of adjacent ascites which has increased since 05/18/2024. Mild wall thickening throughout the transverse colon, descending colon, and sigmoid colon
which is most suggestive of an acute colitis (most pronounced in the cecum). Moderate circumferential wall thickening in right lower quadrant ileal loops suggestive of either an acute enteritis or reactive wall thickening. Diagnostic possibilities
are (1) an acute infectious or inflammatory enterocolitis, (2) acute cecal diverticulitis, (3) acute ischemic enterocolitis, or (4) less likely cecal adenocarcinoma.
2. Moderate diverticulosis throughout the sigmoid colon.
3. Severe calcific atherosclerotic plaque in the abdominal aorta, iliac, and femoral arteries with patent bilateral external iliac artery stents and patent left common iliac artery stent in place.
4. Bilateral lower extremity femoral bypass grafts in place which appear patent. Occluded bilateral proximal superficial femoral arteries.
5. Severe greater than 70% diameter stenosis in the superior mesenteric artery, 50-70% diameter stenosis in the celiac artery, and patent inferior mesenteric artery.
6. Moderate diffuse hepatic steatosis.
7. Acute interstitial cardiogenic pulmonary edema.
8. Minimal bilateral pleural effusions
9. Moderate multilevel lumbar discogenic degenerative disease.
Status post exploratory laparotomy and partial cecotomy 05/19.
Postoperative care
Broad-spectrum antibiotics: Zosyn
Has been off pressors.
If BP stable consider remove PICC line
Remains with Merritt catheter
Clear liquid diet. Wean off IV fluids
Analgesia
Incentive spirometry
Acute hypoxic respiratory insufficiency
Likely multifactorial in the settings of atelectasis, sepsis, volume overload with IV fluids required for resuscitation
Echocardiogram 05/20 with normal LV size and function LVEF 55-60%. Mild to moderate TR. Pulmonary artery pressure 52 mmHg
Wean off oxygen as tolerates
Incentive spirometry.
COPD without exacerbation baseline
Tobacco use disorder on nicotine patch
Counseling about quitting
PAD
Carotid artery stenosis.
Status post lower extremity revascularization as above.
Noted with severe greater than 70% stenosis and SMA and celiac artery.
Vascular surgery consultation
CT angio 05/21:
IMPRESSION:
1. Occlusion of the left subclavian artery. Moderate stenosis at the origin of the brachiocephalic artery.
2. Advanced aortic atherosclerotic changes without aneurysmal dilation or flow limiting stenosis. Severe coronary artery calcification.
3. Mild to moderate CHF with very small bilateral effusions with adjacent atelectasis.
4. Emphysema.
5. Secretions/mucous plugging in the left lower lobar bronchus extending into segmental branches.
6. Small volume pneumoperitoneum related to known recent abdominal surgery.
Plan is for SMA revascularization tentatively on 05/23
Plavix resumed. Continue DAPT
CAD.
Essential hypertension.
Echocardiogram as above
Preadmission regimen including metoprolol, Imdur, Norvasc, statin.
Resume metoprolol and Imdur.
Hold Norvasc
Type 2 diabetes
Hemoglobin A1c 6.6
Has been off oral meds acutely
Preadmission regimen metformin, Jardiance, glipizide
Anticipated Discharge: > 48 hours
Subjective/Interval History
-
Date of Service: May 22, 2024
Objective Data
-
Labs:
Laboratory Results
05/22/24
06:47
WBC 11.0 H
Hgb 14.6
Hct 41.1
Plt Count 259
Sodium 137
Potassium 3.6
Chloride 100
Carbon Dioxide 27
BUN 13
Creatinine 0.5 L
Glucose 131 H
Calcium 8.3 L
Vital Signs:
Vital Signs
Temp Pulse Resp BP Pulse Ox
97.4 F 83 16 119/57 95
05/22/24 14:55 05/22/24 14:55 05/22/24 14:55 05/22/24 14:55 05/22/24 14:55
I&O
05/21/24 05/22/24 05/23/24
06:59 06:59 06:59
Intake Total 2160 / 2160 1810 / 1810
Output Total 1300 / 1300 800 / 800
Balance 860 / 860 1010 / 1010
Physical Exam
-
General: Well Developed and No Apparent Distress
HEENT: Normocephalic, Atraumatic and Moist Mucous Membranes
Respiratory: Clear to Auscultation
Cardiac: Regular Rhythm and S1/S2; Negative Murmur, Rub or Gallop
GI: Soft, Nontender, Nondistended and Normal Bowel Sounds; Negative Organomegaly
Rectal: Deferred by Provider
Musculoskeletal: No Clubbing, No Cyanosis and No Edema
Skin: Negative Rash
Neuro: Nonfocal/Grossly Intact
[2024-05-22 16:54] LABS: Glucose - Point of Care 169 mg/dl (70-99)
[2024-05-22] MEDS: TOPROL XL 50 MG PO (18:45)
[2024-05-22] MEDS: LOVENOX 40 MG SC (18:45)
[2024-05-22] MEDS: ROXICODONE 5 MG PO (18:51)
[2024-05-22 21:23] LABS: Glucose - Point of Care 174 mg/dl (70-99)
[2024-05-23 03:17] VITALS: BP 136/66
[2024-05-23] MEDS: ZOSYN 50 IV (05:24)
[2024-05-23] MEDS: TYLENOL 1000 MG PO ×4 (05:25→23:39)
[2024-05-23 06:00] VITALS: BMI 21.2
[2024-05-23 07:25] VITALS: BP 153/66
[2024-05-23 07:30] LABS: Hematocrit 41.3 % (39.0-52.0); Hemoglobin 14.6 g/dL (13.0-18.0); Mean Corp Hgb Conc. 35.4 g/dL (33.0-37.0); Mean Corpuscular Hgb 32.4 pg (27.0-31.0); Mean Corpuscular Volume 91.8 fL (80.0-94.0); Platelet Count 270 10^3/uL (130-400); Red Cell Dist. Width 13.2 % (11.5-14.5); White Blood Cell Count 9.8 10^3/uL (4.8-10.8)
[2024-05-23 07:58] LABS: Blood Urea Nitrogen 9 mg/dl (9-20); Calcium 8.5 mg/dl (8.4-10.2); Carbon Dioxide 28 mmol/L (22-30); Chloride 102 mmol/L (98-107); Estimated Creatinine Clearance > 125 ml/min; Glucose 143 mg/dl (70-99); Magnesium 1.9 mg/dl (1.6-2.3); Phosphorus 2.7 mg/dl (2.5-4.5); Potassium 3.7 mmol/L (3.5-5.1); Sodium 138 mmol/L (135-145); eGFR > 60.00
[2024-05-23] MEDS: STRIVERDI RESPIMAT 2 PUFF INH (08:18)
[2024-05-23] MEDS: SPIRIVA RESPIMAT 2.5 MCG 2 PUFF INH (08:19)
--- NOTE | 2024-05-23 08:56 | W.PN.GS2 ---
Today's Communication / Plan
-
`
Assessment / Plan
-
Assessment: 64 yo male with a h/o PAD with multiple grafts, DM & current smoker who presented with ischemic cecum
POD #4 ex lap with partial cecectomy for small portion of ischemic bowel
AFVSS
returning GI function
Vascular Surgery noted, plan for CTA and possible endovascular intervention pending these findings. From General Surgery perspective OK for trial of clears and possibly fulls this evening.
Plan:
--Full liquid diet today
--Tentative plan for revasc procedure with Vascular Thursday 05/24
Subjective Data
-
Date of Service: May 23, 2024
Patient seen and examined
Reports improving postoperative incisional pain
Tolerating clear liquids
Loose bowel movements this a.m.
Objective Data
-
Intake and Output
05/22/24 05/23/24 05/24/24
06:59 06:59 06:59
Intake Total 1810 / 1810 580 / 580
Output Total 800 / 800
Balance 1010 / 1010 580 / 580
Intake:
Oral fluids 1560 / 1560 480 / 480
IV fluids (Total) 0 / 0
IV piggybacks 250 / 250 100 / 100
Output:
Urine, Voided 800 / 800
Other:
Number of approximated MODERATE 1 4
amounts of urine
Number of approximated LARGE 1
amounts of urine
Vital Signs
Temp Pulse Resp BP Pulse Ox
98.1 F 80 16 153/66 96
05/23/24 07:25 05/23/24 08:23 05/23/24 08:23 05/23/24 07:25 05/23/24 08:23
Lab Results
05/23/24 06:29
05/23/24 06:30
Calcium 8.5 mg/dl (8.4-10.2) 05/23/24 06:30
Phosphorus 2.7 mg/dl (2.5-4.5) 05/23/24 06:30
Magnesium 1.9 mg/dl (1.6-2.3) 05/23/24 06:30
Total Bilirubin 0.7 mg/dl (0.2-1.3) 05/18/24 13:25
AST 23 U/L (17-59) 05/18/24 13:25
ALT 22 U/L (0-50) 05/18/24 13:25
Alkaline Phosphatase 49 U/L (38-126) 05/18/24 13:25
Total Protein 6.6 g/dl (6.3-8.2) 05/18/24 13:25
Albumin 4.2 g/dl (3.5-5.0) 05/18/24 13:25
Physical Exam
-
NAD AAOx3
ABD: Soft, nondistended, incisional tenderness localized. No rebound or guarding
Midline incision with dressing in place
[2024-05-23] MEDS: NOVOLOG FLEXPEN-LOW RESISTANCE 1 UNITS SC (09:00)
[2024-05-23 09:01] LABS: Glucose - Point of Care 157 mg/dl (70-99)
[2024-05-23] MEDS: PROTONIX IV 40 MG IV (09:01)
[2024-05-23] MEDS: NICODERM TRANSDERMAL 21 MG TRANSDERM (09:01)
[2024-05-23] MEDS: ASPIR LOW (ENTERIC COATED) 81 MG PO (09:02)
[2024-05-23] MEDS: PLAVIX 75 MG PO (09:02)
[2024-05-23] MEDS: IMDUR (EXTENDED RELEASE) 60 MG PO ×2 (09:02→20:32)
[2024-05-23] MEDS: NSS (PRESERVATIVE FREE) 10 ML IV (09:02)
--- NOTE | 2024-05-23 09:45 | VNURNOTE ---
[facility] liaison attempted to meet pt at bedside. He was sound asleep. Brochure left at bedside.
[2024-05-23 11:20] VITALS: BP 90/62
--- NOTE | 2024-05-23 12:00 | VNURNOTE ---
Home Health Liaison met with patient at bedside to discuss [facility] nurse/therapy, visits, schedule and homebound status. Patient is agreeable and understands that visits at home will be 2-3 x per week to assess and teach medical management. Patient
stated he had [facility] in August. Patient is aware that [facility] will contact them for start of care in 1-2 days after discharge from .
[facility] referral accepted in [facility].
[2024-05-23 12:43] LABS: Glucose - Point of Care 222 mg/dl (70-99)
[2024-05-23] MEDS: NOVOLOG FLEXPEN-LOW RESISTANCE 2 UNITS SC (14:17)
--- NOTE | 2024-05-23 14:46 | W.PN.HOSP.TC ---
Today's Communication/Plan
-
Ventricular tachycardia on telemetry. Asymptomatic and hemodynamically stable
Check magnesium level.
ECG.
Troponin.
Continue beta-elizabeth.
Stop antibiotics
Full liquid diet
Assessment / Plan
Assessment / Plan
IMPRESSION:
64M PAD b/l lower ext bypass CAD HTN HLD DM COPD severe stenosis SMA chronic mesenteric ischemia p/w progressive abd pain for two days right sided. Initially symptoms started with nausea and one episode of vomiting. Since then patient has had
reduced oral intake due to pain. Last bowel movement was also two days ago. Denies history of abd surgeries. Patient was notably hypotensive during ED evaluation and received 2L with subsequent improvement noted though pressures remain borderline
low systolic high 80s to 90s, MAP consistently >65. Intermittently tachy to 100 with wbc 19.9 concerning for severe sepsis/shock. Otherwise afebrile, no significant lactic acidosis. Stable respiratory status non-labored. CT abd/pelvis with IV
contrast (no oral) concerning for small bowel enteritis and partial bowel obstruction.
Sepsis with septic shock requiring vasopressors.
Acute ischemic bowel.
Acute hypoxic respiratory insufficiency secondary to atelectasis and volume overload. Requiring nasal cannula oxygen at 4 L.
Metabolic acidosis
SMA and celiac stenosis
Conditions prior to admission:
PAD
-Status post left common femoral endarterectomy with patch angioplasty with bovine pericardium, left SMA to below knee popliteal artery bypass with propaten graft.
CAD
Carotid artery stenosis
COPD
Pulmonary nodule on CT of the chest
Tobacco use disorder.
Sciatica
PLAN:
Acute small bowel ischemia with septic shock
CT angiogram
1. SEVERE WALL THICKENING in the CECUM with adjacent pericecal inflammation and a small amount of adjacent ascites which has increased since 05/18/2024. Mild wall thickening throughout the transverse colon, descending colon, and sigmoid colon
which is most suggestive of an acute colitis (most pronounced in the cecum). Moderate circumferential wall thickening in right lower quadrant ileal loops suggestive of either an acute enteritis or reactive wall thickening. Diagnostic possibilities
are (1) an acute infectious or inflammatory enterocolitis, (2) acute cecal diverticulitis, (3) acute ischemic enterocolitis, or (4) less likely cecal adenocarcinoma.
2. Moderate diverticulosis throughout the sigmoid colon.
3. Severe calcific atherosclerotic plaque in the abdominal aorta, iliac, and femoral arteries with patent bilateral external iliac artery stents and patent left common iliac artery stent in place.
4. Bilateral lower extremity femoral bypass grafts in place which appear patent. Occluded bilateral proximal superficial femoral arteries.
5. Severe greater than 70% diameter stenosis in the superior mesenteric artery, 50-70% diameter stenosis in the celiac artery, and patent inferior mesenteric artery.
6. Moderate diffuse hepatic steatosis.
7. Acute interstitial cardiogenic pulmonary edema.
8. Minimal bilateral pleural effusions
9. Moderate multilevel lumbar discogenic degenerative disease.
Status post exploratory laparotomy and partial cecotomy 05/19.
Postoperative care
Broad-spectrum antibiotics: Zosyn completed on 05/23
Full liquid diet
Analgesia
Incentive spirometry
Acute hypoxic respiratory insufficiency
Likely multifactorial in the settings of atelectasis, sepsis, volume overload with IV fluids required for resuscitation
Echocardiogram 05/20 with normal LV size and function LVEF 55-60%. Mild to moderate TR. Pulmonary artery pressure 52 mmHg
Wean off oxygen as tolerates
Incentive spirometry.
COPD without exacerbation baseline
Tobacco use disorder on nicotine patch
Counseling about quitting
PAD
Carotid artery stenosis.
Status post lower extremity revascularization as above.
Noted with severe greater than 70% stenosis and SMA and celiac artery.
Vascular surgery consultation
CT angio 05/21:
IMPRESSION:
1. Occlusion of the left subclavian artery. Moderate stenosis at the origin of the brachiocephalic artery.
2. Advanced aortic atherosclerotic changes without aneurysmal dilation or flow limiting stenosis. Severe coronary artery calcification.
3. Mild to moderate CHF with very small bilateral effusions with adjacent atelectasis.
4. Emphysema.
5. Secretions/mucous plugging in the left lower lobar bronchus extending into segmental branches.
6. Small volume pneumoperitoneum related to known recent abdominal surgery.
Plan is for SMA revascularization tentatively on 05/23
Plavix resumed. Continue DAPT
CAD.
Essential hypertension.
Echocardiogram as above
Preadmission regimen including metoprolol, Imdur, Norvasc, statin.
Resume metoprolol and Imdur.
Hold Norvasc
Ventricular tachycardia on telemetry. Asymptomatic and hemodynamically stable
Check magnesium level.
ECG.
Troponin.
Continue beta-elizabeth
Type 2 diabetes
Hemoglobin A1c 6.6
Has been off oral meds acutely
Preadmission regimen metformin, Jardiance, glipizide
Anticipated Discharge: > 48 hours
Subjective/Interval History
-
Date of Service: May 23, 2024
Objective Data
-
Labs:
Laboratory Results
05/23/24 05/23/24
06:29 06:30
WBC 9.8
Hgb 14.6
Hct 41.3
Plt Count 270
Sodium 138
Potassium 3.7
Chloride 102
Carbon Dioxide 28
BUN 9
Creatinine 0.5 L
Glucose 143 H
Calcium 8.5
Vital Signs:
Vital Signs
Temp Pulse Resp BP Pulse Ox
97.8 F 98 16 90/62 94
05/23/24 11:20 05/23/24 11:20 05/23/24 11:20 05/23/24 11:20 05/23/24 11:20
I&O
05/22/24 05/23/24 05/24/24
06:59 06:59 06:59
Intake Total 1810 / 1810 580 / 580
Output Total 800 / 800
Balance 1010 / 1010 580 / 580
Physical Exam
-
General: Well Developed and No Apparent Distress
HEENT: Normocephalic, Atraumatic and Moist Mucous Membranes
Respiratory: Clear to Auscultation
Cardiac: Regular Rhythm and S1/S2; Negative Murmur, Rub or Gallop
GI: Soft, Nontender, Nondistended and Normal Bowel Sounds; Negative Organomegaly
Rectal: Deferred by Provider
Musculoskeletal: No Clubbing, No Cyanosis and No Edema
Skin: Negative Rash
Neuro: Nonfocal/Grossly Intact
[2024-05-23 15:49] VITALS: BP 92/74
[2024-05-23 17:26] LABS: Glucose - Point of Care 140 mg/dl (70-99)
[2024-05-23 17:50] LABS: Troponin I 0.027 ng/ml
[2024-05-23] MEDS: NOVOLOG FLEXPEN-LOW RESISTANCE SC (17:50)
[2024-05-23] MEDS: LOVENOX 40 MG SC (18:45)
[2024-05-23] MEDS: TOPROL XL PO (18:45)
[2024-05-23 19:34] VITALS: BP 147/70
[2024-05-23] MEDS: ROXICODONE 10 MG PO (20:33)
[2024-05-23 21:28] LABS: Glucose - Point of Care 168 mg/dl (70-99)
[2024-05-23 22:41] VITALS: BP 148/66
[2024-05-24] VITALS (21 sets, daily range): BP systolic 96–161; BP diastolic 47–71; BMI 21.0
[2024-05-24] MEDS: ROXICODONE 10 MG PO (02:04)
[2024-05-24] MEDS: DILAUDID 0.5 MG IV ×3 (04:33→17:19)
[2024-05-24] MEDS: FLUSH (NSS) 2 FLUSH IV (04:34)
[2024-05-24] MEDS: TYLENOL 1000 MG PO ×3 (04:34→22:13)
[2024-05-24 06:24] LABS: Hematocrit 40.1 % (39.0-52.0); Mean Corp Hgb Conc. 34.9 g/dL (33.0-37.0); Mean Corpuscular Hgb 32.6 pg (27.0-31.0); Mean Corpuscular Volume 93.3 fL (80.0-94.0); Mean Platelet Volume 9.1 fL (7.4-10.4); Platelet Count 287 10^3/uL (130-400); Red Cell Dist. Width 13.2 % (11.5-14.5); White Blood Cell Count 11.1 10^3/uL (4.8-10.8)
[2024-05-24 06:57] LABS: Blood Urea Nitrogen 8 mg/dl (9-20); Calcium 8.6 mg/dl (8.4-10.2); Carbon Dioxide 31 mmol/L (22-30); Chloride 100 mmol/L (98-107); Estimated Creatinine Clearance > 125 ml/min; Glucose 135 mg/dl (70-99); Phosphorus 3.4 mg/dl (2.5-4.5); Sodium 139 mmol/L (135-145); eGFR > 60.00
[2024-05-24] MEDS: SPIRIVA RESPIMAT 2.5 MCG 2 PUFF INH (07:29)
[2024-05-24] MEDS: STRIVERDI RESPIMAT 2 PUFF INH (07:29)
[2024-05-24 07:56] LABS: Glucose - Point of Care 159 mg/dl (70-99)
[2024-05-24] MEDS: IMDUR (EXTENDED RELEASE) 60 MG PO ×2 (08:27→19:52)
[2024-05-24] MEDS: ASPIR LOW (ENTERIC COATED) 81 MG PO (08:27)
[2024-05-24] MEDS: PLAVIX 75 MG PO (08:27)
[2024-05-24] MEDS: NICODERM TRANSDERMAL 21 MG TRANSDERM (08:27)
[2024-05-24] MEDS: NSS (PRESERVATIVE FREE) 10 ML IV (08:28)
[2024-05-24] MEDS: PROTONIX IV 40 MG IV (08:28)
[2024-05-24] MEDS: NOVOLOG FLEXPEN-LOW RESISTANCE SC ×3 (08:31→18:01)
[2024-05-24] MEDS: BACTROBAN 2% OINTMENT 1 APPLIC NASAL (08:39)
[2024-05-24] MEDS: PERIDEX 0.12% ORAL RINSE 15 ML PO (08:39)
--- NOTE | 2024-05-24 09:34 | W.PN.GS2 ---
Addendum entered and electronically signed by Gerhard Griggs MD 05/24/24 09:53:
Patient seen and examined. Agree with assessment plan as documented below.
No significant new complaints. Reports continued abdominal distention. Reports passing loose, nonbloody stool. No significant flatus. Denies nausea or vomiting.
Gen: NAD
Abd: soft, mild/moderate tenderness, distended, non-peritoneal, midline with staining, no active drainage
64 yo male with a h/o PAD with multiple grafts, DM & current smoker who presented with ischemic cecum
POD #5 ex lap with partial cecectomy for small portion of ischemic bowel
AFVSS
Returning GI function but with distention/tenderness
Vascular Surgery plan noted, CTA and plan for endovascular intervention today.
Plan:
--NPO for vascular procedure, would continue with bowel rest post-procedure
--Pain management as needed
Original Note:
Today's Communication / Plan
-
NPO for OR
Assessment / Plan
-
Assessment: 64 yo male with a h/o PAD with multiple grafts, DM & current smoker who presented with ischemic cecum
POD #5 ex lap with partial cecectomy for small portion of ischemic bowel
AFVSS
returning GI function but with distention/tenderness
Vascular Surgery plan noted, CTA and possible endovascular intervention today.
Plan:
--NPO for vascular procedure, ?tentative ok for clears post op
--Pain management as needed
Subjective Data
-
Date of Service: May 24, 2024
Patient seen and examined at bedside with Dr. Griggs. Denies n/v. Passing some flatus. Abdominal discomfort persists.
Objective Data
-
Intake and Output
05/23/24 05/24/24 05/25/24
06:59 06:59 06:59
Intake Total 580 / 580 720 / 720
Balance 580 / 580 720 / 720
Intake:
Oral fluids 480 / 480 720 / 720
IV piggybacks 100 / 100
Other:
Number of approximated MODERATE 4 3
amounts of urine
Vital Signs
Temp Pulse Resp BP Pulse Ox
97.7 F 74 18 142/67 91
05/24/24 07:50 05/24/24 07:50 05/24/24 07:50 05/24/24 07:50 05/24/24 07:50
Lab Results
05/24/24 05:27
05/24/24 05:27
Calcium 8.6 mg/dl (8.4-10.2) 05/24/24 05:27
Phosphorus 3.4 mg/dl (2.5-4.5) 05/24/24 05:27
Magnesium 2.0 mg/dl (1.6-2.3) 05/24/24 05:27
Total Bilirubin 0.7 mg/dl (0.2-1.3) 05/18/24 13:25
AST 23 U/L (17-59) 05/18/24 13:25
ALT 22 U/L (0-50) 05/18/24 13:25
Alkaline Phosphatase 49 U/L (38-126) 05/18/24 13:25
Total Protein 6.6 g/dl (6.3-8.2) 05/18/24 13:25
Albumin 4.2 g/dl (3.5-5.0) 05/18/24 13:25
Physical Exam
-
NAD AAOx3
ABD: Soft, mildly distended, incisional tenderness localized. No rebound or guarding
Midline incision with dressing in place
--- NOTE | 2024-05-24 09:45 | CM ---
Chart reviewed.
Patient off floor vascular OR
[facility]
PLAN: home with [facility]
[2024-05-24] MEDS: TYLENOL PO (11:11)
--- NOTE | 2024-05-24 11:41 | PTOTSP ---
Reviewed chart. Pt in OR today for SMA stent by vascular service. Will hold PT and pt will need new orders post-op when stable to resume activity.
[2024-05-24 13:14] LABS: Glucose - Point of Care 151 mg/dl (70-99)
[2024-05-24 15:36] LABS: ACT-LR - POC 219 Seconds (116-155)
--- NOTE | 2024-05-24 16:09 | W.PN.HOSP.TC ---
Today's Communication/Plan
-
For SMA revascularization procedure today
Assessment / Plan
Assessment / Plan
IMPRESSION:
64M PAD b/l lower ext bypass CAD HTN HLD DM COPD severe stenosis SMA chronic mesenteric ischemia p/w progressive abd pain for two days right sided. Initially symptoms started with nausea and one episode of vomiting. Since then patient has had
reduced oral intake due to pain. Last bowel movement was also two days ago. Denies history of abd surgeries. Patient was notably hypotensive during ED evaluation and received 2L with subsequent improvement noted though pressures remain borderline
low systolic high 80s to 90s, MAP consistently >65. Intermittently tachy to 100 with wbc 19.9 concerning for severe sepsis/shock. Otherwise afebrile, no significant lactic acidosis. Stable respiratory status non-labored. CT abd/pelvis with IV
contrast (no oral) concerning for small bowel enteritis and partial bowel obstruction.
Sepsis with septic shock requiring vasopressors.
Acute ischemic bowel.
Acute hypoxic respiratory insufficiency secondary to atelectasis and volume overload. Requiring nasal cannula oxygen at 4 L.
Metabolic acidosis
SMA and celiac stenosis
Conditions prior to admission:
PAD
-Status post left common femoral endarterectomy with patch angioplasty with bovine pericardium, left SMA to below knee popliteal artery bypass with propaten graft.
CAD
Carotid artery stenosis
COPD
Pulmonary nodule on CT of the chest
Tobacco use disorder.
Sciatica
PLAN:
Acute small bowel ischemia with septic shock
CT angiogram
1. SEVERE WALL THICKENING in the CECUM with adjacent pericecal inflammation and a small amount of adjacent ascites which has increased since 05/18/2024. Mild wall thickening throughout the transverse colon, descending colon, and sigmoid colon
which is most suggestive of an acute colitis (most pronounced in the cecum). Moderate circumferential wall thickening in right lower quadrant ileal loops suggestive of either an acute enteritis or reactive wall thickening. Diagnostic possibilities
are (1) an acute infectious or inflammatory enterocolitis, (2) acute cecal diverticulitis, (3) acute ischemic enterocolitis, or (4) less likely cecal adenocarcinoma.
2. Moderate diverticulosis throughout the sigmoid colon.
3. Severe calcific atherosclerotic plaque in the abdominal aorta, iliac, and femoral arteries with patent bilateral external iliac artery stents and patent left common iliac artery stent in place.
4. Bilateral lower extremity femoral bypass grafts in place which appear patent. Occluded bilateral proximal superficial femoral arteries.
5. Severe greater than 70% diameter stenosis in the superior mesenteric artery, 50-70% diameter stenosis in the celiac artery, and patent inferior mesenteric artery.
6. Moderate diffuse hepatic steatosis.
7. Acute interstitial cardiogenic pulmonary edema.
8. Minimal bilateral pleural effusions
9. Moderate multilevel lumbar discogenic degenerative disease.
Status post exploratory laparotomy and partial cecotomy 05/19.
Postoperative care
Broad-spectrum antibiotics: Zosyn completed on 05/23
Full liquid diet
Analgesia
Incentive spirometry
PAD
Carotid artery stenosis.
Status post lower extremity revascularization as above.
Noted with severe greater than 70% stenosis and SMA and celiac artery.
Vascular surgery consultation
CT angio 05/21:
IMPRESSION:
1. Occlusion of the left subclavian artery. Moderate stenosis at the origin of the brachiocephalic artery.
2. Advanced aortic atherosclerotic changes without aneurysmal dilation or flow limiting stenosis. Severe coronary artery calcification.
3. Mild to moderate CHF with very small bilateral effusions with adjacent atelectasis.
4. Emphysema.
5. Secretions/mucous plugging in the left lower lobar bronchus extending into segmental branches.
6. Small volume pneumoperitoneum related to known recent abdominal surgery.
Plan is for SMA revascularization on 05/23
Acute hypoxic respiratory insufficiency
Likely multifactorial in the settings of atelectasis, sepsis, volume overload with IV fluids required for resuscitation
Echocardiogram 05/20 with normal LV size and function LVEF 55-60%. Mild to moderate TR. Pulmonary artery pressure 52 mmHg
Wean off oxygen as tolerates
Incentive spirometry.
COPD without exacerbation baseline
Tobacco use disorder on nicotine patch
Counseling about quitting
Plavix resumed. Continue DAPT
CAD.
Essential hypertension.
Echocardiogram as above
Preadmission regimen including metoprolol, Imdur, Norvasc, statin.
Resume metoprolol and Imdur.
Hold Norvasc
Ventricular tachycardia on telemetry. Asymptomatic and hemodynamically stable
Check magnesium level.
ECG.
Troponin.
Continue beta-elizabeth
Type 2 diabetes
Hemoglobin A1c 6.6
Has been off oral meds acutely
Preadmission regimen metformin, Jardiance, glipizide
Anticipated Discharge: > 48 hours
Subjective/Interval History
-
Date of Service: May 24, 2024
Objective Data
-
Labs:
Laboratory Results
05/24/24
05:27
WBC 11.1 H
Hgb 14.0
Hct 40.1
Plt Count 287
Sodium 139
Potassium 4.0
Chloride 100
Carbon Dioxide 31 H
BUN 8 L
Creatinine 0.6 L
Glucose 135 H
Calcium 8.6
Vital Signs:
Vital Signs
Temp Pulse Resp BP Pulse Ox
97.7 F 74 16 141/63 92
05/24/24 07:50 05/24/24 12:22 05/24/24 12:22 05/24/24 12:22 05/24/24 12:22
I&O
05/23/24 05/24/24 05/25/24
06:59 06:59 06:59
Intake Total 580 / 580 720 / 720
Output Total 180 / 180
Balance 580 / 580 720 / 720 -180 / -180
Physical Exam
-
General: Well Developed and No Apparent Distress
HEENT: Normocephalic, Atraumatic and Moist Mucous Membranes
Respiratory: Clear to Auscultation
Cardiac: Regular Rhythm and S1/S2; Negative Murmur, Rub or Gallop
GI: Soft, Nontender, Nondistended and Normal Bowel Sounds; Negative Organomegaly
Rectal: Deferred by Provider
Musculoskeletal: No Clubbing, No Cyanosis and No Edema
Skin: Negative Rash
Neuro: Nonfocal/Grossly Intact
[2024-05-24 16:33] LABS: Glucose - Point of Care 196 mg/dl (70-99)
[2024-05-24 16:48] LABS: Hematocrit 39.7 % (39.0-52.0); Hemoglobin 14.1 g/dL (13.0-18.0); Mean Corp Hgb Conc. 35.5 g/dL (33.0-37.0); Mean Corpuscular Hgb 32.2 pg (27.0-31.0); Mean Corpuscular Volume 90.6 fL (80.0-94.0); Mean Platelet Volume 9.4 fL (7.4-10.4); Platelet Count 328 10^3/uL (130-400); Red Blood Cell Count 4.38 10^6/uL (4.70-6.10); Red Cell Dist. Width 13.6 % (11.5-14.5); White Blood Cell Count 11.5 10^3/uL (4.8-10.8)
[2024-05-24] MEDS: NOVOLOG vial 1 UNITS SC (17:03)
--- NOTE | 2024-05-24 17:05 | OR.RPT ---
Operative Report
Operative Report
Date of Operation: 05/24/2024
Pre Op Diagnosis:
1.) Chronic mesenteric ischemia with heavily calcified high-grade stenosis of the proximal superior mesenteric artery
2.) Heavily calcified left subclavian artery occlusion
Post Op Diagnosis:
1.) Chronic mesenteric ischemia with heavily calcified high-grade stenosis of the proximal superior mesenteric artery
2.) Heavily calcified left subclavian artery occlusion
Procedure:
1.) Intravascular lithotripsy to left subclavian artery occlusion (9 mm x 30 mm L6 shockwave balloon)
2.) Balloon angioplasty and stenting of left subclavian artery (7 mm x 39 mm [place] VBX stent; postdilated with 10 mm angioplasty balloon)
3.) Intravascular lithotripsy to superior mesenteric artery stenosis (9 mm x 30 mm L6 shockwave balloon)
4.) Balloon angioplasty and stenting of proximal superior mesenteric artery (7 mm x 22 mm iCast stent; postdilated with 8 mm angioplasty balloon)
5.) Cutdown and exposure of left brachial artery for endovascular access; primary repair of brachial artery at conclusion of the case
6.) Diagnostic left upper extremity arteriogram
7.) Diagnostic aortogram
8.) Diagnostic mesenteric arteriogram
9.) Selective catheterization of superior mesenteric artery from left brachial artery approach
Surgeon: Esvin Merritt III, MD
[employer]ry Metallurgist: Anjali Miller MD PGY-8
Anesthesia: Sedation with local
Fluoroscopy:
40.8 min
1229 mGy
224.60 Gy.cm2
Complications: None
Estimated Blood Loss: 20 cc
History and Indications for Procedure: 64-year-old male with diffuse calcified peripheral arterial occlusive disease. He recently underwent exploratory laparotomy and partial cecectomy for necrotic cecum. Workup at that time revealed a heavily
calcified high-grade stenosis of the proximal superior mesenteric artery. He was also noted to have a large gradient between his left and right brachial artery pressures. Workup for access sites for mesenteric artery intervention revealed heavily
calcified occlusive disease in the left subclavian artery.
Procedure in Detail: Shreyas Bardales was correctly identified and placed supine on the operating table. After adequate induction of anesthesia the left arm was abducted 90 degrees on an armboard. The left arm and bilateral groins were prepped and
draped in the usual sterile fashion. A timeout was performed with the nursing and anesthesia staff confirming the patient's identity as well as the nature and laterality of the procedure.
An incision was made over the brachial artery just proximal to the antecubital fossa. Electrocautery and sharp dissection were used to expose the brachial artery. Proximal and distal control were obtained with vessel loops. Systemic heparin was
administered. The brachial artery was punctured under direct visualization with a micropuncture needle. We then upsized to a 5 Mongolian sheath over a [employer] wire. A Quickcross catheter and Glidewire were then navigated retrograde to the proximal
left subclavian artery. A diagnostic arteriogram was performed which demonstrated a heavily calcified occlusion of the proximal left subclavian artery. The vertebral artery was patent. The mid and distal subclavian artery segments were patent.
The axillary artery was patent.
Using the Quickcross catheter and Glidewire we were able to cross the calcified occlusion in the proximal left subclavian artery. The wire and catheter were then advanced to the distal aortic arch and into the descending thoracic aorta. The wire
was exchanged out for an Amplatz wire. A 7 Mongolian 70 cm sheath was then carefully advanced across the calcified occlusion in the left subclavian artery. A diagnostic arteriogram was performed demonstrating that our sheath was in the true lumen of
the aorta. The wire was exchanged out for a V18. Due to the heavily calcified nature of the subclavian artery disease and in an effort to modify the calcium to achieve maximum luminal gain with endovascular intervention I elected to proceed with
intravascular lithotripsy. A 9 mm x 30 mm Shockwave balloon was placed across the stenosis under roadmap guidance. Alternating rounds of lithotripsy pulse delivery at sub-nominal pressure and angioplasty at nominal pressure was performed across the
stenosis. In between rounds of pulse delivery and angioplasty the balloon was deflated and repositioned under roadmap guidance. All 300 pulses were delivered.
Subsequent arteriogram demonstrated an improved result. I then brought into position a 7 mm x 39 mm [place] VBX stent. This was positioned in the desired location under roadmap guidance and deployed. I then postdilated the stent with a 10 mm x 20 mm
angioplasty balloon. Subsequent arteriogram demonstrated an excellent technical result with a patent left subclavian artery. No significant residual stenosis was identified in the stent. Left vertebral artery flow was antegrade. The axillary
artery was patent with no stenosis identified.
Next we focused our attention on the superior mesenteric artery. I exchanged back out for the Amplatz wire. The 7 Mongolian sheath was advanced to the abdominal aorta. A pigtail catheter was placed. In a steep right oblique projection an aortogram
was performed. Heavily calcified celiac artery stenosis at the origin was identified. A heavily calcified high-grade stenosis of the superior mesenteric artery was identified. Under roadmap guidance using a Glidewire and a angled tip catheter we
selected the superior mesenteric artery. The catheter was then advanced over the wire to the mid superior mesenteric artery. An arteriogram confirmed proper position in the true lumen of the SMA. I then exchanged out for a V18 wire. Due to the
heavily calcified nature of the superior mesenteric artery disease and in an effort to modify the calcium to achieve maximum luminal gain with endovascular intervention I elected to proceed with intravascular lithotripsy. A 9 mm x 30 mm Shockwave
balloon was placed across the stenosis under roadmap guidance. Alternating rounds of lithotripsy pulse delivery at sub-nominal pressure and angioplasty at nominal pressure was performed across the stenosis. In between rounds of pulse delivery and
angioplasty the balloon was deflated and repositioned under roadmap guidance. All 300 pulses were delivered.
Subsequent arteriogram demonstrated a significantly improved result. I then brought into position a 7 mm x 22 mm iCast stent. This was positioned across the origin of the superior mesenteric artery under roadmap guidance where the calcified plaque
was present. The stent was then deployed in the desired location. The stent was then postdilated with an 8 mm angioplasty balloon. Subsequent arteriogram demonstrated an excellent technical result. The superior mesenteric artery stent was widely
patent. There was no residual stenosis identified. The superior mesenteric artery was widely patent with brisk flow. No other areas of stenosis or filling defects were identified.
Satisfied with this result we concluded the procedure. The sheath tip was pulled back into the left brachial artery. The wire was removed. The sheath was removed from the left brachial artery. The vessel loops were temporarily released to allow
the brachial artery to forward bleed and backbleed. There was brisk pulsatile bleeding from the proximal brachial artery. The brachial artery was repaired with 3 interrupted 7-0 Prolene sutures. The vessel loops were then released. There was a
strong pulse in the brachial artery proximal and distal to the repair. The suture line was closely inspected for hemostasis which was achieved. The wound was then irrigated with saline solution. Hemostasis was achieved in the wound bed with
electrocautery. The wound was then closed in layers and sterile dressings were applied. The patient had an easily palpable left radial pulse at the conclusion of the case (nonpalpable preop).
The patient tolerated the procedure well and was taken to the recovery area in stable condition.
Attestation: I was present and responsible for the entire procedure.
Signed:
Esvin Merritt III, MD
[facility]
[phone] (jhmf)
[2024-05-24 17:23] LABS: Blood Urea Nitrogen 9 mg/dl (9-20); Calcium 8.4 mg/dl (8.4-10.2); Carbon Dioxide 28 mmol/L (22-30); Chloride 102 mmol/L (98-107); Estimated Creatinine Clearance > 125 ml/min; Glucose 173 mg/dl (70-99); Potassium 4.3 mmol/L (3.5-5.1); Sodium 140 mmol/L (135-145); eGFR > 60.00
[2024-05-24] MEDS: TOPROL XL 50 MG PO (18:29)
[2024-05-24] MEDS: LOVENOX 40 MG SC (18:29)
--- NOTE | 2024-05-24 18:33 | PTCARENOTE ---
Pt returned from PACU in bed. Strict activity order to keep LUE straight reviewed with pt, pt verbalized understanding. Pt noted to have small hematoma on the medial (underside) of his incision. Area noted to be raised, ecchymotic, and firm to
palpation. Pressure DSG in place and to remain on overnight per Dr Merritt. LUE Neurovascular assessment otherwise WDL, + radial pulse, strength equal B/L. 15 min site/ NV checks completed per [employer]. This RN to initiate q30 checks. Pt noted to be
attempting to bend LUE, LUE elevated, resting on pillows. Activity restriction again reviewed with pt. IVF infusing per order. LUE incision C/D/I, glued and maintained in pressure DSG. Bed locked and in the lowest position, safety maintained.
Oriented to room and call woodard.
[2024-05-24] MEDS: NSS 500 IV (19:51)
[2024-05-24] MEDS: ROXICODONE 5 MG PO (21:24)
[2024-05-24 21:42] LABS: Glucose - Point of Care 290 mg/dl (70-99)
[2024-05-25] VITALS (7 sets, daily range): BP systolic 98–125; BP diastolic 49–64
[2024-05-25] MEDS: TYLENOL 1000 MG PO ×3 (05:08→22:08)
[2024-05-25] MEDS: ROXICODONE 5 MG PO ×2 (05:09→22:08)
--- NOTE | 2024-05-25 06:24 | W.PN.HOSP.TC ---
Today's Communication/Plan
-
diet advance as per surgery
ok to dc iron assorter
PT/OT re-eval
glycemic control
Assessment / Plan
Assessment / Plan
Physical Exam
General: Well Developed and No Apparent Distress
HEENT: Normocephalic, Atraumatic and Moist Mucous Membranes
Respiratory: Clear to Auscultation
Cardiac: Regular Rhythm and S1/S2; Negative Murmur, Rub or Gallop
GI: Soft, Nontender, Nondistended and Normal Bowel Sounds; Negative Organomegaly
Musculoskeletal: No Clubbing, No Cyanosis and No Edema
Skin: Negative Rash
Neuro: Nonfocal/Grossly Intact
IMPRESSION:
64M PAD b/l lower ext bypass CAD HTN HLD DM COPD severe stenosis SMA chronic mesenteric ischemia p/w progressive abd pain for two days right sided. Initially symptoms started with nausea and one episode of vomiting. Since then patient has had
reduced oral intake due to pain. Last bowel movement was also two days ago. Denies history of abd surgeries. Patient was notably hypotensive during ED evaluation and received 2L with subsequent improvement noted though pressures remain borderline
low systolic high 80s to 90s, MAP consistently >65. Intermittently tachy to 100 with wbc 19.9 concerning for severe sepsis/shock. Otherwise afebrile, no significant lactic acidosis. Stable respiratory status non-labored. CT abd/pelvis with IV
contrast (no oral) concerning for small bowel enteritis and partial bowel obstruction.
Sepsis with septic shock requiring vasopressors.
Acute ischemic bowel.
Acute hypoxic respiratory insufficiency secondary to atelectasis and volume overload. Requiring nasal cannula oxygen at 4 L.
Metabolic acidosis
SMA and celiac stenosis
Conditions prior to admission:
PAD
-Status post left common femoral endarterectomy with patch angioplasty with bovine pericardium, left SMA to below knee popliteal artery bypass with propaten graft.
CAD
Carotid artery stenosis
COPD
Pulmonary nodule on CT of the chest
Tobacco use disorder.
Sciatica
PLAN:
Acute small bowel ischemia with septic shock
CT angiogram
1. SEVERE WALL THICKENING in the CECUM with adjacent pericecal inflammation and a small amount of adjacent ascites which has increased since 05/18/2024. Mild wall thickening throughout the transverse colon, descending colon, and sigmoid colon
which is most suggestive of an acute colitis (most pronounced in the cecum). Moderate circumferential wall thickening in right lower quadrant ileal loops suggestive of either an acute enteritis or reactive wall thickening. Diagnostic possibilities
are (1) an acute infectious or inflammatory enterocolitis, (2) acute cecal diverticulitis, (3) acute ischemic enterocolitis, or (4) less likely cecal adenocarcinoma.
2. Moderate diverticulosis throughout the sigmoid colon.
3. Severe calcific atherosclerotic plaque in the abdominal aorta, iliac, and femoral arteries with patent bilateral external iliac artery stents and patent left common iliac artery stent in place.
4. Bilateral lower extremity femoral bypass grafts in place which appear patent. Occluded bilateral proximal superficial femoral arteries.
5. Severe greater than 70% diameter stenosis in the superior mesenteric artery, 50-70% diameter stenosis in the celiac artery, and patent inferior mesenteric artery.
6. Moderate diffuse hepatic steatosis.
7. Acute interstitial cardiogenic pulmonary edema.
8. Minimal bilateral pleural effusions
9. Moderate multilevel lumbar discogenic degenerative disease.
Status post exploratory laparotomy and partial cecotomy 05/19.
Postoperative care
Broad-spectrum antibiotics: Zosyn completed on 05/23
Full liquid diet advanced to regular as per surgery
Analgesia
Incentive spirometry
PAD
Carotid artery stenosis.
Status post lower extremity revascularization as above.
Noted with severe greater than 70% stenosis and SMA and celiac artery.
Vascular surgery consultation
CT angio 05/21:
IMPRESSION:
1. Occlusion of the left subclavian artery. Moderate stenosis at the origin of the brachiocephalic artery.
2. Advanced aortic atherosclerotic changes without aneurysmal dilation or flow limiting stenosis. Severe coronary artery calcification.
3. Mild to moderate CHF with very small bilateral effusions with adjacent atelectasis.
4. Emphysema.
5. Secretions/mucous plugging in the left lower lobar bronchus extending into segmental branches.
6. Small volume pneumoperitoneum related to known recent abdominal surgery.
Plan is for SMA revascularization on 05/23
Acute hypoxic respiratory insufficiency
Likely multifactorial in the settings of atelectasis, sepsis, volume overload with IV fluids required for resuscitation
Echocardiogram 05/20 with normal LV size and function LVEF 55-60%. Mild to moderate TR. Pulmonary artery pressure 52 mmHg
Weaned off oxygen supplementation, stable respiratory status on room air
Incentive spirometry.
COPD without exacerbation baseline
Tobacco use disorder on nicotine patch
Counseling about quitting
Plavix resumed. Continue DAPT
CAD.
Essential hypertension.
Echocardiogram as above
Preadmission regimen including metoprolol, Imdur, Norvasc, statin.
Resume metoprolol and Imdur.
Hold Norvasc, bp well controlled at this time without
Ventricular tachycardia on telemetry. Asymptomatic and hemodynamically stable
Mg wnl
ECG.
Troponin wnl
Continue beta-elizabeth
Type 2 diabetes
Hemoglobin A1c 6.6
Has been off oral meds acutely
Preadmission regimen metformin, Jardiance, glipizide
Metformin Jardiance to resume tomorrow, cont hold glipizide for now
I spent a total of 40 minutes with the patient or on the floor. More than 50% of this time involved counseling and coordination of care.
Anticipated Discharge: Within 24 hours
Subjective/Interval History
-
Date of Service: May 25, 2024
reports overall feeling well. Noted ambulating well with walker. Denies new acute issues at this time.
Objective Data
-
Labs:
Laboratory Results
05/25/24
06:00
WBC Pending
Hgb Pending
Hct Pending
Plt Count Pending
PT Pending
INR Pending
APTT Pending
Sodium Pending
Potassium Pending
Chloride Pending
Carbon Dioxide Pending
BUN Pending
Creatinine Pending
Glucose Pending
Calcium Pending
Vital Signs:
Vital Signs
Temp Pulse Resp BP Pulse Ox
97.6 F 58 16 117/64 98
05/25/24 04:02 05/25/24 04:02 05/25/24 04:02 05/25/24 04:02 05/25/24 04:02
I&O
05/23/24 05/24/24 05/25/24
06:59 06:59 06:59
Intake Total 580 / 580 720 / 720 300 / 300
Output Total 180 / 180
Balance 580 / 580 720 / 720 120 / 120
--- NOTE | 2024-05-25 07:24 | W.PN.VS ---
Today's Communication / Plan
-
as above
Assessment/Plan
-
POD 1 s/p left subclavian a and SMA stent
-Ok to advance diet from vascular standpoint
-Pressure dressing removed
-Cont n/v checks
Subjective Data
-
Date of Service: May 25, 2024
No acute events. Says he is hungry and wants solid food. No hand complaints.
Objective Data
-
Vital Signs
Temp Pulse Resp BP Pulse Ox
97.6 F 58 16 117/64 98
05/25/24 04:02 05/25/24 04:02 05/25/24 04:02 05/25/24 04:02 05/25/24 04:02
Intake and Output
05/24/24 05/25/24 05/26/24
06:59 06:59 06:59
Intake Total 720 / 720 1280 / 1280
Output Total 880 / 880
Balance 720 / 720 400 / 400
Intake:
Oral fluids 720 / 720 480 / 480
IV fluids (Total) 800 / 800
Normosol 300 / 300
Output:
Urine, Voided 880 / 880
Other:
Number of approximated MODERATE 3 2
amounts of urine
Calcium 8.4 mg/dl (8.4-10.2) 05/24/24 16:39
Phosphorus 3.4 mg/dl (2.5-4.5) 05/24/24 05:27
Magnesium 2.0 mg/dl (1.6-2.3) 05/24/24 05:27
Total Bilirubin 0.7 mg/dl (0.2-1.3) 05/18/24 13:25
AST 23 U/L (17-59) 05/18/24 13:25
ALT 22 U/L (0-50) 05/18/24 13:25
Alkaline Phosphatase 49 U/L (38-126) 05/18/24 13:25
Total Protein 6.6 g/dl (6.3-8.2) 05/18/24 13:25
Albumin 4.2 g/dl (3.5-5.0) 05/18/24 13:25
Physical Exam
-
NAD
Abdomen soft, non tender, non distended
L arm incision c/d/i, +2 radial pulse
[2024-05-25] MEDS: STRIVERDI RESPIMAT 2 PUFF INH (07:46)
[2024-05-25] MEDS: SPIRIVA RESPIMAT 2.5 MCG 2 PUFF INH (07:46)
[2024-05-25] MEDS: ASPIR LOW (ENTERIC COATED) 81 MG PO (08:05)
[2024-05-25] MEDS: NICODERM TRANSDERMAL 21 MG TRANSDERM (08:05)
[2024-05-25] MEDS: IMDUR (EXTENDED RELEASE) 60 MG PO ×2 (08:05→19:50)
[2024-05-25] MEDS: PLAVIX 75 MG PO (08:05)
[2024-05-25] MEDS: PROTONIX IV 40 MG IV (08:07)
[2024-05-25] MEDS: NSS (PRESERVATIVE FREE) 10 ML IV (08:08)
[2024-05-25 09:09] LABS: Hematocrit 39.4 % (39.0-52.0); Hemoglobin 13.4 g/dL (13.0-18.0); Mean Corpuscular Hgb 32.4 pg (27.0-31.0); Mean Corpuscular Volume 95.2 fL (80.0-94.0); Mean Platelet Volume 8.9 fL (7.4-10.4); Platelet Count 289 10^3/uL (130-400); Red Blood Cell Count 4.14 10^6/uL (4.70-6.10); Red Cell Dist. Width 13.4 % (11.5-14.5); White Blood Cell Count 10.1 10^3/uL (4.8-10.8)
[2024-05-25 09:10] LABS: Glucose - Point of Care 282 mg/dl (70-99)
[2024-05-25 09:13] LABS: APTT 27.5 Sec (23.4-35.0); INR 1.03; PT 13.3 Sec (11.4-14.6)
[2024-05-25 09:47] LABS: Blood Urea Nitrogen 9 mg/dl (9-20); Calcium 8.6 mg/dl (8.4-10.2); Carbon Dioxide 32 mmol/L (22-30); Chloride 100 mmol/L (98-107); Estimated Creatinine Clearance > 125 ml/min; Glucose 139 mg/dl (70-99); Magnesium 2.1 mg/dl (1.6-2.3); Phosphorus 3.6 mg/dl (2.5-4.5); Potassium 4.3 mmol/L (3.5-5.1); Sodium 139 mmol/L (135-145); eGFR > 60.00
[2024-05-25] MEDS: NOVOLOG FLEXPEN-LOW RESISTANCE 3 UNITS SC (10:16)
[2024-05-25 12:18] LABS: Glucose - Point of Care 235 mg/dl (70-99)
[2024-05-25] MEDS: NOVOLOG FLEXPEN-LOW RESISTANCE 2 UNITS SC (12:33)
--- NOTE | 2024-05-25 12:53 | W.PN.GS2 ---
Addendum entered and electronically signed by Lucho Thomson MD 05/25/24 13:30:
I saw and examined the patient.
The TMR TEACHER's note was reviewed and I agree with the note.
Comment:
Feeling well today. Passing flatus and BMs. Pain controlled. OOB.
AFVSS, ABD soft, nondistended, nontender, incision well-approximated without drainage or erythema
� Advance to diabetic diet
� Continue pain control with Tylenol, oxycodone and Dilaudid as needed
� Continue home medications
� Appreciate vascular
� Off antibiotics, no fevers, normal WBC
� Appreciate hospitalist
�Appreciate PT for dispo recs
Dispo�hopeful DC by tomorrow
Original Note:
Today's Communication / Plan
-
Advance diet
Assessment / Plan
-
Assessment: 64 yo male with a h/o PAD with multiple grafts, DM & current smoker who presented with ischemic cecum
POD #6 ex lap with partial cecectomy for small portion of ischemic bowel
POD #1 eft subclavian a and SMA stent with vascular surgery
AFVSS
+flatus/stool
Plan:
--Advance to diabetic diet
--Pain management as needed
--OOB Ambulate
--Medical management as per primary team
Subjective Data
-
Date of Service: May 25, 2024
Patient seen and examined at bedside with Dr. Thomson. Feels much better than previous. OOB to chair. Denies abdominal pain. Denies n/v. Passing flatus and some stools as well. Notes he feels hungry.
Objective Data
-
Intake and Output
05/24/24 05/25/24 05/26/24
06:59 06:59 06:59
Intake Total 720 / 720 1280 / 1280
Output Total 880 / 880
Balance 720 / 720 400 / 400
Intake:
Oral fluids 720 / 720 480 / 480
IV fluids (Total) 800 / 800
Normosol 300 / 300
Output:
Urine, Voided 880 / 880
Other:
Number of approximated MODERATE 3 2
amounts of urine
Vital Signs
Temp Pulse Resp BP Pulse Ox
97.6 F 72 16 117/53 93
05/25/24 11:00 05/25/24 11:00 05/25/24 11:00 05/25/24 11:00 05/25/24 11:00
Lab Results
05/25/24 08:24
05/25/24 08:24
Calcium 8.6 mg/dl (8.4-10.2) 05/25/24 08:24
Phosphorus 3.6 mg/dl (2.5-4.5) 05/25/24 08:24
Magnesium 2.1 mg/dl (1.6-2.3) 05/25/24 08:24
Total Bilirubin 0.7 mg/dl (0.2-1.3) 05/18/24 13:25
AST 23 U/L (17-59) 05/18/24 13:25
ALT 22 U/L (0-50) 05/18/24 13:25
Alkaline Phosphatase 49 U/L (38-126) 05/18/24 13:25
Total Protein 6.6 g/dl (6.3-8.2) 05/18/24 13:25
Albumin 4.2 g/dl (3.5-5.0) 05/18/24 13:25
Physical Exam
-
NAD AAOx3
ABD: Soft, NT, ND. No rebound or guarding
Midline incision intact staple line
[2024-05-25 13:23] LABS: Glucose - Point of Care 245 mg/dl (70-99)
[2024-05-25 17:05] LABS: Glucose - Point of Care 138 mg/dl (70-99)
[2024-05-25] MEDS: NOVOLOG FLEXPEN-LOW RESISTANCE SC (17:20)
[2024-05-25] MEDS: LOVENOX 40 MG SC (17:21)
[2024-05-25] MEDS: TOPROL XL 50 MG PO (17:21)
[2024-05-25] MEDS: TYLENOL PO (17:22)
[2024-05-25] MEDS: ROXICODONE 10 MG PO (17:30)
[2024-05-25 21:50] LABS: Glucose - Point of Care 180 mg/dl (70-99)
[2024-05-26] MEDS: ROXICODONE 5 MG PO (03:26)
[2024-05-26] MEDS: TYLENOL 1000 MG PO ×4 (04:15→22:16)
[2024-05-26 06:43] VITALS: BMI 21.2
[2024-05-26 07:07] LABS: Glucose - Point of Care 158 mg/dl (70-99)
[2024-05-26 07:10] VITALS: BP 133/67
--- NOTE | 2024-05-26 07:11 | W.PN.HOSP.TC ---
Today's Communication/Plan
-
diet as per surgery
glycemic control
pain control
OOB encourage ambulation
Assessment / Plan
Assessment / Plan
Physical Exam
General: Well Developed and No Apparent Distress
HEENT: Normocephalic, Atraumatic and Moist Mucous Membranes
Respiratory: Clear to Auscultation
Cardiac: Regular Rhythm and S1/S2; Negative Murmur, Rub or Gallop
GI: Soft, Nontender, Nondistended and Normal Bowel Sounds; Negative Organomegaly
Musculoskeletal: No Clubbing, No Cyanosis and No Edema
Skin: Negative Rash
Neuro: Nonfocal/Grossly Intact
IMPRESSION:
64M PAD b/l lower ext bypass CAD HTN HLD DM COPD severe stenosis SMA chronic mesenteric ischemia p/w progressive abd pain for two days right sided. Initially symptoms started with nausea and one episode of vomiting. Since then patient has had
reduced oral intake due to pain. Last bowel movement was also two days ago. Denies history of abd surgeries. Patient was notably hypotensive during ED evaluation and received 2L with subsequent improvement noted though pressures remain borderline
low systolic high 80s to 90s, MAP consistently >65. Intermittently tachy to 100 with wbc 19.9 concerning for severe sepsis/shock. Otherwise afebrile, no significant lactic acidosis. Stable respiratory status non-labored. CT abd/pelvis with IV
contrast (no oral) concerning for small bowel enteritis and partial bowel obstruction.
Sepsis with septic shock requiring vasopressors.
Acute ischemic bowel.
Acute hypoxic respiratory insufficiency secondary to atelectasis and volume overload. Requiring nasal cannula oxygen at 4 L.
Metabolic acidosis
SMA and celiac stenosis
Conditions prior to admission:
PAD
-Status post left common femoral endarterectomy with patch angioplasty with bovine pericardium, left SMA to below knee popliteal artery bypass with propaten graft.
CAD
Carotid artery stenosis
COPD
Pulmonary nodule on CT of the chest
Tobacco use disorder.
Sciatica
PLAN:
Acute small bowel ischemia with septic shock
CT angiogram
1. SEVERE WALL THICKENING in the CECUM with adjacent pericecal inflammation and a small amount of adjacent ascites which has increased since 05/18/2024. Mild wall thickening throughout the transverse colon, descending colon, and sigmoid colon
which is most suggestive of an acute colitis (most pronounced in the cecum). Moderate circumferential wall thickening in right lower quadrant ileal loops suggestive of either an acute enteritis or reactive wall thickening. Diagnostic possibilities
are (1) an acute infectious or inflammatory enterocolitis, (2) acute cecal diverticulitis, (3) acute ischemic enterocolitis, or (4) less likely cecal adenocarcinoma.
2. Moderate diverticulosis throughout the sigmoid colon.
3. Severe calcific atherosclerotic plaque in the abdominal aorta, iliac, and femoral arteries with patent bilateral external iliac artery stents and patent left common iliac artery stent in place.
4. Bilateral lower extremity femoral bypass grafts in place which appear patent. Occluded bilateral proximal superficial femoral arteries.
5. Severe greater than 70% diameter stenosis in the superior mesenteric artery, 50-70% diameter stenosis in the celiac artery, and patent inferior mesenteric artery.
6. Moderate diffuse hepatic steatosis.
7. Acute interstitial cardiogenic pulmonary edema.
8. Minimal bilateral pleural effusions
9. Moderate multilevel lumbar discogenic degenerative disease.
Status post exploratory laparotomy and partial cecotomy 05/19.
Postoperative care
Broad-spectrum antibiotics: Zosyn completed on 05/23
Full liquid diet advanced to regular, briefly downgraded back to Clear liquid following concern subsequent abd no obstruction noted on CR obstruct series, diet since advanced back to Regular as per Surgery
Analgesia
Incentive spirometry
PAD
Carotid artery stenosis.
Status post lower extremity revascularization as above.
Noted with severe greater than 70% stenosis and SMA and celiac artery.
Vascular surgery consultation
CT angio 05/21:
IMPRESSION:
1. Occlusion of the left subclavian artery. Moderate stenosis at the origin of the brachiocephalic artery.
2. Advanced aortic atherosclerotic changes without aneurysmal dilation or flow limiting stenosis. Severe coronary artery calcification.
3. Mild to moderate CHF with very small bilateral effusions with adjacent atelectasis.
4. Emphysema.
5. Secretions/mucous plugging in the left lower lobar bronchus extending into segmental branches.
6. Small volume pneumoperitoneum related to known recent abdominal surgery.
Plan is for SMA revascularization on 05/23
Acute hypoxic respiratory insufficiency
Likely multifactorial in the settings of atelectasis, sepsis, volume overload with IV fluids required for resuscitation
Echocardiogram 05/20 with normal LV size and function LVEF 55-60%. Mild to moderate TR. Pulmonary artery pressure 52 mmHg
Weaned off oxygen supplementation, stable respiratory status on room air
Incentive spirometry.
COPD without exacerbation baseline
Tobacco use disorder on nicotine patch
Counseling about quitting
Plavix resumed. Continue DAPT
CAD.
Essential hypertension.
Echocardiogram as above
Preadmission regimen including metoprolol, Imdur, Norvasc, statin.
Resume metoprolol and Imdur.
Hold Norvasc, bp well controlled at this time without
Ventricular tachycardia on telemetry. Asymptomatic and hemodynamically stable
Mg wnl
ECG.
Troponin wnl
Continue beta-elizabeth
Type 2 diabetes
Hemoglobin A1c 6.6
Has been off oral meds acutely
Preadmission regimen metformin, Jardiance, glipizide
Metformin and Jardiance equivalent Farxiga resumed, cont hold glipizide for now
PT/OT appreciated Home PT vs no needs
I spent a total of 40 minutes with the patient or on the floor. More than 50% of this time involved counseling and coordination of care.
Anticipated Discharge: 24 - 48 hours
Subjective/Interval History
-
Date of Service: May 26, 2024
Endorses abd tightness discomfort since advancement of diet yesterday. Diet subsequently downgrade back to clears as per surgery.
Objective Data
-
Vital Signs:
Vital Signs
Temp Pulse Resp BP Pulse Ox
97.5 F 66 16 124/64 95
05/25/24 23:28 05/25/24 23:28 05/25/24 23:28 05/25/24 23:28 05/25/24 23:28
I&O
05/25/24 05/26/24 05/27/24
06:59 06:59 06:59
Intake Total 1280 / 1280 480 / 480
Output Total 880 / 880
Balance 400 / 400 480 / 480
[2024-05-26] MEDS: SPIRIVA RESPIMAT 2.5 MCG 2 PUFF INH (08:01)
[2024-05-26] MEDS: STRIVERDI RESPIMAT 2 PUFF INH (08:01)
[2024-05-26] MEDS: PLAVIX 75 MG PO (08:51)
[2024-05-26] MEDS: NOVOLOG FLEXPEN-LOW RESISTANCE 1 UNITS SC ×2 (08:51→12:29)
[2024-05-26] MEDS: IMDUR (EXTENDED RELEASE) 60 MG PO ×2 (08:51→21:53)
[2024-05-26] MEDS: GLUCOPHAGE 1000 MG PO (08:51)
[2024-05-26] MEDS: ASPIR LOW (ENTERIC COATED) 81 MG PO (08:51)
[2024-05-26] MEDS: NICODERM TRANSDERMAL 21 MG TRANSDERM (08:52)
[2024-05-26] MEDS: NSS (PRESERVATIVE FREE) 10 ML IV (08:54)
[2024-05-26] MEDS: PROTONIX IV 40 MG IV (08:55)
[2024-05-26] MEDS: ROXICODONE 10 MG PO (09:40)
--- NOTE | 2024-05-26 11:31 | W.PN.GS2 ---
Addendum entered and electronically signed by Lucho Thomson MD 05/26/24 12:50:
I saw and examined the patient.
The COATING MACHINE HELPER's note was reviewed and I agree with the note.
Comment:
Feeling a little more pain today. Passing flatus, no BM.
AFVSS, ABD soft, mildly distended, mildly diffusely tender, no rebound or guarding, incision well-approximated without drainage or erythema
No labs today
� Back down to clears; obtain AXR to rule out ileus
�If no clear cause and pain persists, would get another CT scan
� Continue pain control with Tylenol, oxycodone and Dilaudid as needed
� Continue home medications
� Appreciate vascular
� Off antibiotics, no fevers, normal WBC
� Appreciate hospitalist
�Appreciate PT for dispo recs
Dispo�pending investigation of increased pain; may be related to ileus versus other more concerning issue, may be expected postoperative pain
Original Note:
Today's Communication / Plan
-
XR abd
Assessment / Plan
-
Assessment: 64 yo male with a h/o PAD with multiple grafts, DM & current smoker who presented with ischemic cecum
POD #7 ex lap with partial cecectomy for small portion of ischemic bowel
POD #2 eft subclavian a and SMA stent with vascular surgery
AFVSS
Pain persists with some distention today. Notes he is feeling better overall
Plan:
--Obtain obstruction series xrays and place on clears until resulted
--Pain management as needed
--OOB Ambulate
--Medical management as per primary team
Subjective Data
-
Date of Service: May 26, 2024
Patient seen and examined at bedside with Dr. Thomson. Reports pain continues to improve but still present and requiring narcotics. Notes a deep pain just below his incision. Passing flatus. No BM yet doay but notes he feels like he needs to go soon.
Objective Data
-
Intake and Output
05/25/24 05/26/24 05/27/24
06:59 06:59 06:59
Intake Total 1280 / 1280 480 / 480
Output Total 880 / 880
Balance 400 / 400 480 / 480
Intake:
Oral fluids 480 / 480 480 / 480
IV fluids (Total) 800 / 800
Normosol 300 / 300
Output:
Urine, Voided 880 / 880
Other:
Number of approximated MODERATE 2 2
amounts of urine
Vital Signs
Temp Pulse Resp BP Pulse Ox
97.3 F 70 16 133/67 92
05/26/24 07:10 05/26/24 08:04 05/26/24 08:04 05/26/24 07:10 05/26/24 08:04
Lab Results
05/25/24 08:24
05/25/24 08:24
Calcium 8.6 mg/dl (8.4-10.2) 05/25/24 08:24
Phosphorus 3.6 mg/dl (2.5-4.5) 05/25/24 08:24
Magnesium 2.1 mg/dl (1.6-2.3) 05/25/24 08:24
Total Bilirubin 0.7 mg/dl (0.2-1.3) 05/18/24 13:25
AST 23 U/L (17-59) 05/18/24 13:25
ALT 22 U/L (0-50) 05/18/24 13:25
Alkaline Phosphatase 49 U/L (38-126) 05/18/24 13:25
Total Protein 6.6 g/dl (6.3-8.2) 05/18/24 13:25
Albumin 4.2 g/dl (3.5-5.0) 05/18/24 13:25
Physical Exam
-
NAD AAOx3
ABD: Soft, mild generalized tenderness, mod distention.
Midline incision intact staple line
[2024-05-26 11:49] LABS: Glucose - Point of Care 176 mg/dl (70-99)
[2024-05-26 15:15] VITALS: BP 103/58
[2024-05-26 16:45] LABS: Glucose - Point of Care 144 mg/dl (70-99)
[2024-05-26] MEDS: NOVOLOG FLEXPEN-LOW RESISTANCE SC (16:50)
[2024-05-26] MEDS: LOVENOX 40 MG SC (17:10)
[2024-05-26] MEDS: TOPROL XL 50 MG PO (17:11)
[2024-05-26 21:25] LABS: Glucose - Point of Care 180 mg/dl (70-99)
[2024-05-26] MEDS: COLACE 100 MG PO (21:53)
[2024-05-27 00:13] VITALS: BP 140/64
[2024-05-27] MEDS: TYLENOL 1000 MG PO ×4 (04:09→22:05)
[2024-05-27 05:39] VITALS: BMI 20.9
[2024-05-27 07:22] LABS: Hematocrit 39.4 % (39.0-52.0); Hemoglobin 13.5 g/dL (13.0-18.0); Mean Corp Hgb Conc. 34.3 g/dL (33.0-37.0); Mean Corpuscular Hgb 31.7 pg (27.0-31.0); Mean Corpuscular Volume 92.5 fL (80.0-94.0); Platelet Count 364 10^3/uL (130-400); Red Blood Cell Count 4.26 10^6/uL (4.70-6.10); Red Cell Dist. Width 13.6 % (11.5-14.5); White Blood Cell Count 10.8 10^3/uL (4.8-10.8)
[2024-05-27 07:29] LABS: Blood Urea Nitrogen 9 mg/dl (9-20); Carbon Dioxide 30 mmol/L (22-30); Chloride 99 mmol/L (98-107); Estimated Creatinine Clearance 125 ml/min; Glucose 141 mg/dl (70-99); Phosphorus 3.4 mg/dl (2.5-4.5); Potassium 4.5 mmol/L (3.5-5.1); Sodium 138 mmol/L (135-145); eGFR > 60.00
[2024-05-27] MEDS: STRIVERDI RESPIMAT 2 PUFF INH (07:36)
[2024-05-27] MEDS: SPIRIVA RESPIMAT 2.5 MCG 2 PUFF INH (07:36)
[2024-05-27 07:39] VITALS: BP 152/71
[2024-05-27 07:39] LABS: Glucose - Point of Care 153 mg/dl (70-99)
[2024-05-27] MEDS: NOVOLOG FLEXPEN-LOW RESISTANCE 1 UNITS SC (07:55)
[2024-05-27] MEDS: COLACE 100 MG PO ×2 (07:56→22:06)
[2024-05-27] MEDS: GLUCOPHAGE 1000 MG PO ×2 (07:56→17:47)
[2024-05-27] MEDS: ASPIR LOW (ENTERIC COATED) 81 MG PO (07:56)
[2024-05-27] MEDS: IMDUR (EXTENDED RELEASE) 60 MG PO ×2 (07:57→22:06)
[2024-05-27] MEDS: PLAVIX 75 MG PO (07:57)
[2024-05-27] MEDS: NICODERM TRANSDERMAL 21 MG TRANSDERM (07:57)
[2024-05-27] MEDS: NSS (PRESERVATIVE FREE) 10 ML IV (07:58)
[2024-05-27] MEDS: FLUSH (NSS) 2 FLUSH IV (07:58)
[2024-05-27] MEDS: PROTONIX IV 40 MG IV (07:58)
[2024-05-27] MEDS: ROXICODONE 10 MG PO ×2 (08:04→22:05)
[2024-05-27] MEDS: MIRALAX 17 GRAMS PO (10:20)
--- NOTE | 2024-05-27 10:50 | CM ---
Patient seen at bedside.
PT rec home PT vs. no need.
[facility].
Plan: home, [facility]
--- NOTE | 2024-05-27 11:31 | W.PN.GS2 ---
Today's Communication / Plan
-
Bowel regimen
Assessment / Plan
-
Assessment: 64 yo male with a h/o PAD with multiple grafts, DM & current smoker who presented with ischemic cecum
POD #8 ex lap with partial cecectomy for small portion of ischemic bowel
POD #3 eft subclavian a and SMA stent with vascular surgery
AFVSS
Feeling better overall
Tolerating diet. Passing flatus. No BM for several days
XRays yesterday without obstruction/ileus
Plan:
--Continue regular diet
--C/W Colace BID, added Miralax
--Pain management as needed
--OOB Ambulate
--Medical management as per primary team
Anticipate he will be ready for discharge [facility] over the next 24hours
Subjective Data
-
Date of Service: May 27, 2024
Patient seen and examined at bedside with Dr. Philip. Dunn n/v. Tolerating diet. Pain improving. Passing flatus but no BM as of yet.
Objective Data
-
Intake and Output
05/26/24 05/27/24 05/28/24
06:59 06:59 06:59
Intake Total 480 / 480 1350 / 1350
Balance 480 / 480 1350 / 1350
Intake:
Oral fluids 480 / 480 1350 / 1350
Other:
Number of approximated MODERATE 2 2
amounts of urine
Vital Signs
Temp Pulse Resp BP Pulse Ox
97.6 F 78 16 152/71 92
05/27/24 07:39 05/27/24 07:43 05/27/24 07:43 05/27/24 07:39 05/27/24 07:53
Lab Results
05/27/24 05:20
05/27/24 05:20
Calcium 9.0 mg/dl (8.4-10.2) 05/27/24 05:20
Phosphorus 3.4 mg/dl (2.5-4.5) 05/27/24 05:20
Magnesium 2.0 mg/dl (1.6-2.3) 05/27/24 05:20
Total Bilirubin 0.7 mg/dl (0.2-1.3) 05/18/24 13:25
AST 23 U/L (17-59) 05/18/24 13:25
ALT 22 U/L (0-50) 05/18/24 13:25
Alkaline Phosphatase 49 U/L (38-126) 05/18/24 13:25
Total Protein 6.6 g/dl (6.3-8.2) 05/18/24 13:25
Albumin 4.2 g/dl (3.5-5.0) 05/18/24 13:25
Physical Exam
-
NAD AAOx3
ABD: Soft, Mild incisional tenderness, ND
Midline incision intact staple line
[2024-05-27 12:26] LABS: Glucose - Point of Care 108 mg/dl (70-99)
[2024-05-27] MEDS: NOVOLOG FLEXPEN-LOW RESISTANCE SC ×2 (12:31→17:46)
[2024-05-27 15:03] VITALS: BP 123/53
--- NOTE | 2024-05-27 16:44 | W.PN.HOSP.TC ---
Today's Communication/Plan
-
Low residue diet
Bowel regimen
Continue metformin and Farxiga
Hold glipizide.
Continue Plavix
Assessment / Plan
Assessment / Plan
IMPRESSION:
64M PAD b/l lower ext bypass CAD HTN HLD DM COPD severe stenosis SMA chronic mesenteric ischemia p/w progressive abd pain for two days right sided. Initially symptoms started with nausea and one episode of vomiting. Since then patient has had
reduced oral intake due to pain. Last bowel movement was also two days ago. Denies history of abd surgeries. Patient was notably hypotensive during ED evaluation and received 2L with subsequent improvement noted though pressures remain borderline
low systolic high 80s to 90s, MAP consistently >65. Intermittently tachy to 100 with wbc 19.9 concerning for severe sepsis/shock. Otherwise afebrile, no significant lactic acidosis. Stable respiratory status non-labored. CT abd/pelvis with IV
contrast (no oral) concerning for small bowel enteritis and partial bowel obstruction.
Sepsis with septic shock requiring vasopressors.
Acute ischemic bowel.
Acute hypoxic respiratory insufficiency secondary to atelectasis and volume overload. Requiring nasal cannula oxygen at 4 L.
Metabolic acidosis
SMA and celiac stenosis
Conditions prior to admission:
PAD
-Status post left common femoral endarterectomy with patch angioplasty with bovine pericardium, left SMA to below knee popliteal artery bypass with propaten graft.
CAD
Carotid artery stenosis
COPD
Pulmonary nodule on CT of the chest
Tobacco use disorder.
Sciatica
PLAN:
Acute small bowel ischemia with septic shock
CT angiogram
1. SEVERE WALL THICKENING in the CECUM with adjacent pericecal inflammation and a small amount of adjacent ascites which has increased since 05/18/2024. Mild wall thickening throughout the transverse colon, descending colon, and sigmoid colon
which is most suggestive of an acute colitis (most pronounced in the cecum). Moderate circumferential wall thickening in right lower quadrant ileal loops suggestive of either an acute enteritis or reactive wall thickening. Diagnostic possibilities
are (1) an acute infectious or inflammatory enterocolitis, (2) acute cecal diverticulitis, (3) acute ischemic enterocolitis, or (4) less likely cecal adenocarcinoma.
2. Moderate diverticulosis throughout the sigmoid colon.
3. Severe calcific atherosclerotic plaque in the abdominal aorta, iliac, and femoral arteries with patent bilateral external iliac artery stents and patent left common iliac artery stent in place.
4. Bilateral lower extremity femoral bypass grafts in place which appear patent. Occluded bilateral proximal superficial femoral arteries.
5. Severe greater than 70% diameter stenosis in the superior mesenteric artery, 50-70% diameter stenosis in the celiac artery, and patent inferior mesenteric artery.
6. Moderate diffuse hepatic steatosis.
7. Acute interstitial cardiogenic pulmonary edema.
8. Minimal bilateral pleural effusions
9. Moderate multilevel lumbar discogenic degenerative disease.
Status post exploratory laparotomy and partial cecotomy 05/19.
Monitor on low residue diet.
Bowel regimen
PAD
Carotid artery stenosis.
Status post lower extremity revascularization as above.
Noted with severe greater than 70% stenosis and SMA and celiac artery.
Vascular surgery consultation
CT angio 05/21:
IMPRESSION:
1. Occlusion of the left subclavian artery. Moderate stenosis at the origin of the brachiocephalic artery.
2. Advanced aortic atherosclerotic changes without aneurysmal dilation or flow limiting stenosis. Severe coronary artery calcification.
3. Mild to moderate CHF with very small bilateral effusions with adjacent atelectasis.
4. Emphysema.
5. Secretions/mucous plugging in the left lower lobar bronchus extending into segmental branches.
6. Small volume pneumoperitoneum related to known recent abdominal surgery.
Status post successful SMA and left subclavian revascularization on 05/24.
Acute hypoxic respiratory insufficiency
Likely multifactorial in the settings of atelectasis, sepsis, volume overload with IV fluids required for resuscitation
Echocardiogram 05/20 with normal LV size and function LVEF 55-60%. Mild to moderate TR. Pulmonary artery pressure 52 mmHg
Weaned off oxygen supplementation, stable respiratory status on room air
Incentive spirometry.
COPD without exacerbation baseline
Tobacco use disorder on nicotine patch
Counseling about quitting
Plavix resumed. Continue DAPT
CAD.
Essential hypertension.
Echocardiogram as above
Preadmission regimen including metoprolol, Imdur, Norvasc, statin.
Resume metoprolol and Imdur.
Hold Norvasc, bp well controlled at this time without
Ventricular tachycardia on telemetry. Asymptomatic and hemodynamically stable
Mg wnl
ECG.
Troponin wnl
Continue beta-elizabeth
Type 2 diabetes
Hemoglobin A1c 6.6
Has been off oral meds acutely
Preadmission regimen metformin, Jardiance, glipizide
Metformin and Jardiance equivalent Farxiga resumed, cont hold glipizide for now
PT/OT appreciated Home PT vs no needs
Anticipated Discharge: 24 - 48 hours
Subjective/Interval History
-
Date of Service: May 27, 2024
Objective Data
-
Labs:
Laboratory Results
05/27/24
05:20
WBC 10.8
Hgb 13.5
Hct 39.4
Plt Count 364 D
Sodium 138
Potassium 4.5
Chloride 99
Carbon Dioxide 30
BUN 9
Creatinine 0.6 L
Glucose 141 H
Calcium 9.0
Vital Signs:
Vital Signs
Temp Pulse Resp BP Pulse Ox
97.6 F 70 15 123/53 98
05/27/24 15:03 05/27/24 15:03 05/27/24 15:03 05/27/24 15:03 05/27/24 15:03
I&O
05/26/24 05/27/24 05/28/24
06:59 06:59 06:59
Intake Total 480 / 480 1350 / 1350
Balance 480 / 480 1350 / 1350
Physical Exam
-
General: Well Developed and No Apparent Distress
HEENT: Normocephalic, Atraumatic and Moist Mucous Membranes
Respiratory: Clear to Auscultation
Cardiac: Regular Rhythm and S1/S2; Negative Murmur, Rub or Gallop
GI: Soft, Nontender, Nondistended and Normal Bowel Sounds; Negative Organomegaly
Rectal: Deferred by Provider
Musculoskeletal: No Clubbing, No Cyanosis and No Edema
Skin: Negative Rash
Neuro: Nonfocal/Grossly Intact
[2024-05-27 17:40] LABS: Glucose - Point of Care 134 mg/dl (70-99)
[2024-05-27] MEDS: TOPROL XL 50 MG PO (17:47)
[2024-05-27] MEDS: FARXIGA 10 MG PO (17:47)
[2024-05-27] MEDS: LOVENOX 40 MG SC (17:48)
[2024-05-27 22:06] LABS: Glucose - Point of Care 165 mg/dl (70-99)
[2024-05-27 22:35] VITALS: BP 127/61
[2024-05-28 05:24] VITALS: BMI 20.6
[2024-05-28] MEDS: TYLENOL 1000 MG PO ×4 (05:39→23:17)
[2024-05-28] MEDS: ROXICODONE 10 MG PO (05:43)
[2024-05-28 07:19] LABS: Hemoglobin 13.9 g/dL (13.0-18.0); Mean Corp Hgb Conc. 34.8 g/dL (33.0-37.0); Mean Corpuscular Hgb 31.7 pg (27.0-31.0); Mean Corpuscular Volume 91.3 fL (80.0-94.0); Mean Platelet Volume 8.9 fL (7.4-10.4); Platelet Count 398 10^3/uL (130-400); Red Blood Cell Count 4.38 10^6/uL (4.70-6.10); Red Cell Dist. Width 13.3 % (11.5-14.5); White Blood Cell Count 11.8 10^3/uL (4.8-10.8)
[2024-05-28 07:24] LABS: Blood Urea Nitrogen 12 mg/dl (9-20); Calcium 9.2 mg/dl (8.4-10.2); Carbon Dioxide 28 mmol/L (22-30); Chloride 99 mmol/L (98-107); Estimated Creatinine Clearance 105 ml/min; Glucose 128 mg/dl (70-99); Phosphorus 4.1 mg/dl (2.5-4.5); Potassium 4.4 mmol/L (3.5-5.1); Sodium 138 mmol/L (135-145); eGFR > 60.00
[2024-05-28 07:58] LABS: Glucose - Point of Care 137 mg/dl (70-99)
[2024-05-28 08:10] VITALS: BP 101/58
--- NOTE | 2024-05-28 08:15 | W.PN.GS2 ---
Today's Communication / Plan
-
--Continue regular diet
--C/W Colace BID, added Miralax
--DC when having bowel function
Assessment / Plan
-
Assessment: 64 yo male with a h/o PAD with multiple grafts, DM & current smoker who presented with ischemic cecum
POD #9 ex lap with partial cecectomy for small portion of ischemic bowel
POD #4 left subclavian a and SMA stent with vascular surgery
AFVSS
Feeling better overall
Tolerating diet. Passing flatus. No BM for several days
XRays yesterday without obstruction/ileus
Plan:
--Continue regular diet
--C/W Colace BID, added Miralax
--Pain management as needed
--OOB Ambulate
--Medical management as per primary team
DC when having bowel function
Subjective Data
-
Date of Service: May 28, 2024
Reports continued abdominal soreness, no worsening with oral intake, described as more muscular and worse with positions or ambulation. No nausea or vomiting. Passing flatus, denies any bowel movement in days. No reports of bloody bowel
movements. Afebrile.
Objective Data
-
Intake and Output
05/27/24 05/28/24 05/29/24
06:59 06:59 06:59
Intake Total 1350 / 1350 2400 / 2400
Balance 1350 / 1350 2400 / 2400
Intake:
Oral fluids 1350 / 1350 2400 / 2400
Other:
Number of approximated MODERATE 2 3
amounts of urine
Vital Signs
Temp Pulse Resp BP Pulse Ox
97.8 F 72 16 101/58 94
05/28/24 08:10 05/28/24 08:10 05/28/24 08:10 05/28/24 08:10 05/28/24 08:10
Lab Results
05/28/24 05:00
05/28/24 05:00
Calcium 9.2 mg/dl (8.4-10.2) 05/28/24 05:00
Phosphorus 4.1 mg/dl (2.5-4.5) 05/28/24 05:00
Magnesium 2.0 mg/dl (1.6-2.3) 05/28/24 05:00
Total Bilirubin 0.7 mg/dl (0.2-1.3) 05/18/24 13:25
AST 23 U/L (17-59) 05/18/24 13:25
ALT 22 U/L (0-50) 05/18/24 13:25
Alkaline Phosphatase 49 U/L (38-126) 05/18/24 13:25
Total Protein 6.6 g/dl (6.3-8.2) 05/18/24 13:25
Albumin 4.2 g/dl (3.5-5.0) 05/18/24 13:25
Physical Exam
-
Gen: NAD
Abd: soft, mild tenderness, ND, non-peritoneal, incision c/d/i - no erythema, ecchymosis or drainage, ishan in place
[2024-05-28] MEDS: SPIRIVA RESPIMAT 2.5 MCG 2 PUFF INH (08:17)
[2024-05-28] MEDS: STRIVERDI RESPIMAT 2 PUFF INH (08:17)
[2024-05-28] MEDS: PROTONIX 40 MG PO (08:27)
[2024-05-28] MEDS: NOVOLOG FLEXPEN-LOW RESISTANCE SC ×3 (08:27→16:42)
[2024-05-28] MEDS: COLACE 100 MG PO ×2 (08:27→19:41)
[2024-05-28] MEDS: ASPIR LOW (ENTERIC COATED) 81 MG PO (08:27)
[2024-05-28] MEDS: IMDUR (EXTENDED RELEASE) 60 MG PO ×2 (08:27→19:41)
[2024-05-28] MEDS: GLUCOPHAGE 1000 MG PO ×2 (08:27→17:27)
[2024-05-28] MEDS: PLAVIX 75 MG PO (08:27)
[2024-05-28] MEDS: NICODERM TRANSDERMAL 21 MG TRANSDERM (08:27)
[2024-05-28] MEDS: MIRALAX 17 GRAMS PO (08:28)
[2024-05-28 11:46] LABS: Glucose - Point of Care 137 mg/dl (70-99)
--- NOTE | 2024-05-28 14:33 | W.PN.HOSP.TC ---
Today's Communication/Plan
-
Bowel regimen per
Discharge planning
Assessment / Plan
Assessment / Plan
IMPRESSION:
64M PAD b/l lower ext bypass CAD HTN HLD DM COPD severe stenosis SMA chronic mesenteric ischemia p/w progressive abd pain for two days right sided. Initially symptoms started with nausea and one episode of vomiting. Since then patient has had
reduced oral intake due to pain. Last bowel movement was also two days ago. Denies history of abd surgeries. Patient was notably hypotensive during ED evaluation and received 2L with subsequent improvement noted though pressures remain borderline
low systolic high 80s to 90s, MAP consistently >65. Intermittently tachy to 100 with wbc 19.9 concerning for severe sepsis/shock. Otherwise afebrile, no significant lactic acidosis. Stable respiratory status non-labored. CT abd/pelvis with IV
contrast (no oral) concerning for small bowel enteritis and partial bowel obstruction.
Sepsis with septic shock requiring vasopressors.
Acute ischemic bowel.
Acute hypoxic respiratory insufficiency secondary to atelectasis and volume overload. Requiring nasal cannula oxygen at 4 L.
Metabolic acidosis
SMA and celiac stenosis
Conditions prior to admission:
PAD
-Status post left common femoral endarterectomy with patch angioplasty with bovine pericardium, left SMA to below knee popliteal artery bypass with propaten graft.
CAD
Carotid artery stenosis
COPD
Pulmonary nodule on CT of the chest
Tobacco use disorder.
Sciatica
PLAN:
Acute small bowel ischemia with septic shock
CT angiogram
1. SEVERE WALL THICKENING in the CECUM with adjacent pericecal inflammation and a small amount of adjacent ascites which has increased since 05/18/2024. Mild wall thickening throughout the transverse colon, descending colon, and sigmoid colon
which is most suggestive of an acute colitis (most pronounced in the cecum). Moderate circumferential wall thickening in right lower quadrant ileal loops suggestive of either an acute enteritis or reactive wall thickening. Diagnostic possibilities
are (1) an acute infectious or inflammatory enterocolitis, (2) acute cecal diverticulitis, (3) acute ischemic enterocolitis, or (4) less likely cecal adenocarcinoma.
2. Moderate diverticulosis throughout the sigmoid colon.
3. Severe calcific atherosclerotic plaque in the abdominal aorta, iliac, and femoral arteries with patent bilateral external iliac artery stents and patent left common iliac artery stent in place.
4. Bilateral lower extremity femoral bypass grafts in place which appear patent. Occluded bilateral proximal superficial femoral arteries.
5. Severe greater than 70% diameter stenosis in the superior mesenteric artery, 50-70% diameter stenosis in the celiac artery, and patent inferior mesenteric artery.
6. Moderate diffuse hepatic steatosis.
7. Acute interstitial cardiogenic pulmonary edema.
8. Minimal bilateral pleural effusions
9. Moderate multilevel lumbar discogenic degenerative disease.
Status post exploratory laparotomy and partial cecotomy 05/19.
Monitor on low residue diet.
Bowel regimen
PAD
Carotid artery stenosis.
Status post lower extremity revascularization as above.
Noted with severe greater than 70% stenosis and SMA and celiac artery.
Vascular surgery consultation
CT angio 05/21:
IMPRESSION:
1. Occlusion of the left subclavian artery. Moderate stenosis at the origin of the brachiocephalic artery.
2. Advanced aortic atherosclerotic changes without aneurysmal dilation or flow limiting stenosis. Severe coronary artery calcification.
3. Mild to moderate CHF with very small bilateral effusions with adjacent atelectasis.
4. Emphysema.
5. Secretions/mucous plugging in the left lower lobar bronchus extending into segmental branches.
6. Small volume pneumoperitoneum related to known recent abdominal surgery.
Status post successful SMA and left subclavian revascularization on 05/24.
Acute hypoxic respiratory insufficiency
Likely multifactorial in the settings of atelectasis, sepsis, volume overload with IV fluids required for resuscitation
Echocardiogram 05/20 with normal LV size and function LVEF 55-60%. Mild to moderate TR. Pulmonary artery pressure 52 mmHg
Weaned off oxygen supplementation, stable respiratory status on room air
Incentive spirometry.
COPD without exacerbation baseline
Tobacco use disorder on nicotine patch
Counseling about quitting
Plavix resumed. Continue DAPT
CAD.
Essential hypertension.
Echocardiogram as above
Preadmission regimen including metoprolol, Imdur, Norvasc, statin.
Resume metoprolol and Imdur.
Hold Norvasc, bp well controlled at this time without
Ventricular tachycardia on telemetry. Asymptomatic and hemodynamically stable
Mg wnl
ECG.
Troponin wnl
Continue beta-elizabeth
Type 2 diabetes
Hemoglobin A1c 6.6
Has been off oral meds acutely
Preadmission regimen metformin, Jardiance, glipizide
Metformin and Jardiance equivalent Farxiga resumed, cont hold glipizide for now
PT/OT appreciated Home PT vs no needs
Anticipated Discharge: 24 - 48 hours
Subjective/Interval History
-
Date of Service: May 28, 2024
Objective Data
-
Labs:
Laboratory Results
05/28/24
05:00
WBC 11.8 H
Hgb 13.9
Hct 40.0
Plt Count 398
Sodium 138
Potassium 4.4
Chloride 99
Carbon Dioxide 28
BUN 12
Creatinine 0.7
Glucose 128 H
Calcium 9.2
Vital Signs:
Vital Signs
Temp Pulse Resp BP Pulse Ox
97.8 F 67 16 101/58 94
05/28/24 08:10 05/28/24 08:21 05/28/24 08:21 05/28/24 08:10 05/28/24 08:21
I&O
05/27/24 05/28/24 05/29/24
06:59 06:59 06:59
Intake Total 1350 / 1350 2400 / 2400
Balance 1350 / 1350 2400 / 2400
Physical Exam
-
General: Well Developed and No Apparent Distress
HEENT: Normocephalic, Atraumatic and Moist Mucous Membranes
Respiratory: Clear to Auscultation
Cardiac: Regular Rhythm and S1/S2; Negative Murmur, Rub or Gallop
GI: Soft, Nontender, Nondistended and Normal Bowel Sounds; Negative Organomegaly
Rectal: Deferred by Provider
Musculoskeletal: No Clubbing, No Cyanosis and No Edema
Skin: Negative Rash
Neuro: Nonfocal/Grossly Intact
[2024-05-28 15:30] VITALS: BP 115/63
[2024-05-28] MEDS: DULCOLAX 10 MG RECTAL (15:32)
[2024-05-28 16:40] LABS: Glucose - Point of Care 144 mg/dl (70-99)
[2024-05-28] MEDS: LOVENOX 40 MG SC (17:27)
[2024-05-28] MEDS: TOPROL XL 50 MG PO (17:27)
[2024-05-28] MEDS: FARXIGA 10 MG PO (17:27)
[2024-05-28] MEDS: MIRALAX PO (19:53)
[2024-05-28] MEDS: ROXICODONE 5 MG PO (19:57)
[2024-05-28 21:47] LABS: Glucose - Point of Care 144 mg/dl (70-99)
[2024-05-28 23:43] VITALS: BP 146/71
[2024-05-29] MEDS: TYLENOL PO (06:23)
[2024-05-29 06:29] LABS: Hematocrit 39.2 % (39.0-52.0); Hemoglobin 13.7 g/dL (13.0-18.0); Mean Corp Hgb Conc. 34.9 g/dL (33.0-37.0); Mean Corpuscular Volume 91.6 fL (80.0-94.0); Mean Platelet Volume 8.9 fL (7.4-10.4); Platelet Count 443 10^3/uL (130-400); Red Blood Cell Count 4.28 10^6/uL (4.70-6.10); Red Cell Dist. Width 13.4 % (11.5-14.5); White Blood Cell Count 13.4 10^3/uL (4.8-10.8)
[2024-05-29 06:57] LABS: Blood Urea Nitrogen 16 mg/dl (9-20); Calcium 9.1 mg/dl (8.4-10.2); Carbon Dioxide 27 mmol/L (22-30); Chloride 98 mmol/L (98-107); Estimated Creatinine Clearance 122 ml/min; Glucose 139 mg/dl (70-99); Magnesium 2.1 mg/dl (1.6-2.3); Phosphorus 3.9 mg/dl (2.5-4.5); Potassium 4.6 mmol/L (3.5-5.1); Sodium 139 mmol/L (135-145); eGFR > 60.00
[2024-05-29 07:33] LABS: Glucose - Point of Care 161 mg/dl (70-99)
[2024-05-29 07:35] VITALS: BP 122/68
[2024-05-29] MEDS: NICODERM TRANSDERMAL 21 MG TRANSDERM (07:52)
[2024-05-29] MEDS: COLACE 100 MG PO ×2 (07:52→21:14)
[2024-05-29] MEDS: ASPIR LOW (ENTERIC COATED) 81 MG PO (07:52)
[2024-05-29] MEDS: IMDUR (EXTENDED RELEASE) 60 MG PO ×2 (07:52→21:14)
[2024-05-29] MEDS: GLUCOPHAGE 1000 MG PO ×2 (07:52→17:58)
[2024-05-29] MEDS: PLAVIX 75 MG PO (07:52)
[2024-05-29] MEDS: PROTONIX 40 MG PO (07:54)
[2024-05-29] MEDS: MIRALAX 17 GRAMS PO ×2 (07:54→21:18)
[2024-05-29] MEDS: NOVOLOG FLEXPEN-LOW RESISTANCE 1 UNITS SC (07:54)
[2024-05-29] MEDS: SPIRIVA RESPIMAT 2.5 MCG 2 PUFF INH (08:29)
[2024-05-29] MEDS: STRIVERDI RESPIMAT 2 PUFF INH (08:30)
[2024-05-29 08:49] VITALS: BP 129/59; PULSE 75; O2SAT 95
--- NOTE | 2024-05-29 09:12 | W.PN.GS2 ---
Today's Communication / Plan
-
CT A/P
Assessment / Plan
-
Assessment: 64 yo male with a h/o PAD with multiple grafts, DM & current smoker who presented with ischemic cecum
POD #10 ex lap with partial cecectomy for small portion of ischemic bowel
POD #5 left subclavian a and SMA stent with vascular surgery
AFVSS
Feeling better overall
Tolerating diet. Passing flatus and BMs
XRays without obstruction/ileus
WBC trending up 2nd day, plts also trending up
Plan:
-- CT A/P to rule out intra-abdominal source of rising wbc/plt
--Continue regular diet
--C/W Colace BID, BID Miralax
--Pain management as needed
--OOB Ambulate
--Medical management as per primary team
DC pending CT result
Subjective Data
-
Date of Service: May 29, 2024
No complaints, passing BMs and flatus, denies n/v, pain controlled with PO meds, ambulating
Objective Data
-
Intake and Output
05/28/24 05/29/24 05/30/24
06:59 06:59 06:59
Intake Total 2400 / 2400 2160 / 2160
Balance 2400 / 2400 2160 / 2160
Intake:
Oral fluids 2400 / 2400 2160 / 2160
Other:
Number of approximated MODERATE 3 3
amounts of urine
Vital Signs
Temp Pulse Resp BP Pulse Ox
98 F 72 16 122/68 96
05/29/24 07:35 05/29/24 08:35 05/29/24 08:35 05/29/24 07:35 05/29/24 08:35
Lab Results
05/29/24 05:03
05/29/24 05:03
Calcium 9.1 mg/dl (8.4-10.2) 05/29/24 05:03
Phosphorus 3.9 mg/dl (2.5-4.5) 05/29/24 05:03
Magnesium 2.1 mg/dl (1.6-2.3) 05/29/24 05:03
Total Bilirubin 0.7 mg/dl (0.2-1.3) 05/18/24 13:25
AST 23 U/L (17-59) 05/18/24 13:25
ALT 22 U/L (0-50) 05/18/24 13:25
Alkaline Phosphatase 49 U/L (38-126) 05/18/24 13:25
Total Protein 6.6 g/dl (6.3-8.2) 05/18/24 13:25
Albumin 4.2 g/dl (3.5-5.0) 05/18/24 13:25
Physical Exam
-
Gen: NAD
Abd: soft, nd, nt, incision cdi with ishan
[2024-05-29] MEDS: TYLENOL 1000 MG PO ×3 (11:16→23:43)
[2024-05-29 11:43] LABS: Glucose - Point of Care 141 mg/dl (70-99)
[2024-05-29] MEDS: NOVOLOG FLEXPEN-LOW RESISTANCE SC ×2 (11:50→17:57)
[2024-05-29] MEDS: OMNIPAQUE 50 ML PO (11:53)
--- NOTE | 2024-05-29 14:12 | CM ---
Reviewed the chart notes. CM continues to be available to patient/family and is monitoring medical plan for needs at discharge.
Plan: Discharge to home when medically stable with VN services.
[2024-05-29] MEDS: ZOSYN 50 IV ×2 (15:15→21:18)
[2024-05-29 15:20] VITALS: BP 156/67
--- NOTE | 2024-05-29 15:44 | W.PN.HOSP.TC ---
Today's Communication/Plan
-
Rising leukocytosis and follow-up CT with right lower quadrant collection with concern for abscess.
Resume antibiotics/Zosyn
[facility] consultation for possible percutaneous drain
Assessment / Plan
Assessment / Plan
IMPRESSION:
64M PAD b/l lower ext bypass CAD HTN HLD DM COPD severe stenosis SMA chronic mesenteric ischemia p/w progressive abd pain for two days right sided. Initially symptoms started with nausea and one episode of vomiting. Since then patient has had
reduced oral intake due to pain. Last bowel movement was also two days ago. Denies history of abd surgeries. Patient was notably hypotensive during ED evaluation and received 2L with subsequent improvement noted though pressures remain borderline
low systolic high 80s to 90s, MAP consistently >65. Intermittently tachy to 100 with wbc 19.9 concerning for severe sepsis/shock. Otherwise afebrile, no significant lactic acidosis. Stable respiratory status non-labored. CT abd/pelvis with IV
contrast (no oral) concerning for small bowel enteritis and partial bowel obstruction.
Sepsis with septic shock requiring vasopressors.
Acute ischemic bowel.
Acute hypoxic respiratory insufficiency secondary to atelectasis and volume overload. Requiring nasal cannula oxygen at 4 L.
Metabolic acidosis
SMA and celiac stenosis
Conditions prior to admission:
PAD
-Status post left common femoral endarterectomy with patch angioplasty with bovine pericardium, left SMA to below knee popliteal artery bypass with propaten graft.
CAD
Carotid artery stenosis
COPD
Pulmonary nodule on CT of the chest
Tobacco use disorder.
Sciatica
PLAN:
Acute small bowel ischemia with septic shock
CT angiogram
1. SEVERE WALL THICKENING in the CECUM with adjacent pericecal inflammation and a small amount of adjacent ascites which has increased since 05/18/2024. Mild wall thickening throughout the transverse colon, descending colon, and sigmoid colon
which is most suggestive of an acute colitis (most pronounced in the cecum). Moderate circumferential wall thickening in right lower quadrant ileal loops suggestive of either an acute enteritis or reactive wall thickening. Diagnostic possibilities
are (1) an acute infectious or inflammatory enterocolitis, (2) acute cecal diverticulitis, (3) acute ischemic enterocolitis, or (4) less likely cecal adenocarcinoma.
2. Moderate diverticulosis throughout the sigmoid colon.
3. Severe calcific atherosclerotic plaque in the abdominal aorta, iliac, and femoral arteries with patent bilateral external iliac artery stents and patent left common iliac artery stent in place.
4. Bilateral lower extremity femoral bypass grafts in place which appear patent. Occluded bilateral proximal superficial femoral arteries.
5. Severe greater than 70% diameter stenosis in the superior mesenteric artery, 50-70% diameter stenosis in the celiac artery, and patent inferior mesenteric artery.
6. Moderate diffuse hepatic steatosis.
7. Acute interstitial cardiogenic pulmonary edema.
8. Minimal bilateral pleural effusions
9. Moderate multilevel lumbar discogenic degenerative disease.
Status post exploratory laparotomy and partial cecotomy 05/19.
Noted with rising WBC
Follow-up CT scan 05/29 with concern of right lower quadrant collection
Antibiotics/Zosyn reinstated on 05/29
Interventional radiology consulted for consideration of percutaneous drain if appropriate.
Continue bowel regimen
PAD
Carotid artery stenosis.
Status post lower extremity revascularization as above.
Noted with severe greater than 70% stenosis and SMA and celiac artery.
Vascular surgery consultation
CT angio 05/21:
IMPRESSION:
1. Occlusion of the left subclavian artery. Moderate stenosis at the origin of the brachiocephalic artery.
2. Advanced aortic atherosclerotic changes without aneurysmal dilation or flow limiting stenosis. Severe coronary artery calcification.
3. Mild to moderate CHF with very small bilateral effusions with adjacent atelectasis.
4. Emphysema.
5. Secretions/mucous plugging in the left lower lobar bronchus extending into segmental branches.
6. Small volume pneumoperitoneum related to known recent abdominal surgery.
Status post successful SMA and left subclavian revascularization on 05/24.
Acute hypoxic respiratory insufficiency
Likely multifactorial in the settings of atelectasis, sepsis, volume overload with IV fluids required for resuscitation
Echocardiogram 05/20 with normal LV size and function LVEF 55-60%. Mild to moderate TR. Pulmonary artery pressure 52 mmHg
Weaned off oxygen supplementation, stable respiratory status on room air
Incentive spirometry.
COPD without exacerbation baseline
Tobacco use disorder on nicotine patch
Counseling about quitting
Plavix resumed. Continue DAPT
CAD.
Essential hypertension.
Echocardiogram as above
Preadmission regimen including metoprolol, Imdur, Norvasc, statin.
Resume metoprolol and Imdur.
Hold Norvasc, bp well controlled at this time without
Ventricular tachycardia on telemetry. Asymptomatic and hemodynamically stable
Mg wnl
ECG.
Troponin wnl
Continue beta-elizabeth
Type 2 diabetes
Hemoglobin A1c 6.6
Has been off oral meds acutely
Preadmission regimen metformin, Jardiance, glipizide
Metformin and Jardiance equivalent Farxiga resumed, cont hold glipizide for now
PT/OT appreciated Home PT vs no needs
Anticipated Discharge: > 48 hours
Subjective/Interval History
-
Date of Service: May 29, 2024
Objective Data
-
Labs:
Laboratory Results
05/29/24
05:03
WBC 13.4 H
Hgb 13.7
Hct 39.2
Plt Count 443 H
Sodium 139
Potassium 4.6
Chloride 98
Carbon Dioxide 27
BUN 16
Creatinine 0.6 L
Glucose 139 H
Calcium 9.1
Vital Signs:
Vital Signs
Temp Pulse Resp BP Pulse Ox
97.8 F 65 15 156/67 96
05/29/24 15:20 05/29/24 15:20 05/29/24 15:20 05/29/24 15:20 05/29/24 15:20
I&O
05/28/24 05/29/24 05/30/24
06:59 06:59 06:59
Intake Total 2400 / 2400 2159 / 0
Balance 2400 / 2400 2159 / 2159
Physical Exam
-
General: Well Developed and No Apparent Distress
HEENT: Normocephalic, Atraumatic and Moist Mucous Membranes
Respiratory: Clear to Auscultation
Cardiac: Regular Rhythm and S1/S2; Negative Murmur, Rub or Gallop
GI: Soft, Nontender, Nondistended and Normal Bowel Sounds; Negative Organomegaly
Rectal: Deferred by Provider
Musculoskeletal: No Clubbing, No Cyanosis and No Edema
Skin: Negative Rash
Neuro: Nonfocal/Grossly Intact
[2024-05-29 17:15] LABS: Glucose - Point of Care 129 mg/dl (70-99)
[2024-05-29] MEDS: TOPROL XL 50 MG PO (17:59)
[2024-05-29] MEDS: FARXIGA 10 MG PO (17:59)
[2024-05-29] MEDS: LOVENOX 40 MG SC (17:59)
[2024-05-29 21:56] LABS: Glucose - Point of Care 135 mg/dl (70-99)
[2024-05-29 23:28] VITALS: BP 160/73
[2024-05-30] MEDS: ZOSYN 50 IV ×2 (02:48→08:17)
[2024-05-30 06:00] VITALS: BMI 20.1
[2024-05-30] MEDS: TYLENOL PO (06:12)
[2024-05-30 06:31] LABS: % Basophils 0.9 % (0-2); % Eosinophils 9.9 % (0-6); % Immature Granulocytes 0.9 % (0-0.5); % Lymphocytes 20.3 % (20.5-51.1); % Monocytes 9.9 % (1.7-9.3); % Neutrophils 58.1 % (42.2-75.2); Absolute Basophils 0.1 10^3/uL (0-0.2); Absolute Eosinophils 1.1 10^3/uL (0-0.7); Absolute Immature Granulocytes 0.1 10^3/uL (0-0.05); Absolute Lymphocytes 2.2 10^3/uL (1.2-3.4); Absolute Monocytes 1.1 10^3/uL (0.1-0.6); Absolute Neutrophils 6.4 10^3/uL (1.4-6.5); Hematocrit 39.3 % (39.0-52.0); Hemoglobin 13.5 g/dL (13.0-18.0); Mean Corp Hgb Conc. 34.4 g/dL (33.0-37.0); Mean Corpuscular Hgb 31.4 pg (27.0-31.0); Mean Corpuscular Volume 91.4 fL (80.0-94.0); Mean Platelet Volume 8.9 fL (7.4-10.4); Nucleated Red Blood Cells % 0 % (-); Platelet Count 481 10^3/uL (130-400); Red Cell Dist. Width 13.5 % (11.5-14.5)
[2024-05-30 06:34] LABS: Blood Urea Nitrogen 14 mg/dl (9-20); Carbon Dioxide 28 mmol/L (22-30); Chloride 99 mmol/L (98-107); Estimated Creatinine Clearance 103 ml/min; Glucose 132 mg/dl (70-99); Magnesium 2.2 mg/dl (1.6-2.3); Phosphorus 3.7 mg/dl (2.5-4.5); Potassium 4.4 mmol/L (3.5-5.1); Sodium 140 mmol/L (135-145); eGFR > 60.00
[2024-05-30 07:26] VITALS: BP 135/67
[2024-05-30 07:29] LABS: Glucose - Point of Care 157 mg/dl (70-99)
[2024-05-30] MEDS: STRIVERDI RESPIMAT 2 PUFF INH (07:43)
[2024-05-30] MEDS: SPIRIVA RESPIMAT 2.5 MCG 2 PUFF INH (07:43)
[2024-05-30] MEDS: NICODERM TRANSDERMAL 21 MG TRANSDERM (08:16)
[2024-05-30] MEDS: IMDUR (EXTENDED RELEASE) 60 MG PO ×2 (08:17→20:42)
[2024-05-30] MEDS: MIRALAX 17 GRAMS PO (08:17)
[2024-05-30] MEDS: NOVOLOG FLEXPEN-LOW RESISTANCE 1 UNITS SC (08:17)
[2024-05-30] MEDS: COLACE 100 MG PO ×2 (08:17→20:42)
[2024-05-30] MEDS: GLUCOPHAGE 1000 MG PO ×2 (08:17→17:00)
[2024-05-30] MEDS: ASPIR LOW (ENTERIC COATED) 81 MG PO (08:17)
[2024-05-30] MEDS: PROTONIX 40 MG PO (08:17)
[2024-05-30] MEDS: PLAVIX 75 MG PO (08:17)
--- NOTE | 2024-05-30 09:29 | W.PN.GS2 ---
Addendum entered and electronically signed by Shaun Hull MD 05/30/24 09:41:
Patient seen and examined with NURSE DISCHARGE. Agree with documented surgical progress note.
Overall patient states that he is feeling well. Tolerating diet, moving bowels, denies significant abdominal pain.
AFVSS
NAD AAOx3
ABD: Soft, nondistended, minimal tenderness on palpation right lower quadrant. No rebound, no guarding, no rigidity.
Assessment/plan: 64-year-old male status post ex lap partial cecectomy and subsequent left subclavian/SMA stenting
CT imaging was performed yesterday 05/29/2024 in setting of leukocytosis. Some fluid noted in the perihepatic and right lower quadrant adjacent to cecum. Consideration was given to IR drainage. Discussed with IR team today and feel as though this
is more of a simple fluid collection and not rim-enhancing therefore we will at this point hold on sampling/draining fluid.
Would continue with course of antibiotics as there may be some degree of bacterial burden in the fluid collection but no strong radiographic evidence of abscess yet.
WBC improved today, remains afebrile and no significant pain.
Original Note:
Today's Communication / Plan
-
c/w abx
Assessment / Plan
-
Assessment: 64 yo male with a h/o PAD with multiple grafts, DM & current smoker who presented with ischemic cecum
POD #11 ex lap with partial cecectomy for small portion of ischemic bowel
POD #6 left subclavian a and SMA stent with vascular surgery
AFVSS
Feeling better overall, mild tenderness to RLQ
Tolerating diet. Passing flatus and BMs
WBC trended up with CT imaging on 05/29 demonstrating fluid/air bubble adjacent to suture line at ileocolic junction. Reviewed imaging with IR today, recommend following without aspiration/intervention.
Started on empiric abx on 05/29 with resulted downtrend in WBC
Plan:
--Empiric abx, trend labs
--Continue diabetic/regular diet
--C/W Colace BID, BID Miralax
--Pain management as needed
--OOB Ambulate
--Medical management as per primary team
Subjective Data
-
Date of Service: May 30, 2024
Patient seen and examined at bedside with Dr. Hull. Denies n/v. Tolerating diet. Passing BM's. Pain minimal.
Objective Data
-
Intake and Output
05/29/24 05/30/24 05/31/24
06:59 06:59 06:59
Intake Total 2160 / 2160 2510 / 2510 50 / 50
Balance 2160 / 2160 2510 / 2510 50 / 50
Intake:
Oral fluids 2160 / 2160 2460 / 2460
IV piggybacks 50 50 / 50
Other:
Number of approximated MODERATE 3 2
amounts of urine
Vital Signs
Temp Pulse Resp BP Pulse Ox
98.2 F 79 17 135/67 94
05/30/24 07:26 05/30/24 07:47 05/30/24 07:47 05/30/24 07:26 05/30/24 07:47
Lab Results
05/30/24 04:59
05/30/24 04:59
Calcium 9.0 mg/dl (8.4-10.2) 05/30/24 04:59
Phosphorus 3.7 mg/dl (2.5-4.5) 05/30/24 04:59
Magnesium 2.2 mg/dl (1.6-2.3) 05/30/24 04:59
Total Bilirubin 0.7 mg/dl (0.2-1.3) 05/18/24 13:25
AST 23 U/L (17-59) 05/18/24 13:25
ALT 22 U/L (0-50) 05/18/24 13:25
Alkaline Phosphatase 49 U/L (38-126) 05/18/24 13:25
Total Protein 6.6 g/dl (6.3-8.2) 05/18/24 13:25
Albumin 4.2 g/dl (3.5-5.0) 05/18/24 13:25
Physical Exam
-
Gen: NAD
Abd: soft, nd, mild tenderness to RLQ, incision cdi with ishan
[2024-05-30] MEDS: TYLENOL 1000 MG PO ×3 (12:02→23:55)
[2024-05-30] MEDS: NOVOLOG FLEXPEN-LOW RESISTANCE SC ×2 (12:04→16:52)
[2024-05-30 12:05] LABS: Glucose - Point of Care 95 mg/dl (70-99)
[2024-05-30 14:53] VITALS: BP 135/58
--- NOTE | 2024-05-30 16:18 | W.PN.HOSP.TC ---
Addendum entered and electronically signed by Rodri Garcia MD 05/30/24 16:43:
Sepsis and septic shock on presentation currently resolved.
Original Note:
Today's Communication/Plan
-
Diet has been advanced.
Afebrile.
Noted trending down WBC since initiation of antibiotics on 05/29
Low clinical suspicion for abscess, most likely postoperative fluid collection
Plan is to transition to oral antibiotics following WBC and temperature curve closely.
Assessment / Plan
Assessment / Plan
IMPRESSION:
64M PAD b/l lower ext bypass CAD HTN HLD DM COPD severe stenosis SMA chronic mesenteric ischemia p/w progressive abd pain for two days right sided. Initially symptoms started with nausea and one episode of vomiting. Since then patient has had
reduced oral intake due to pain. Last bowel movement was also two days ago. Denies history of abd surgeries. Patient was notably hypotensive during ED evaluation and received 2L with subsequent improvement noted though pressures remain borderline
low systolic high 80s to 90s, MAP consistently >65. Intermittently tachy to 100 with wbc 19.9 concerning for severe sepsis/shock. Otherwise afebrile, no significant lactic acidosis. Stable respiratory status non-labored. CT abd/pelvis with IV
contrast (no oral) concerning for small bowel enteritis and partial bowel obstruction.
Sepsis with septic shock requiring vasopressors.
Acute ischemic bowel.
Acute hypoxic respiratory insufficiency secondary to atelectasis and volume overload. Requiring nasal cannula oxygen at 4 L.
Metabolic acidosis
SMA and celiac stenosis
Conditions prior to admission:
PAD
-Status post left common femoral endarterectomy with patch angioplasty with bovine pericardium, left SMA to below knee popliteal artery bypass with propaten graft.
CAD
Carotid artery stenosis
COPD
Pulmonary nodule on CT of the chest
Tobacco use disorder.
Sciatica
PLAN:
Acute small bowel ischemia with septic shock
CT angiogram
1. SEVERE WALL THICKENING in the CECUM with adjacent pericecal inflammation and a small amount of adjacent ascites which has increased since 05/18/2024. Mild wall thickening throughout the transverse colon, descending colon, and sigmoid colon
which is most suggestive of an acute colitis (most pronounced in the cecum). Moderate circumferential wall thickening in right lower quadrant ileal loops suggestive of either an acute enteritis or reactive wall thickening. Diagnostic possibilities
are (1) an acute infectious or inflammatory enterocolitis, (2) acute cecal diverticulitis, (3) acute ischemic enterocolitis, or (4) less likely cecal adenocarcinoma.
2. Moderate diverticulosis throughout the sigmoid colon.
3. Severe calcific atherosclerotic plaque in the abdominal aorta, iliac, and femoral arteries with patent bilateral external iliac artery stents and patent left common iliac artery stent in place.
4. Bilateral lower extremity femoral bypass grafts in place which appear patent. Occluded bilateral proximal superficial femoral arteries.
5. Severe greater than 70% diameter stenosis in the superior mesenteric artery, 50-70% diameter stenosis in the celiac artery, and patent inferior mesenteric artery.
6. Moderate diffuse hepatic steatosis.
7. Acute interstitial cardiogenic pulmonary edema.
8. Minimal bilateral pleural effusions
9. Moderate multilevel lumbar discogenic degenerative disease.
Status post exploratory laparotomy and partial cecotomy 05/19.
Noted with rising WBC
Follow-up CT scan 05/29 with concern of right lower quadrant collection
Antibiotics/Zosyn reinstated on 05/29
In review of imaging, it could be simple fluid collection postoperatively with no rim-enhancing.
Monitor closely
WBC trending down with initiation of antibiotics. Plan is to transition from Zosyn to Augmentin and follow WBC over the next 24 to 48 hours.
PAD
Carotid artery stenosis.
Status post lower extremity revascularization as above.
Noted with severe greater than 70% stenosis and SMA and celiac artery.
Vascular surgery consultation
CT angio 05/21:
IMPRESSION:
1. Occlusion of the left subclavian artery. Moderate stenosis at the origin of the brachiocephalic artery.
2. Advanced aortic atherosclerotic changes without aneurysmal dilation or flow limiting stenosis. Severe coronary artery calcification.
3. Mild to moderate CHF with very small bilateral effusions with adjacent atelectasis.
4. Emphysema.
5. Secretions/mucous plugging in the left lower lobar bronchus extending into segmental branches.
6. Small volume pneumoperitoneum related to known recent abdominal surgery.
Status post successful SMA and left subclavian revascularization on 05/24.
Acute hypoxic respiratory insufficiency
Likely multifactorial in the settings of atelectasis, sepsis, volume overload with IV fluids required for resuscitation
Echocardiogram 05/20 with normal LV size and function LVEF 55-60%. Mild to moderate TR. Pulmonary artery pressure 52 mmHg
Weaned off oxygen supplementation, stable respiratory status on room air
Incentive spirometry.
COPD without exacerbation baseline
Tobacco use disorder on nicotine patch
Counseling about quitting
Plavix resumed. Continue DAPT
CAD.
Essential hypertension.
Echocardiogram as above
Preadmission regimen including metoprolol, Imdur, Norvasc, statin.
Resume metoprolol and Imdur.
Hold Norvasc, bp well controlled at this time without
Ventricular tachycardia on telemetry. Asymptomatic and hemodynamically stable
Mg wnl
ECG.
Troponin wnl
Continue beta-elizabeth
Type 2 diabetes
Hemoglobin A1c 6.6
Has been off oral meds acutely
Preadmission regimen metformin, Jardiance, glipizide
Metformin and Jardiance equivalent Farxiga resumed, cont hold glipizide for now
PT/OT appreciated Home PT vs no needs
Anticipated Discharge: 24 - 48 hours
Subjective/Interval History
-
Date of Service: May 30, 2024
Objective Data
-
Labs:
Laboratory Results
05/30/24
04:59
WBC 11.0 H
Hgb 13.5
Hct 39.3
Plt Count 481 H
Sodium 140
Potassium 4.4
Chloride 99
Carbon Dioxide 28
BUN 14
Creatinine 0.7
Glucose 132 H
Calcium 9.0
Vital Signs:
Vital Signs
Temp Pulse Resp BP Pulse Ox
98 F 77 16 135/58 94
05/30/24 14:53 05/30/24 14:53 05/30/24 14:53 05/30/24 14:53 05/30/24 14:53
I&O
05/29/24 05/30/24 05/31/24
06:59 06:59 06:59
Intake Total 2160 / 2160 2510 / 2510 50 / 50
Balance 2160 / 2160 2510 / 2510 50 / 50
Physical Exam
-
General: Well Developed and No Apparent Distress
HEENT: Normocephalic, Atraumatic and Moist Mucous Membranes
Respiratory: Clear to Auscultation
Cardiac: Regular Rhythm and S1/S2; Negative Murmur, Rub or Gallop
GI: Soft, Nontender, Nondistended and Normal Bowel Sounds; Negative Organomegaly
Rectal: Deferred by Provider
Musculoskeletal: No Clubbing, No Cyanosis and No Edema
Skin: Negative Rash
Neuro: Nonfocal/Grossly Intact
[2024-05-30 16:42] LABS: Glucose - Point of Care 129 mg/dl (70-99)
[2024-05-30] MEDS: TOPROL XL 50 MG PO (17:00)
[2024-05-30] MEDS: FARXIGA 10 MG PO (17:00)
[2024-05-30] MEDS: LOVENOX 40 MG SC (17:00)
[2024-05-30] MEDS: AUGMENTIN 875 MG/125 MG 1 TABLET PO (20:42)
[2024-05-30 21:01] LABS: Glucose - Point of Care 136 mg/dl (70-99)
[2024-05-30] MEDS: MIRALAX PO (21:29)
[2024-05-30 22:56] VITALS: BP 131/64
[2024-05-31] MEDS: TYLENOL 1000 MG PO ×2 (05:00→12:12)
[2024-05-31 06:24] LABS: % Eosinophils 9.7 % (0-6); % Lymphocytes 22.8 % (20.5-51.1); % Monocytes 10.3 % (1.7-9.3); % Neutrophils 55.2 % (42.2-75.2); Absolute Basophils 0.1 10^3/uL (0-0.2); Absolute Eosinophils 1.1 10^3/uL (0-0.7); Absolute Immature Granulocytes 0.1 10^3/uL (0-0.05); Absolute Lymphocytes 2.5 10^3/uL (1.2-3.4); Absolute Monocytes 1.1 10^3/uL (0.1-0.6); Absolute Neutrophils 6.1 10^3/uL (1.4-6.5); Hematocrit 40.1 % (39.0-52.0); Hemoglobin 14.3 g/dL (13.0-18.0); Mean Corp Hgb Conc. 35.7 g/dL (33.0-37.0); Mean Corpuscular Hgb 33.3 pg (27.0-31.0); Mean Corpuscular Volume 93.5 fL (80.0-94.0); Mean Platelet Volume 8.7 fL (7.4-10.4); Nucleated Red Blood Cells % 0 % (-); Platelet Count 474 10^3/uL (130-400); Red Blood Cell Count 4.29 10^6/uL (4.70-6.10); Red Cell Dist. Width 13.3 % (11.5-14.5)
[2024-05-31 06:44] LABS: Blood Urea Nitrogen 15 mg/dl (9-20); Calcium 9.2 mg/dl (8.4-10.2); Carbon Dioxide 27 mmol/L (22-30); Chloride 101 mmol/L (98-107); Estimated Creatinine Clearance 119 ml/min; Glucose 148 mg/dl (70-99); Magnesium 2.1 mg/dl (1.6-2.3); Phosphorus 3.7 mg/dl (2.5-4.5); Potassium 4.5 mmol/L (3.5-5.1); Sodium 139 mmol/L (135-145); eGFR > 60.00
[2024-05-31] MEDS: STRIVERDI RESPIMAT 2 PUFF INH (07:15)
[2024-05-31] MEDS: SPIRIVA RESPIMAT 2.5 MCG 2 PUFF INH (07:16)
[2024-05-31 07:20] VITALS: BP 117/69
[2024-05-31 07:21] LABS: Glucose - Point of Care 138 mg/dl (70-99)
[2024-05-31] MEDS: NOVOLOG FLEXPEN-LOW RESISTANCE SC ×2 (07:24→12:12)
[2024-05-31] MEDS: COLACE PO (08:12)
[2024-05-31] MEDS: MIRALAX PO (08:12)
[2024-05-31] MEDS: IMDUR (EXTENDED RELEASE) 60 MG PO (08:13)
[2024-05-31] MEDS: GLUCOPHAGE 1000 MG PO (08:13)
[2024-05-31] MEDS: PROTONIX 40 MG PO (08:13)
[2024-05-31] MEDS: NICODERM TRANSDERMAL 21 MG TRANSDERM (08:13)
[2024-05-31] MEDS: ASPIR LOW (ENTERIC COATED) 81 MG PO (08:13)
[2024-05-31] MEDS: AUGMENTIN 875 MG/125 MG 1 TABLET PO (08:13)
[2024-05-31] MEDS: PLAVIX 75 MG PO (08:13)
--- NOTE | 2024-05-31 10:38 | W.PN.GS2 ---
Addendum entered and electronically signed by Kevin Diamond MD 05/31/24 10:56:
I saw and examined the patient.
The Aerial Photograph Interpreter's note was reviewed and I agree with the note.
Comment: No complaints. Exam benign. WBC stable. AFVSS. OK for DC home with 7 days augmentin 875mg.
Original Note:
Today's Communication / Plan
-
C/w abx
Dispo planning
Assessment / Plan
-
Assessment: 64 yo male with a h/o PAD with multiple grafts, DM & current smoker who presented with ischemic cecum
POD #12 ex lap with partial cecectomy for small portion of ischemic bowel
POD #7 left subclavian a and SMA stent with vascular surgery
AFVSS
Feeling better overall
Tolerating diet. Passing flatus and BMs
WBC trended up with CT imaging on 05/29 demonstrating fluid/air bubble adjacent to suture line at ileocolic junction. Reviewed imaging with IR today, recommend following without aspiration/intervention.
Started on empiric abx on 05/29 with resulted downtrend in WBC. WBC trended down, stable now on abx. Transitioned to PO abx by medicine team on 05/30
Plan:
--Continue abx
--Continue diabetic/regular diet
--C/W Colace BID, BID Miralax
--Pain management as needed
--OOB Ambulate
--Medical management as per primary team
Ok for discharge from GS standpoint on oral abx, will follow up in one week for repeat exam and removal of ishan
Subjective Data
-
Date of Service: May 31, 2024
Patient seen and examined at bedside. Denies n/v. Tolerating diet. Denies pain.
Objective Data
-
Intake and Output
05/30/24 05/31/24 06/01/24
06:59 06:59 06:59
Intake Total 2510 / 2510 2450 / 2450
Balance 2510 / 2510 2450 / 2450
Intake:
Oral fluids 2460 / 2460 2400 / 2400
IV piggybacks 50 / 50 50 / 50
Other:
Number of approximated MODERATE 2 3
amounts of urine
Vital Signs
Temp Pulse Resp BP Pulse Ox
97.5 F 71 15 117/69 94
05/31/24 07:20 05/31/24 07:20 05/31/24 07:20 05/31/24 07:20 05/31/24 07:20
Lab Results
05/31/24 06:04
05/31/24 06:04
Calcium 9.2 mg/dl (8.4-10.2) 05/31/24 06:04
Phosphorus 3.7 mg/dl (2.5-4.5) 05/31/24 06:04
Magnesium 2.1 mg/dl (1.6-2.3) 05/31/24 06:04
Total Bilirubin 0.7 mg/dl (0.2-1.3) 05/18/24 13:25
AST 23 U/L (17-59) 05/18/24 13:25
ALT 22 U/L (0-50) 05/18/24 13:25
Alkaline Phosphatase 49 U/L (38-126) 05/18/24 13:25
Total Protein 6.6 g/dl (6.3-8.2) 05/18/24 13:25
Albumin 4.2 g/dl (3.5-5.0) 05/18/24 13:25
Physical Exam
-
Gen: NAD
Abd: soft, nd, NT, incision cdi with ishan
[2024-05-31 12:08] LABS: Glucose - Point of Care 102 mg/dl (70-99)
--- NOTE | 2024-05-31 13:58 | W.DS.TRANS ---
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
-
Discharge Instructions:
Discharge Diagnosis/Procedures Sepsis with septic shock requiring vasopressors.
Acute ischemic bowel.
Acute hypoxic respiratory insufficiency
secondary to atelectasis and volume overload.
Requiring nasal cannula oxygen at 4 L.
Metabolic acidosis
SMA and celiac stenosis
Diet Regular
Activity No strenuous activity
Additional Activity Do not lift over 15 lbs for the next 4-6 weeks
Driving Restrictions No driving for 1 week
Bathing Restrictions OK to Shower
Wound Care Keep your incision clean and dry. Cover with a
dry gauze dressing if you notice drainage and
change this dressing every day. The ishan over
your incision will be removed in your surgeon's
office 2-3 weeks from your surgery.
Instructions:
Stand-Alone Forms: DC Instr - Vascular OR
Changes to Home Medications: Yes
Discharge Medications:
DC Medications w/original date entered in [facility]
aspirin 81 mg tablet,delayed release 81 mg PO DAILY Blood Clot Prevention/Tx 05/13/13
metoprolol succinate 50 mg tablet,extended release 24 hr 50 mg PO QPM 05/19/20
atorvastatin 40 mg tablet 40 mg PO QPM High Cholesterol 07/11/23
empagliflozin 10 mg tablet (Jardiance) 10 mg PO QPM Diabetes 07/11/23
multivitamin 1 tab PO DAILY Supplement 07/11/23
isosorbide mononitrate 60 mg tablet,extended release 24 hr 60 mg PO BID Heart Disease/Condition 08/24/23
glipizide 5 mg tablet 5 mg PO BID@0800,1700 #60 tabs 09/05/23
clopidogrel 75 mg tablet 75 mg PO DAILY Blood Clot Prevention/Tx 05/18/24
metformin 500 mg tablet 1,000 mg PO BID@0800,1700 Diabetes 05/18/24
amoxicillin 875 mg-potassium clavulanate 125 mg tablet 1 tab PO Q12 #14 tabs 05/31/24
docusate sodium 100 mg capsule 100 mg PO BID #30 caps 05/31/24
nicotine 21 mg/24 hr daily transdermal patch 21 mg transdermal DAILY #30 ea 05/31/24
pantoprazole 40 mg tablet,delayed release 40 mg PO DAILY #30 tabs 05/31/24
tiotropium bromide 2.5 mcg/actuation mist for inhalation (Spiriva Respimat) 2 puff inhalation R DAILY #4 grams 05/31/24
Home Medication Changes
DAPT with PPI added.
Glipizide has been on hold until seen by PMD
Pending Results: No
--- NOTE | 2024-05-31 14:03 | CM ---
Reviewed the chart notes. CM continues to be available to patient/family and is monitoring medical plan for needs at discharge.
Plan: Discharge to home today with [facility] services.
[2024-05-31 14:30] VITALS: BP 132/57
== END 2024-05-31 15:16 | disposition home health service (06) | DRG 853 ==
LOC: 2 SOUTH 19:39
PROVIDERS: Emergency Medicine; Nurse Practitioner; Physician Assistant; ADMITTING PHYSICIAN Internal Medicine; ATTENDING PHYSICIAN Internal Medicine; CONSULT PHYSICIAN Surgery; CONSULT PHYSICIAN Surgery Vascular Surgery; EMERGENCY PHYSICIAN Emergency Medicine; FAMILY PHYSICIAN Family Medicine; OTHER PHYSICIAN Internal Medicine Critical Care Medicine
PROC: 0DBH0ZZ Excision of Cecum, Open Approach (ICD-10-PCS; 2024-05-19)
PROC: B4101ZZ Fluoroscopy of Abdominal Aorta using Low Osmolar Contrast (ICD-10-PCS; 2024-05-24)
PROC: B4141ZZ Fluoroscopy of Superior Mesenteric Artery using Low Osmolar Contrast (ICD-10-PCS; 2024-05-24)
PROC: 04FY3ZZ Fragmentation of Lower Artery, Percutaneous Approach (ICD-10-PCS; 2024-05-24)
PROC: 047Y3DZ Dilation of Lower Artery with Intraluminal Device, Percutaneous Approach (ICD-10-PCS; 2024-05-24)
PROC: 037Y3DZ Dilation of Upper Artery with Intraluminal Device, Percutaneous Approach (ICD-10-PCS; 2024-05-24)
PROC: B31J1ZZ Fluoroscopy of Left Upper Extremity Arteries using Low Osmolar Contrast (ICD-10-PCS; 2024-05-24)
PROC: 03F Upper Arteries, Fragmentation (ICD-10-PCS; 2024-05-24)
DX: A41.9 Sepsis, unspecified organism (principal); K55.031 Focal (segmental) acute (reversible) ischemia of large intestine; K65.9 Peritonitis, unspecified; R65.21 Severe sepsis with septic shock; E87.20 Acidosis, unspecified; K55.1 Chronic vascular disorders of intestine; G12.9 Spinal muscular atrophy, unspecified; J98.11 Atelectasis; K56.690 Other partial intestinal obstruction; E11.51 Type 2 diabetes mellitus with diabetic peripheral angiopathy without gangrene; I25.10 Atherosclerotic heart disease of native coronary artery without angina pectoris; E11.65 Type 2 diabetes mellitus with hyperglycemia; I77.1 Stricture of artery; E78.00 Pure hypercholesterolemia, unspecified; I70.8 Atherosclerosis of other arteries; R09.02 Hypoxemia; E87.70 Fluid overload, unspecified; I65.29 Occlusion and stenosis of unspecified carotid artery; F17.210 Nicotine dependence, cigarettes, uncomplicated; I10 Essential (primary) hypertension; I07.1 Rheumatic tricuspid insufficiency; R91.1 Solitary pulmonary nodule; K76.0 Fatty (change of) liver, not elsewhere classified; J43.1 Panlobular emphysema; Z79.02 Long term (current) use of antithrombotics/antiplatelets; Z79.82 Long term (current) use of aspirin; Z79.84 Long term (current) use of oral hypoglycemic drugs; Z79.899 Other long term (current) drug therapy; Z82.49 Family history of ischemic heart disease and other diseases of the circulatory system; Z95.5 Presence of coronary angioplasty implant and graft
CPT/HCPCS: 88307; 36215; 36245; 37236; 37237; 71045; 71275; 74022; 74174; 74177; 75625; 80048; 80053; 81003; 81015; 82962; 83036; 83605; 83690; 83735; 83880; 84100; 84484; 85025; 85027; 85610; 85730; 86850; 86900; 86901; 86920; 87040; 93005; 93306; 94640; 96361; 96365; 96366; 96375; 97116; 97162; 97166; 97530; 97535; 99291; 99406; C1725; C1769; C1874; C1894; Q9967

== ENCOUNTER → 2024-07-09 14:55 | Outpatient (REF) | payer BC, SELFPAY | LOC: RAD 14:55 | PROVIDERS: ATTENDING PHYSICIAN Registered Nurse; FAMILY PHYSICIAN Family Medicine | DX: K55.059 Acute (reversible) ischemia of intestine, part and extent unspecified (principal); I77.1 Stricture of artery; Z48.89 Encounter for other specified surgical aftercare | CPT/HCPCS: 71275; 74174; 93922; 93925; Q9967 ==

== ENCOUNTER → 2025-01-13 13:59 | Outpatient (REF) | payer BC, SELFPAY | LOC: RAD 13:59 | PROVIDERS: ATTENDING PHYSICIAN Surgery Vascular Surgery; FAMILY PHYSICIAN Family Medicine | DX: I73.9 Peripheral vascular disease, unspecified (principal) | CPT/HCPCS: 93922; 93925; 93931; 93975 ==